=== PATIENT | female | born 1955 | race Hispanic/Latino ===

== ENCOUNTER 2019-07-25 11:08 | Emergency (ER) | payer OTHER ==
[2019-07-25] MEDS ORDERED: NA CHLORIDE 0.9% 2,000 ML ONE (11:49)
--- NOTE | 2019-07-25 12:15 | RAD REPORT ---
EXAM DESCRIPTION: RAD - Chest Single View - 07/25/2019 12:09 pm CLINICAL HISTORY: abdominal pain Chest pain. COMPARISON: Chest Pa And Lat (2 Views) dated 02/10/2017; CHEST PA AND LAT 2 VIEW dated 11/23/2011; SUNSHINE ST SINGLE VIEW dated 03/03/2011; CHEST SINGLE VIEW dated 02/10/2011 FINDINGS: Portable technique limits examination quality. The lungs are grossly clear. The heart is normal in size. No displaced fractures. IMPRESSION: No acute intrathoracic process suspected.
[2019-07-25] MEDS ORDERED: metroNIDAZOLE 500 MG TABLET ONE (12:39)
[2019-07-25] MEDS ORDERED: ACETAMINOPHEN 500 MG TAB ONE (12:40)
[2019-07-25] MEDS ORDERED: CIPROFLOXACIN 400mg IV 0 MG/0 ML BAG IV ONE (12:40)
[2019-07-25 12:41] LABS: Absolute Lymphocytes (CBC) 1.2 K/uL (0.7-4.9); Basophils % 0.5 % (0-1.3); Hematocrit 42.7 % (36.0-45.0); Lymphocytes % 7.4 % (15.3-44.8); MPV 9.1 fL (7.6-11.3); RBC Red Blood Cell Count 5.11 M/uL (3.86-4.86)
[2019-07-25] MEDS ORDERED: Levofloxacin500mg IV 500 MG/100 ML BAG IV ONE (12:42)
[2019-07-25 12:58] LABS: ALT/SGPT 24 U/L (12-78); AST/SGOT 17 U/L (15-37); Albumin 4.2 g/dL (3.4-5.0); Alkaline Phosphatase 87 U/L (45-117); Amylase Level 34 U/L (25-115); BUN Blood Urea Nitrogen 11 mg/dL (7-18); Bicarbonate 23 mmol/L (21-32); Bilirubin Direct 0.2 mg/dL (0-0.2); Bilirubin Total 1.1 mg/dL (0.2-1.0); CKMB Creatine Kinase MB < 1.0 ng/mL (0.3-3.6); Creatine Phosphokinase 45 U/L (26-192); Glucose Level 102 mg/dL (74-106); Lipase 79 U/L (73-393); Potassium 3.6 mmol/L (3.5-5.1); Protein, Total 8.5 g/dL (6.4-8.2); Sodium Level 139 mmol/L (136-145); Troponin (Emerg Dept Use Only) < 0.02 ng/mL (0.0-0.045)
[2019-07-25 13:00] LABS: Urine Blood 2+ (NEG); Urine Glucose NEGATIVE (NEG); Urine Protein NEGATIVE (NEG); Urine Specific Gravity 1.015 (1.005-1.030)
[2019-07-25 13:07] LABS: Urine Bacteria <20 /HPF (<20); Urine Culture Reflex Order NOT NEEDED; Urine RBC <5 /HPF (NONE SEEN)
[2019-07-25 13:13] LABS: Blood Morphology Comment NOT SEEN (NOT SEEN); Platelet Estimate ADEQ; Urine White Blood Cell Casts OK
--- NOTE | 2019-07-25 13:37 | RAD REPORT ---
EXAM DESCRIPTION: CT - Head Brain Wo Cont - 07/25/2019 1:27 pm CLINICAL HISTORY: HEADACHE Headache, drowsiness COMPARISON: SINUS W O CONTRAST dated 04/06/2009 TECHNIQUE: All CT scans are performed using dose optimization technique as appropriate and may inclu de automated exposure control or mA/KV adjustment according to patient size. FINDINGS: No intracranial hemorrhage, hydrocephalus or extra-axial fluid collection.No areas of brai n edema or evidence of midline shift. The paranasal sinuses and mastoids are clear. The calvarium is intact. IMPRESSION: No acute intracranial abnormality.
--- NOTE | 2019-07-25 13:43 | RAD REPORT ---
EXAM DESCRIPTION: CTAbdomen Pelvis W Contrast - 07/25/2019 1:27 pm CLINICAL HISTORY: Abdominal pain. ABD PAIN COMPARISON: Abdomen Pelvis W Contrast dated 02/10/2017; CT ABD PELVIS W CONTRAST dated 08/08/2013; CT ABD PELVIS W CONTRAST dated 12/17/2008 TECHNIQUE: Biphasic CT imaging of the abdomen and pelvis was performed with 100 ml non-ionic IV cont rast. All CT scans are performed using dose optimization technique as appropriate and may include automated exposure control or mA/KV adjustment according to patient size. FINDINGS: The lung bases are emphysematous but clear. Diffuse fatty liver is present. No focal liver lesion or biliary dilatation. The spleen, pancreas, ad renal glands and kidneys are within normal limits. No bowel obstruction, free air, free fluid or abscess. Small fat containing umbilical hernia. The tania endix is normal. Inflammatory changes are present surrounding a short segment of the sigmoid colon in the left lower quadrant measuring 5-6 cm. This likely represents moderate acute diverticulitis. No e vidence of significant lymphadenopathy. No suspicious bony findings. IMPRESSION: Moderate acute left lower quadrant sigmoid diverticulitis is seen.
[2019-07-25] MEDS ORDERED: ONDANSETRON 4 MG/2 ML VIAL ONE (14:15)
[2019-07-25] MEDS ORDERED: MORPHINE 4 MG/ML SYR ONE (14:15)
--- NOTE | 2019-07-25 14:34 | ER ---
Nurse's Notes [facility] Name: Awa Tracy Age: 63 yrs Sex: Female : 1955 Arrival Date: 07/25/2019 Time: 11:14 Bed 2 Private MD: Baljeet Luevano F Diagnosis: Sigmoid diverticulitis;Abdominal and pelvic pain;Headache Presentation: 07/25 11:33 Presenting complaint: Patient states: "Last night I started having pain all down here aj1 (pt points to lower abdomen) and I was just shaking and so cold and nauseated and I have a bad headache" Patient reports RLQ and LLQ abdominal pain. Reports N/V/D. Reports fever. Transition of care: patient was not received from another setting of care. Onset of symptoms was July 2019. Risk Assessment: Do you want to hurt yourself or someone else? Patient reports no desire to harm self or others. Initial Sepsis Screen: Does the patient meet any 2 criteria? HR > 90 bpm. No. Patient's initial sepsis screen is negative. Does the patient have a suspected source of infection? Yes: Acute abdominal pain. Care prior to arrival: None. 11:33 Method Of Arrival: Ambulatory aj1 11:33 Acuity: NICHOL 3 aj1 Triage Assessment: 11:36 General: Appears in no apparent distress. uncomfortable, Behavior is calm, cooperative, aj1 appropriate for age. Pain: Complains of pain in right lower quadrant and left lower quadrant. Neuro: Level of Consciousness is awake, alert, obeys commands. Cardiovascular: Patient's skin is warm and dry. Respiratory: Airway is patent Respiratory effort is even, unlabored, Respiratory pattern is regular, symmetrical. GI: Reports diarrhea, nausea, vomiting. Historical: - Allergies: 11:36 PENICILLINS; aj1 - Home Meds: 11:36 Coreg 6.25 mg Oral tab 1 tab 2 times per day [Active]; Livalo 2 mg Oral tab 1 tab once aj1 daily [Active]; amlodipine oral [Active]; - PMHx: 11:36 Hyperlipidemia; Hypertension; aj1 - Immunization history:: Flu vaccine is not up to date. - Coronavirus screen:: The patient has NOT traveled to [place], [place], or [place] in the past 14 days. - Social history:: Smoking status: Patient/guardian denies using tobacco. - Ebola Screening: : Patient denies travel to an Ebola-affected area in the 21 days before illness onset. Screenin:30 Abuse screen: Denies threats or abuse. Denies injuries from another. Nutritional jl7 screening: No deficits noted. Tuberculosis screening: No symptoms or risk factors identified. Fall Risk IV access (20 points). Total Baumann Fall Scale indicates No Risk (0-24 pts). Assessment: 12:00 General: Appears in no apparent distress. uncomfortable, ill, Behavior is cooperative. jl7 Pain: Complains of pain in left lower quadrant and right lower quadrant Pain currently is 9 out of 10 on a pain scale. Pain began 1 day ago. Is continuous. Pain: Complains of pain in GUTIERREZ Pain currently is 8 out of 10 on a pain scale. Neuro: Level of Consciousness is awake, alert, obeys commands, Oriented to person, place, time, situation. Cardiovascular: Patient's skin is warm and dry. Respiratory: Airway is patent Respiratory effort is even, unlabored, Respiratory pattern is regular, symmetrical. GI: Bowel sounds present X 4 quads. Abdomen is tender to palpation in right lower quadrant and left lower quadrant Reports diarrhea, nausea, vomiting. : No signs and/or symptoms were reported regarding the genitourinary system. Derm: Skin is pink, warm \\T\\ dry. 13:00 Reassessment: Patient appears in no apparent distress at this time. No changes from jl7 previously documented assessment. Patient and/or family updated on plan of care and expected duration. Pain level reassessed. Patient is alert, oriented x 3, equal unlabored respirations, skin warm/dry/pink. 14:04 Reassessment: Patient appears in no apparent distress at this time. Patient and/or jl7 family updated on plan of care and expected duration. Pain level reassessed. Patient is alert, oriented x 3, equal unlabored respirations, skin warm/dry/pink. GUTIERREZ rated 5/10, abdominal pain rated 9/10, ERD notified, see MAR for orders. Vital Signs: 11:36 BP 137 / 106; Pulse 110; Resp 18; Temp 100.1; Pulse Ox 95% ; Weight 71.21 kg (R); aj1 Height 5 ft. 4 in. (162.56 cm) (R); Pain 9/10; 12:30 BP 143 / 87; Pulse 98; Resp 17 S; Temp 98.8(O); Pulse Ox 96% on R/A; jl7 14:00 BP 122 / 79; Pulse 89; Resp 17 S; Pulse Ox 95% on R/A; Pain 9/10; jl7 14:23 BP 134 / 78; Pulse 87; Resp 19 S; Pulse Ox 96% on R/A; Pain 2/10; jl7 11:36 Body Mass Index 26.95 (71.21 kg, 162.56 cm) aj1 ED Course: 11:14 Patient arrived in ED. es 11:14 Baljeet Luevano MD is Private Physician. es 11:35 Triage completed. aj1 11:36 Arm band placed on Patient placed in an exam room. aj1 11:39 Pasquale Lopez, EJ is Primary Nurse. jl7 11:42 Hitehs Sagastume MD is Attending Physician. kdr 12:00 Patient has correct armband on for positive identification. Placed in gown. Bed in low jl7 position. Call light in reach. Side rails up X2. monitoring specialist on. Pulse ox on. NIBP on. Warm blanket given. 12:10 Chest Single View XRAY In Process Unspecified. EDMS 12:19 EKG done, by ED staff, reviewed by Hitesh Sagastume MD. jb1 12:20 Inserted saline lock: 22 gauge in right forearm, using aseptic technique. Blood jl7 collected. 12:20 Initial lab(s) drawn, by ne, sent to lab. First set of blood cultures drawn by me. jl7 12:40 Second set of blood cultures drawn by me. jl7 13:27 CT Head Brain wo Cont In Process Unspecified. EDMS 13:27 CT completed. Patient tolerated procedure well. Patient moved back from CT. bq 13:28 CT Abd/Pelvis - IV Contrast Only In Process Unspecified. EDMS 14:30 Hitesh Saagstume MD is Referral Physician. kdr 14:49 No provider procedures requiring assistance completed. IV discontinued, intact, ss bleeding controlled, No redness/swelling at site. Pressure dressing applied. Administered Medications: 12:25 Drug: NS 0.9% (30 ml/kg) 30 ml/kg Route: IV; Rate: bolus; Site: right forearm; jl7 14:50 Follow up: IV Status: Completed infusion ss 12:50 Drug: LevaQUIN 500 mg Volume: 100 ml; Route: IVPB; Infused Over: 60 mins; Site: right jl7 forearm; 13:20 Follow up: IV Pause: 07/25/2019 13:20; IV Pause Reason: Patient to CT jl7 13:50 Follow up: IV Resume: 07/25/2019 13:50; IV Resume Reason: Patient returned from CT jl7 14:18 Follow up: Response: No adverse reaction; IV Status: Completed infusion jl7 12:55 Drug: Flagyl 500 mg Route: PO; jl7 14:18 Follow up: Response: No adverse reaction jl7 13:00 Drug: Tylenol 1000 mg Route: PO; jl7 14:03 Follow up: Response: No adverse reaction; Pain is decreased jl7 14:12 Drug: Zofran 4 mg Route: IVP; Site: right forearm; jl7 14:22 Follow up: Response: No adverse reaction jl7 14:14 Drug: morphine 4 mg Route: IVP; Site: right forearm; jl7 14:22 Follow up: Response: No adverse reaction; Pain is decreased 7 Outcome: 14:33 [address] ordered [address] . [facility] 14:49 Discharged to home via wheelchair, with family. 14:49 Condition: good 14:49 Instructed on discharge instructions, follow up and referral plans. medication usage, Demonstrated understanding of instructions, follow-up care, medications, Prescriptions given X 4. 14:49 Patient left the ED. Signatures: Dispatcher [employer] Rolando Gallegos jb1 Sagrario Sanchez RN RN aj1 Hitesh Sagastume MD MD kdr Salyer, Edna es Quilty, Betty bq Smirch, Shelby, RN RN Pasquale Lopez RN RN jl7 Corrections: (The following items were deleted from the chart) 11:46 11:33 Initial Sepsis Screen: Does the patient meet any 2 criteria? HR > 90 bpm. No. aj1 Patient's initial sepsis screen is negative. Does the patient have a suspected source of infection? Yes: Acute abdominal pain aj1
--- NOTE | 2019-07-25 14:34 | EDPHYS ---
Physician Documentation [facility] Name: Awa Tracy Age: 63 yrs Sex: Female : 1955 Arrival Date: 07/25/2019 Time: 11:14 Bed 2 Private MD: Baljeet Luevano F ED Physician Hitesh Sagastume HPI: 07/25 12:09 This 63 yrs old Female presents to ER via Ambulatory with complaints of kdr Abdominal Pain, Fever, Headache, Nausea. 12:09 The patient reports fever, not measured (subjective). Onset: The symptoms/episode kdr began/occurred gradually, yesterday. Modifying factors: there are no obvious modifying factors. Associated signs and symptoms: Pertinent positives: abdominal pain, chills, decreased appetite, headache, myalgias, nausea. Severity of symptoms: At their worst the symptoms were moderate in the emergency department the symptoms are unchanged. The patient has not experienced similar symptoms in the past. The patient has not recently seen a physician. Historical: - Allergies: 11:36 PENICILLINS; aj1 - Home Meds: 11:36 Coreg 6.25 mg Oral tab 1 tab 2 times per day [Active]; Livalo 2 mg Oral tab 1 tab once aj1 daily [Active]; amlodipine oral [Active]; - PMHx: 11:36 Hyperlipidemia; Hypertension; aj1 - Immunization history:: Flu vaccine is not up to date. - Coronavirus screen:: The patient has NOT traveled to [place], [place], or [place] in the past 14 days. - Social history:: Smoking status: Patient/guardian denies using tobacco. - Ebola Screening: : Patient denies travel to an Ebola-affected area in the 21 days before illness onset. ROS: 12:09 Constitutional: Negative for weight loss - the patient hsa had subjective fever and kdr chills after the onset of her abdominal pain Eyes: Negative for injury, pain, redness, and discharge, ENT: Negative for injury, pain, and discharge, Neck: Negative for injury, pain, and swelling, Cardiovascular: Negative for chest pain, palpitations, and edema, Respiratory: Negative for shortness of breath, cough, wheezing, and pleuritic chest pain, Back: Negative for injury and pain, : Negative for injury, bleeding, discharge, and swelling, MS/Extremity: Negative for injury and deformity, Skin: Negative for injury, rash, and discoloration, Neuro: Negative for headache, weakness, numbness, tingling, and seizure activity. Psych: Negative for depression, anxiety, suicide ideation, homicidal ideation, and hallucinations, Allergy/Immunology: Negative for hives, rash, and allergies, Endocrine: Negative for neck swelling, polydipsia, polyuria, polyphagia, and marked weight changes, Hematologic/Lymphatic: Negative for swollen nodes, abnormal bleeding, and unusual bruising. 12:09 Abdomen/GI: Positive for abdominal pain, nausea, diarrhea, abdominal cramps, Negative for vomiting, constipation, abdominal distension, dysphagia, black/tarry stool, rectal pain, rectal bleeding, bowel incontinence. Exam: 12:09 Constitutional: This is a well developed, well nourished patient who is awake, alert, kdr and in no acute distress. Head/Face: Normocephalic, atraumatic. Eyes: Pupils equal round and reactive to light, extra-ocular motions intact. Lids and lashes normal. Conjunctiva and sclera are non-icteric and not injected. Cornea within normal limits. Periorbital areas with no swelling, redness, or edema. Neck: Trachea midline, no thyromegaly or masses palpated, and no cervical lymphadenopathy. Supple, full range of motion without nuchal rigidity, or vertebral point tenderness. No Meningismus. Chest/axilla: Normal chest wall appearance and motion. Nontender with no deformity. No lesions are appreciated. Cardiovascular: Regular rate and rhythm with a normal S1 and S2. No gallops, murmurs, or rubs. Normal PMI, no JVD. No pulse deficits. Respiratory: Lungs have equal breath sounds bilaterally, clear to auscultation and percussion. No rales, rhonchi or wheezes noted. No increased work of breathing, no retractions or nasal flaring. Abdomen/GI: Soft, non-tender, with normal bowel sounds. No distension or tympany. No guarding or rebound. No evidence of tenderness throughout. Back: No spinal tenderness. No costovertebral tenderness. Full range of motion. Skin: Warm, dry with normal turgor. Normal color with no rashes, no lesions, and no evidence of cellulitis. MS/ Extremity: Pulses equal, no cyanosis. Neurovascular intact. Full, normal range of motion. Neuro: Awake and alert, GCS 15, oriented to person, place, time, and situation. Cranial nerves II-XII grossly intact. Motor strength 5/5 in all extremities. Sensory grossly intact. Cerebellar exam normal. Normal gait. Psych: Awake, alert, with orientation to person, place and time. Behavior, mood, and affect are within normal limits. Vital Signs: 11:36 BP 137 / 106; Pulse 110; Resp 18; Temp 100.1; Pulse Ox 95% ; Weight 71.21 kg (R); aj1 Height 5 ft. 4 in. (162.56 cm) (R); Pain 9/10; 12:30 BP 143 / 87; Pulse 98; Resp 17 S; Temp 98.8(O); Pulse Ox 96% on R/A; jl7 14:00 BP 122 / 79; Pulse 89; Resp 17 S; Pulse Ox 95% on R/A; Pain 9/10; jl7 14:23 BP 134 / 78; Pulse 87; Resp 19 S; Pulse Ox 96% on R/A; Pain 2/10; jl7 11:36 Body Mass Index 26.95 (71.21 kg, 162.56 cm) aj1 MDM: 14:33 Patient medically screened. kdr 17:06 Data reviewed: vital signs, nurses notes, lab test result(s), radiologic studies. kdr Counseling: I had a detailed discussion with the patient and/or guardian regarding: the historical points, exam findings, and any diagnostic results supporting the discharge/admit diagnosis, lab results, radiology results, the need for outpatient follow up. 07/25 11:44 Order name: Amylase, Serum; Complete Time: 14:29 [facility] 07/25 11:44 Order name: Basic Metabolic Panel; Complete Time: 14:29 [facility] 07/25 11:44 Order name: Blood Culture Adult (2) [facility] 07/25 11:44 Order name: CBC with Diff; Complete Time: 14:29 [facility] 07/25 11:44 Order name: Ckmb; Complete Time: 14:29 [facility] 07/25 11:44 Order name: CPK; Complete Time: 14:29 [facility] 07/25 11:44 Order name: Lactate; Complete Time: 12:58 [facility] 07/25 11:44 Order name: LFT's; Complete Time: 14: [facility] 07/25 11:44 Order name: Lipase; Complete Time: 14:29 [facility] 07/25 11:44 Order name: Procalcitonin; Complete Time: 14:29 [facility] 07/25 11:44 Order name: Protime (+inr); Complete Time: 12:58 [facility] 07/25 11:44 Order name: Ptt, Activated; Complete Time: 12:58 [facility] 07/25 11:44 Order name: Troponin (emerg Dept Use Only); Complete Time: 14:29 [facility] 07/25 11:44 Order name: Urine Microscopic Only; Complete Time: 14:29 [facility] 07/25 11:44 Order name: Chest Single View XRAY; Complete Time: 12:58 [facility] 07/25 11:44 Order name: Accucheck; Complete Time: 12:51 [facility] 07/25 11:44 Order name: Cardiac monitoring; Complete Time: 12:51 [facility] 07/25 11:44 Order name: EKG - Nurse/Tech; Complete Time: 12:51 [facility] 07/25 12:08 Order name: CT Head Brain wo Cont; Complete Time: 14: [facility] 07/25 12:08 Order name: CT Abd/Pelvis - IV Contrast Only; Complete Time: 14: [facility] 07/25 12:33 Order name: Urine Dipstick--Ancillary (enter results); Complete Time: 14:29 07/25 12:33 Order name: Urine --Ancillary (enter results); Complete Time: 14:29 07/25 12:35 Order name: Glucose, Ancillary Testing; Complete Time: 12:58 [facility] 07/25 13:14 Order name: CBC Smear Scan; Complete Time: 14:29 [facility] 07/25 11:44 Order name: IV Saline Lock - Large Bore; Complete Time: 12:51 [facility] 07/25 11:44 Order name: Labs collected and sent; Complete Time: 12:52 [facility] 07/25 11:44 Order name: O2 Per Protocol; Complete Time: 12:52 [facility] 07/25 11:44 Order name: O2 Sat Monitoring; Complete Time: 12:52 [facility] 07/25 11:44 Order name: Urine Dipstick-Ancillary (obtain specimen); Complete Time: 12:51 [facility] EC:09 Rate is 104 beats/min. Rhythm is regular, Sinus tachycardia with No ectopy. QRS Drifting is kdr Normal. Left axis deviation noted. OR interval is normal. QRS interval is normal. Clinical impression: NSR w/ Non-specific ST/T Changes and Sinus tachycardia. Administered Medications: 12:25 Drug: NS 0.9% (30 ml/kg) 30 ml/kg Route: IV; Rate: bolus; Site: right forearm; jl7 14:50 Follow up: IV Status: Completed infusion ss 12:50 Drug: LevaQUIN 500 mg Volume: 100 ml; Route: IVPB; Infused Over: 60 mins; Site: right jl7 forearm; 13:20 Follow up: IV Pause: 07/25/2019 13:20; IV Pause Reason: Patient to CT jl7 13:50 Follow up: IV Resume: 07/25/2019 13:50; IV Resume Reason: Patient returned from CT jl7 14:18 Follow up: Response: No adverse reaction; IV Status: Completed infusion jl7 12:55 Drug: Flagyl 500 mg Route: PO; jl7 14:18 Follow up: Response: No adverse reaction jl7 13:00 Drug: Tylenol 1000 mg Route: PO; jl7 14:03 Follow up: Response: No adverse reaction; Pain is decreased jl7 14:12 Drug: Zofran 4 mg Route: IVP; Site: right forearm; jl7 14:22 Follow up: Response: No adverse reaction jl7 14:14 Drug: morphine 4 mg Route: IVP; Site: right forearm; jl7 14:22 Follow up: Response: No adverse reaction; Pain is decreased jl7 Disposition: 07/25/19 14:33 Discharged to Home. Impression: Sigmoid diverticulitis, Abdominal and pelvic pain, Headache. - Condition is Stable. - Discharge Instructions: Diverticulitis, Ddyp-do-Lyac, Abdominal Pain, Adult, Eprj-rx-Wall, General Headache Without Cause, [id number]-iz-Tdao. - Prescriptions for Flagyl 500 mg Oral Tablet - take 1 tablet by ORAL route every 6 hours for 10 days; 40 tablet. Zofran 4 mg Oral Tablet - take 1 tablet by ORAL route every 12 hours As needed; 6 tablet. Cipro 500 mg Oral Tablet - take 1 tablet by ORAL route every 12 hours for 7 days; 14 tablet. Tramadol 50 mg Oral Tablet - take 1 tablet by ORAL route every 8 hours as needed; 12 tablet. - Medication Reconciliation Form, Thank You Letter, Antibiotic Education, Prescription Opioid Use form. - Follow up: Hitesh Sagastume MD; When: 2 - 3 days; Reason: If symptoms return, Further diagnostic work-up, Recheck today's complaints, Continuance of care, Re-evaluation by your physician. - Problem is an acute exacerbation. - Symptoms have improved. Signatures: Dispatcher [employer] EDMS Sagrario Sanchez RN RN aj1 Hitesh Sagastume MD MD [facility] Shayy Sanches RN RN ss Pasquale Lopez RN RN jl7 Corrections: (The following items were deleted from the chart) 14:49 14:33 07/25/2019 14:33 Discharged to Home. Impression: Sigmoid diverticulitis; ss Abdominal and pelvic pain; Headache. Condition is Stable. Forms are Medication Reconciliation Form, Thank You Letter, Antibiotic Education, Prescription Opioid Use. Follow up: Dr. Hitesh Sagastume; When: 2 - 3 days; Reason: If symptoms return, Further diagnostic work-up, Recheck today's complaints, Continuance of care, Re-evaluation by your physician. Problem is an acute exacerbation. Symptoms have improved. kdr
[2019-07-25 14:58] VITALS: TEMP 98.8
[2019-07-25 15:01] VITALS: BP 134/78; O2SAT 96
--- NOTE | 2019-07-26 12:00 | EKG ---
Test Date: 2019-07-25 Test Time: 12:13:04 Acetylene Burner: SUZIE MEASUREMENT RESULTS: Intervals: Rate: 104 CO: 192 QRSD: 88 QT: 308 QTc: 405 [place]: P: 20 CO: 192 QRS: -21 T: -24 INTERPRETIVE STATEMENTS: Sinus tachycardia Minimal voltage criteria for LVH, may be normal variant ST & T wave abnormality, consider anterior ischemia Abnormal ECG Compared to ECG 02/10/2017 19:06:15 Left ventricular hypertrophy now present ST (T wave) deviation now present Possible ischemia now present Sinus rhythm no longer present Myocardial infarct finding no longer present Electronically Signed On 07-26-19 11:59:48 SPECIAL EVENTS COORDINATOR by Jose Luis Galvan
== END 2019-07-25 14:49 | disposition home or self-care (01) ==
LOC: ER 11:08
DX: K57.32 Diverticulitis of large intestine without perforation or abscess without bleeding (principal); R51 Headache; I10 Essential (primary) hypertension; E78.5 Hyperlipidemia, unspecified; Z88.0 Allergy status to penicillin
CPT/HCPCS: 96365; 93005; 87040 ×2; 85025; 80048; 36415; 82150; 82550; 81025; 85610; 82947; 80076; 83605; 85730; 84484; 82553; 83690; 84145; 70450; 74177; 71045; 96375; 99285; Q9967; J7030; J2405; 81003; 81015; J0744

== ENCOUNTER 2019-07-28 09:39 | Inpatient (IN) | payer OTHER ==
[2019-07-28 11:24] VITALS: BMI 26.6
[2019-07-28] MEDS: NA CHLORIDE 0.9% 1,000 ML IV SCH ×2 (12:05→23:11)
[2019-07-28] MEDS: METRONIDAZOLE 500mg IVPB 500 MG/100 ML BAG IV SCH ×3 (12:06→23:11)
[2019-07-28] MEDS: CIPROFLOXACIN 400mg IV 400 MG/200 ML BAG IV SCH ×2 (12:06→20:21)
[2019-07-28 12:14] LABS: Potassium 3.6 mmol/L (3.5-5.1)
[2019-07-28 12:17] LABS: Absolute Lymphocytes (CBC) 1.1 K/uL (0.7-4.9); Basophils % 0.4 % (0-1.3); Hematocrit 37.3 % (36.0-45.0); Lymphocytes % 13.5 % (15.3-44.8); MPV 8.9 fL (7.6-11.3); RBC Red Blood Cell Count 4.41 M/uL (3.86-4.86)
[2019-07-28] MEDS ORDERED: FENTANYL 25 MCG/PATCH TD SCH (12:41)
[2019-07-28] MEDS: ONDANSETRON 4 MG/2 ML VIAL IV PRN ×2 (13:07→20:23)
[2019-07-28] MEDS: DIPHENHYDRAMINE 50 MG/ML VIAL IV PRN ×2 (13:07→20:20)
[2019-07-28] MEDS: ATORVASTATIN 20 MG TAB PO SCH (20:21)
[2019-07-28] MEDS ORDERED: PITAVASTATIN CALCIUM PO SCH (21:00)
--- NOTE | 2019-07-28 22:39 | HP ---
Date of Admission: 07/28/2019 History Of Present Illness: A 63-year-old female who came to the emergency room 3 days ago complaini ng of left lower quadrant pain along with nausea and vomiting. She was found to have sigmoid diverti culitis, acute. She was sent home on oral Flagyl and Cipro. However, the patient was taking those m edicines over the past 3 days. Her pain has not improved. She still has nausea and vomiting, cannot keep her medicines. She started feeling febrile and having chills, came to my office. I thought th at with patient failing outpatient treatment for active diverticulitis and cannot keep her medication s, she needs to be put on IV antibiotics and we went ahead and admitted her for that. Review of Systems: Gastrointestinal: As above. Cardiovascular: No complaints. Respiratory: No complaints. Genitourinary: No complaints. Skeletomuscular: No complaints. Neurological: No complaints. Past Medical History: 1.Hypertension. 2.Hyperlipidemia. Social History: No smoking, alcohol, or IV drug abuse history. Family History: Noncontributing. Medications: Coreg 6.25 mg 1 p.o. b.i.d., amlodipine 5 mg p.o. daily, and Livalo 2 mg p.o. daily. Allergies: PENICILLIN. Physical Examination: Vital Signs: Blood pressure in my office was 135/75, pulse was 88, and temperature 99.2. Heart: Regular rate and rhythm. Chest: Clear to auscultation. Abdomen: Soft with significant left lower quadrant tenderness. No rigidity. Bowel sounds are activ e. Extremities: No edema. No cyanosis. Peripheral pulses are felt. Neurological: Alert, oriented, nonfocal. Grossly intact. Imaging: Abdominal CAT scan done on 07/25, showed left lower quadrant sigmoid diverticuli tis, moderate. The patient also was complaining of headache in the emergency room. She had a head C AT scan, no acute pathology. EKG; minimal voltage criteria for LVH, nonspecific ST-T wave abnormality. Her white cell count done back on 07/25/2019, her white cell count was 16.3 with a lef t shift. Hemoglobin 14.2, hematocrit 42.7, platelets 204. Chemistry; chloride 109, GFR of 74, rest as noted. Assessment And Plan: Acute sigmoid diverticulitis, but failed home outpatient treatment. The patien t is being admitted. We will put her on IV Flagyl and IV Cipro antibiotic. We will do blood culture s and we will follow up on her electrolytes, chemistry, and CBC. We will continue her home medicatio ns for chronic medical illnesses and depending on her response, we will consider repeat CAT scan ____ . MFS/MODL Voice ID: [id number]
[2019-07-29] MEDS ORDERED: HYDROCODONE/APAP 7.5/325 MG TAB PO PRN (00:48)
[2019-07-29] MEDS: NA CHLORIDE 0.9% 1,000 ML IV SCH (00:51)
[2019-07-29 04:18] LABS: Absolute Lymphocytes (CBC) 1.3 K/uL (0.7-4.9); Basophils % 0.8 % (0-1.3); Hematocrit 35.9 % (36.0-45.0); Lymphocytes % 18.7 % (15.3-44.8); MPV 8.9 fL (7.6-11.3); RBC Red Blood Cell Count 4.23 M/uL (3.86-4.86)
[2019-07-29 04:25] VITALS: O2SAT 95
[2019-07-29] MEDS: METRONIDAZOLE 500mg IVPB 500 MG/100 ML BAG IV SCH ×3 (05:17→18:20)
--- NOTE | 2019-07-29 08:24 | RAD REPORT ---
EXAM DESCRIPTION: CT - Abdomen Wo Contrast - 07/29/2019 7:31 am CLINICAL HISTORY: Abdominal pain COMPARISON: July 25, 2019 TECHNIQUE: Computed axial tomography from the diaphragm to the iliac crest was obtained. IV and oral contrast not requested All CT scans are performed using dose optimization technique as appropriate and may include automated exposure control or mA/KV adjustment according to patient size. FINDINGS: The evaluation of solid organs, bowel and vessels is limited secondary to the lack of IV c ontrast administration. Fatty liver The spleen, adrenals, pancreas and kidneys appear grossly normal. No ascites is seen. The visualized bowel caliber and wall thickness is normal. Tiny umbilical hernia The sigmoid colon is not evaluated on this exam it has a CT pelvis was not performed IMPRESSION: No acute abnormality is displayed. The sigmoid colon is not evaluated on this exam
[2019-07-29] MEDS: CIPROFLOXACIN 400mg IV 400 MG/200 ML BAG IV SCH ×2 (08:50→21:09)
[2019-07-29] MEDS: carvediloL 12.5 MG TAB PO SCH (08:54)
[2019-07-29] MEDS: AMLODIPINE 2.5 MG TAB PO SCH (08:55)
[2019-07-29] MEDS: ONDANSETRON 4 MG/2 ML VIAL IV PRN ×2 (11:53→21:09)
--- NOTE | 2019-07-29 15:56 | PN ---
Subjective: Patient reports this morning marked decrease in abdominal pain. Her appetite is opened and she is hungry. She is feeling much better. Objective: Vital Signs: Blood pressure 125/75, pulse 75, temperature 97.5. Heart: Regular rate and rhythm. Chest: Clear to auscultation. Abdomen: Soft. Very minimal tenderness and markedly less than on admission in the left lower quadra nt. Has no rigidity. No rebound. Bowel sounds are active. Extremities: No edema. Peripheral pulses are felt. Neurological: Alert, oriented, grossly intact. Diagnostic Studies: Patient's abdominal CAT scan although showed no other pathology acute. White ce ll count of 7.1. The rest of CBC noted. Assessment And Plan: Acute sigmoid diverticulitis, clinically markedly improved. We will start the patient on liquid diet and rest of this is tolerated. We will discharge the patient in the morning. Look orders for details. MFS/MODL Voice ID: [id number] Report ID: [id number]
[2019-07-29] MEDS: ATORVASTATIN 20 MG TAB PO SCH (21:08)
[2019-07-29] MEDS: DIPHENHYDRAMINE 50 MG/ML VIAL IV PRN (21:09)
[2019-07-30] MEDS: NA CHLORIDE 0.9% 1,000 ML IV SCH (01:08)
[2019-07-30] MEDS: METRONIDAZOLE 500mg IVPB 500 MG/100 ML BAG IV SCH ×2 (01:08→05:10)
[2019-07-30] MEDS: CIPROFLOXACIN 400mg IV 400 MG/200 ML BAG IV SCH (08:50)
[2019-07-30] MEDS: AMLODIPINE 2.5 MG TAB PO SCH (08:50)
[2019-07-30] MEDS: carvediloL 12.5 MG TAB PO SCH (08:51)
[2019-07-30] MEDS: DIPHENHYDRAMINE 50 MG/ML VIAL IV PRN (09:26)
[2019-07-30 12:20] VITALS: BP 114/62; TEMP 97.3
[2019-07-30] MEDS: ONDANSETRON 4 MG/2 ML VIAL IV PRN (13:10)
--- NOTE | 2019-08-09 02:23 | DS ---
Date of Discharge: 07/30/2019 History: A 64-year-old female who was admitted to the hospital because of acute sigmoid diverticulit is after failing outpatient and home treatment with Cipro and Flagyl antibiotics. The patient jose gaytan visited the emergency room about 3 days before her admission, she was discharged on those oral an tibiotics, however she came back to my office complaining of still significant pain in the left lower quadrant along, was feeling febrile and since she has failed that outpatient treatment, went ahead a nd admitted her for that. Past Medical History: As per admit note. Social History: As per admit note. Family History: As per admit note. Medications: As per admit note. Allergies: PER ADMIT NOTE. Physical Examination: As per admit note. Diagnostic Data: As per admit note. Hospital Course: The patient was admitted. She was put back on IV Flagyl and IV Cipro. We followed up on her electrolytes and chemistries and continue on her home medications for chronic medical illn esses. Blood cultures also were drawn as her temperature spikes. Abdominal CT scan was done and miguel angel wed no other abnormalities other than what was initially mentioned in her sigmoid in the previous CT scan. The patient's abdominal pain gradually resolved and her tenderness in the left lower quadrant resolved to where we thought now she can be discharged home on oral Flagyl and Cipro and to resume he r home medications and follow up with me. Look discharge orders for details. MFS/MODL Voice ID: [id number] Report ID: [id number]
== END 2019-07-30 13:33 | disposition home or self-care (01) | DRG 392 ==
LOC: 4TH 11:08
PROVIDERS: ADMIT Internal Medicine; ATTEND Internal Medicine
DX: K57.32 Diverticulitis of large intestine without perforation or abscess without bleeding (principal); I10 Essential (primary) hypertension; E78.5 Hyperlipidemia, unspecified
CPT/HCPCS: 36415; 70450; 71045; 74150; 74177; 80048; 80076; 81003; 81015; 81025; 82150; 82550; 82553; 82947; 83605; 83690; 84145; 84146; 84484; 85025; 85610; 85730; 87040; 93005; 96365; 96375; 99285; J0744; J1200; J2405; J7030; Q9967

== ENCOUNTER 2019-10-28 09:44 | Emergency (ER) | payer OTHER ==
[2019-10-28] MEDS ORDERED: NA CHLORIDE 0.9% 1,000 ML ONE (10:10)
[2019-10-28] MEDS ORDERED: MORPHINE 4 MG/ML SYR ONE (10:10)
[2019-10-28] MEDS ORDERED: ONDANSETRON 4 MG/2 ML VIAL ONE (10:10)
[2019-10-28 10:24] LABS: Absolute Lymphocytes (CBC) 1.1 K/uL (0.7-4.9); Basophils % 0.9 % (0-1.3); Hematocrit 44.8 % (36.0-45.0); Lymphocytes % 17.8 % (15.3-44.8); MPV 8.6 fL (7.6-11.3); RBC Red Blood Cell Count 5.33 M/uL (3.86-4.86)
[2019-10-28 10:28] LABS: Urine Blood TRACE (NEG); Urine Glucose NEGATIVE (NEG); Urine Protein NEGATIVE (NEG)
[2019-10-28 10:40] LABS: Albumin 4.2 g/dL (3.4-5.0); Bilirubin Direct 0.2 mg/dL (0-0.2); Bilirubin Total 0.9 mg/dL (0.2-1.0); Potassium 3.8 mmol/L (3.5-5.1); Protein, Total 8.8 g/dL (6.4-8.2)
--- NOTE | 2019-10-28 11:08 | RAD REPORT ---
EXAM DESCRIPTION: CTAbdomen Pelvis W Contrast - 10/28/2019 10:59 am CLINICAL HISTORY: Abdominal pain. ABD PAIN COMPARISON: Abdomen Pelvis W Contrast dated 07/25/2019; Abdomen Pelvis W Contrast dated 02/10/2017 ; CT ABD PELVIS W CONTRAST dated 08/08/2013; CT ABD PELVIS W CONTRAST dated 12/17/2008 TECHNIQUE: Biphasic CT imaging of the abdomen and pelvis was performed with 100 ml non-ionic IV cont rast. All CT scans are performed using dose optimization technique as appropriate and may include automated exposure control or mA/KV adjustment according to patient size. FINDINGS: The lung bases are clear. The liver, spleen, pancreas, adrenal glands and kidneys are within normal limits. No bowel obstruction, free air, free fluid or abscess. Prominent colonic diverticulosis is seen, grea test in the sigmoid colon region. Equivocal findings of subtle induration of the surrounding fat in t he sigmoid colon region seen. Appendectomy. No evidence of significant lymphadenopathy. No suspicious bony findings. IMPRESSION: Possible very early findings of acute left lower quadrant sigmoid diverticulitis. Otherw ise, no acute process identified.
--- NOTE | 2019-10-28 11:19 | ER ---
Nurse's Notes [facility] Name: Awa Tracy Age: 64 yrs Sex: Female : 1955 Arrival Date: 10/28/2019 Time: 09:47 Bed 7 Private MD: Baljeet Luevano F Diagnosis: Lower abdominal pain, unspecified Presentation: 10/27 09:56 Chief complaint: RLQ pain that radiates to right flank and right thigh x 5 days. On hb Cipro Day 4 and Flagyl Day 2. Coronavirus screen: Proceed with normal triage. Ebola Screen: No symptoms or risks identified at this time. Initial Sepsis Screen: Does the patient meet any 2 criteria? No. Patient's initial sepsis screen is negative. Does the patient have a suspected source of infection? No. Patient's initial sepsis screen is negative. Risk Assessment: Do you want to hurt yourself or someone else? Patient reports no desire to harm self or others. Onset of symptoms was October 23, 2019. 09:56 Method Of Arrival: Ambulatory hb 09:56 Acuity: NICHOL 3 hb Historical: - Allergies: 09:58 PENICILLINS; hb - Home Meds: 09:58 amlodipine oral [Active]; Coreg 6.25 mg Oral tab 1 tab 2 times per day [Active]; Livalo hb 2 mg Oral tab 1 tab once daily [Active]; - PMHx: 09:58 Hypertension; Hyperlipidemia; hb - PSHx: 09:58 Appendectomy; hb - Immunization history:: Adult Immunizations up to date. - Social history:: Smoking status: Patient denies any tobacco usage or history of. Screenin:10 Abuse screen: Denies threats or abuse. Denies injuries from another. Nutritional jl7 screening: No deficits noted. Tuberculosis screening: No symptoms or risk factors identified. Fall Risk IV access (20 points). Total Baumann Fall Scale indicates No Risk (0-24 pts). Assessment: 10:00 General: Appears in no apparent distress. uncomfortable, Behavior is calm, cooperative, jl7 appropriate for age. Pain: Complains of pain in right lower quadrant Pain radiates to right low back Pain currently is 8 out of 10 on a pain scale. at worst was 10 out of 10 on a pain scale. Quality of pain is described as sharp, Pain began x 4 days Is intermittent. Neuro: Level of Consciousness is awake, alert, obeys commands, Oriented to person, place, time, situation. Cardiovascular: Patient's skin is warm and dry. Respiratory: Airway is patent Respiratory effort is even, unlabored, Respiratory pattern is regular, symmetrical. GI: Abdomen is non-distended, Reports diarrhea, Patient currently denies nausea, vomiting. : Denies burning with urination. Derm: Skin is pink, warm \T\ dry. Musculoskeletal: ambulates with steady gate. 12:00 Reassessment: Discharge instructions given at this time. Pt voiced understanding of prescriptions. All questions answered at this time. Vital Signs: 09:56 BP 155 / 83; Pulse 77; Resp 16; Temp 97.9; Pulse Ox 98% ; Weight 70.31 kg; Height 5 ft. hb 4 in. (162.56 cm); Pain 10/10; 10:10 BP 131 / 73; Pulse 67; Resp 17; Pulse Ox 96% ; Pain 8/10; jl7 11:45 BP 141 / 78; Pulse 69; Resp 18; Temp 98.0(TE); Pulse Ox 96% on R/A; mh5 12:00 BP 144 / 78; Pulse 71; Resp 18; Pulse Ox 96% ; ah 09:56 Body Mass Index 26.61 (70.31 kg, 162.56 cm) hb ED Course: 09:47 Patient arrived in ED. mr 09:47 Baljeet Luevano MD is Private Physician. mr 09:52 Rebecca Singh, LAURA [facility]. kb 09:52 Hitesh Sagastume MD is Attending Physician. kb 09:58 Triage completed. hb 09:58 Arm band placed on. hb 10:01 Pasquale Lopez, EJ is Primary Nurse. jl7 10:10 Patient has correct armband on for positive identification. Placed in gown. Bed in low jl7 position. Call light in reach. Side rails up X2. Pulse ox on. NIBP on. Door closed. Noise minimized. Lights dimmed. Warm blanket given. Head of bed lowered. 10:15 Initial lab(s) drawn, by me, sent to lab. Urine collected: clean catch specimen, clear. jl7 Inserted saline lock: 20 gauge in right antecubital area, using aseptic technique. Blood collected. 10:59 CT Abd/Pelvis - IV Contrast Only In Process Unspecified. EDWV 11:18 Baljeet Luevano MD is Referral Physician. 12:00 No provider procedures requiring assistance completed. IV discontinued, intact, bleeding controlled, No redness/swelling at site. Pressure dressing applied. Administered Medications: 10:15 Drug: NS 0.9% 1000 ml Route: IV; Rate: 1000 ml; Site: right antecubital; jl7 10:16 Drug: Zofran (Ondansetron) 4 mg Route: IVP; Site: right antecubital; jl7 11:10 Follow up: Response: No adverse reaction 10:18 Drug: morphine 4 mg Route: IVP; Site: right antecubital; jl7 11:18 Follow up: Response: No adverse reaction Outcome: 11:18 Discharge ordered by MD. 11:55 Discharged to home ambulatory. 11:55 Condition: good 11:55 Discharge instructions given to patient, Instructed on discharge instructions, follow up and referral plans. medication usage, Demonstrated understanding of instructions, follow-up care, medications, Prescriptions given X 1. 12:10 Patient left the ED. Signatures: Dispatcher [employer] EDMS Rebecca Singh, MARINE OPERATIONS COORDINATOR-C MARINE OPERATIONS COORDINATOR-Ckb Valerio Toma gann Yue Johnson, RN EJ Francisca Haskins [facility] Pasquale Lopez RN RN jl7 Harris, Amy, EJ PAGAN
--- NOTE | 2019-10-28 11:19 | EDPHYS ---
Physician Documentation [facility] Name: Awa Tracy Age: 64 yrs Sex: Female : 1955 Arrival Date: 10/28/2019 Time: 09:47 Bed 7 Private MD: Baljeet Luevano F ED Physician Hitesh Sagastume HPI: 10/27 11:20 This 64 yrs old Female presents to ER via Ambulatory with complaints of Right kb Side pain. 11:20 The patient has not experienced similar symptoms in the past. The patient has not kb recently seen a physician. 11:21 The patient presents with abdominal pain right lower quadrant. Onset: The kb symptoms/episode began/occurred 5 day(s) ago. The symptoms radiate to right leg. Associated signs and symptoms: Pertinent positives: diarrhea, Pertinent negatives: nausea and vomiting, fever. The symptoms are described as constant. Modifying factors: The symptoms are alleviated by nothing, the symptoms are aggravated by movement. Severity of pain: At its worst the pain was moderate in the emergency department the pain is unchanged. Pt reports RLQ for 5 days with diarrhea. Denies fever. States she started Cipro that she had at home on Saturday and started Flagyl that Dr Luevano called in for her yesterday. Was told to come to the ER if pain didn't get better. Pt reports pain radiates to right low back and right thigh. Historical: - Allergies: 09:58 PENICILLINS; hb - Home Meds: 09:58 amlodipine oral [Active]; Coreg 6.25 mg Oral tab 1 tab 2 times per day [Active]; Livalo hb 2 mg Oral tab 1 tab once daily [Active]; - PMHx: 09:58 Hypertension; Hyperlipidemia; hb - PSHx: 09:58 Appendectomy; hb - Immunization history:: Adult Immunizations up to date. - Social history:: Smoking status: Patient denies any tobacco usage or history of. ROS: 11:19 Constitutional: Negative for fever, chills, and weight loss, Neck: Negative for injury, kb pain, and swelling, Cardiovascular: Negative for chest pain, palpitations, and edema, Respiratory: Negative for shortness of breath, cough, wheezing, and pleuritic chest pain, Back: Negative for injury and pain, : Negative for injury, bleeding, discharge, and swelling, MS/Extremity: Negative for injury and deformity, Skin: Negative for injury, rash, and discoloration, Neuro: Negative for headache, weakness, numbness, tingling, and seizure. 11:19 Abdomen/GI: Positive for abdominal pain, diarrhea, Negative for nausea, vomiting, constipation. Exam: 11:19 Constitutional: This is a well developed, well nourished patient who is awake, alert, kb and in no acute distress. Head/Face: Normocephalic, atraumatic. Chest/axilla: Normal chest wall appearance and motion. Nontender with no deformity. No lesions are appreciated. Cardiovascular: Regular rate and rhythm with a normal S1 and S2. No gallops, murmurs, or rubs. Normal PMI, no JVD. No pulse deficits. Respiratory: Lungs have equal breath sounds bilaterally, clear to auscultation and percussion. No rales, rhonchi or wheezes noted. No increased work of breathing, no retractions or nasal flaring. Back: No spinal tenderness. No costovertebral tenderness. Full range of motion. Skin: Warm, dry with normal turgor. Normal color with no rashes, no lesions, and no evidence of cellulitis. MS/ Extremity: Pulses equal, no cyanosis. Neurovascular intact. Full, normal range of motion. Neuro: Awake and alert, GCS 15, oriented to person, place, time, and situation. Cranial nerves II-XII grossly intact. Motor strength 5/5 in all extremities. Sensory grossly intact. Cerebellar exam normal. Normal gait. 11:19 Abdomen/GI: Inspection: abdomen appears normal, Bowel sounds: normal, in all quadrants, Palpation: soft, in all quadrants, moderate abdominal tenderness, in the right lower quadrant. Vital Signs: 09:56 BP 155 / 83; Pulse 77; Resp 16; Temp 97.9; Pulse Ox 98% ; Weight 70.31 kg; Height 5 ft. hb 4 in. (162.56 cm); Pain 10/10; 10:10 BP 131 / 73; Pulse 67; Resp 17; Pulse Ox 96% ; Pain 8/10; jl7 11:45 BP 141 / 78; Pulse 69; Resp 18; Temp 98.0(TE); Pulse Ox 96% on R/A; mh5 12:00 BP 144 / 78; Pulse 71; Resp 18; Pulse Ox 96% ; ah 09:56 Body Mass Index 26.61 (70.31 kg, 162.56 cm) hb MDM: 09:52 Patient medically screened. kb 11:17 Data reviewed: vital signs, nurses notes. Data interpreted: Pulse oximetry: on room air kb is 96 %. Interpretation: normal. Counseling: I had a detailed discussion with the patient and/or guardian regarding: the historical points, exam findings, and any diagnostic results supporting the discharge/admit diagnosis, lab results, radiology results, the need for outpatient follow up, a family practitioner, to return to the emergency department if symptoms worsen or persist or if there are any questions or concerns that arise at home. ED course: Pt educated to continue cipro and flagyl that was started yesterday for early diverticulitis on the left. . 10/27 09:57 Order name: Basic Metabolic Panel; Complete Time: 10:53 kb 10/27 09:57 Order name: CBC with Diff; Complete Time: 10:27 kb 10/27 09:57 Order name: Hepatic Function; Complete Time: 10:53 kb 10/27 09:57 Order name: Lipase; Complete Time: 10:53 kb 10/27 10:20 Order name: Urine Microscopic Only; Complete Time: 11:25 jl7 10/27 10:22 Order name: Urine Dipstick--Ancillary (enter results); Complete Time: 10:34 bd 10/27 09:57 Order name: IV Saline Lock; Complete Time: 10:21 kb 10/27 09:57 Order name: Labs collected and sent; Complete Time: 10:21 kb 10/27 09:57 Order name: CT Abd/Pelvis - IV Contrast Only; Complete Time: 11:10 kb 10/27 09:57 Order name: Urine Dipstick-Ancillary (obtain specimen); Complete Time: 10:20 kb Administered Medications: 10:15 Drug: NS 0.9% 1000 ml Route: IV; Rate: 1000 ml; Site: right antecubital; jl7 10:16 Drug: Zofran (Ondansetron) 4 mg Route: IVP; Site: right antecubital; jl7 11:10 Follow up: Response: No adverse reaction ah 10:18 Drug: morphine 4 mg Route: IVP; Site: right antecubital; jl7 11:18 Follow up: Response: No adverse reaction ah Disposition: 17:27 Co-signature as Attending Physician, Hitesh Sagastume MD I agree with the assessment and kdr plan of care. Disposition: 10/28/19 11:18 Discharged to Home. Impression: Lower abdominal pain, unspecified. - Condition is Stable. - Discharge Instructions: Abdominal Pain, Adult, [id number], Sciatica, [id number]. - Prescriptions for Cyclobenzaprine 10 mg Oral Tablet - take 1 tablet by ORAL route every 8 hours As needed; 21 tablet. - Medication Reconciliation Form, Thank You Letter, Antibiotic Education, Prescription Opioid Use form. - Follow up: Emergency Department; When: As needed; Reason: Worsening of condition. Follow up: Baljeet Luevano MD; When: 2 - 3 days; Reason: Recheck today's complaints, Continuance of care, Re-evaluation by your physician. Signatures: Dispatcher [employer] EDMS Rebecca Singh, DIE CUTTER APPRENTICE-C DIE CUTTER APPRENTICE-Ckb Hitesh Sagastume MD MD [facility] Yue Johnson RN RN Pasquale Lopez RN RN [facility] Ivana Galvan, RN RN Corrections: (The following items were deleted from the chart) 12:10 11:18 10/28/2019 11:18 Discharged to Home. Impression: Lower abdominal pain, ah unspecified. Condition is Stable. Forms are Medication Reconciliation Form, Thank You Letter, Antibiotic Education, Prescription Opioid Use. Follow up: Emergency Department; When: As needed; Reason: Worsening of condition. Follow up: Baljeet Luevano; When: 2 - 3 days; Reason: Recheck today's complaints, Continuance of care, Re-evaluation by your physician. kb
[2019-10-28 11:23] LABS: Urine Bacteria <20 /HPF (<20); Urine RBC <5 /HPF (NONE SEEN)
[2019-10-28 11:24] LABS: Urine Culture Reflex Order NOT NEEDED
[2019-10-28 12:18] VITALS: O2SAT 96
[2019-10-28 12:19] VITALS: TEMP 98
[2019-10-28 12:20] VITALS: BP 144/78
== END 2019-10-28 12:10 | disposition home or self-care (01) ==
LOC: ER 09:44
DX: R10.30 Lower abdominal pain, unspecified (principal); Z88.0 Allergy status to penicillin; I10 Essential (primary) hypertension; E78.5 Hyperlipidemia, unspecified
CPT/HCPCS: 85025; 80048; 36415; 80076; 83690; 74177; 96375; 96374; 99284; Q9967; J7030; J2405; 81003; 81015

== ENCOUNTER 2020-04-23 13:07 | Observation (INO) | payer OTHER ==
--- OUTSIDE RECORDS SUMMARY | 2020-04-23 13:09 | XMS REPORT | Clinical Summary ---
:1955 Author Organization [facility] Address [address] [place] [address] Care Team Providers Name Role Phone Briana Choe MD Primary Care Provider Allergies Active Allergy Reactions Severity Noted Date Comments Penicillins Rash Low 09/03/2012 Medications Medication Sig Dispensed Refills Start Date End Date Status melatonin-pyridoxine, Place under the 0 Active vit B6, (MELATONIN, tongue nightly. WITH B6,) 2.5-0.5 mg Subl co-enzyme Q-10 50 mg Take 100 mg by 0 Active capsule mouth daily. amLODIPine (NORVASC) 5 Take 1 tablet (5 90 tablet 1 11/08/2014 Active MG tabletIndications: mg total) by Hypertension mouth daily. calcium Take 1,000 mg by 0 Act dima carbonate-vitamin D2 mouth 2 (two) (CALCIUM-VITAMIN D) times daily. 500-125 mg-unit Tab RED YEAST RICE ORAL Take 600 mg by 0 Active mouth daily. pitavastatin (LIVALO) Take 2 mg by 90 tablet 1 11/03/2014 Active 2 mg Tab mouth daily. tabletIndications: Hyperlipidemia omega-3 acid ethyl Take 2 capsules 360 capsule 1 11/03/2014 Active esters (LOVAZA) 1 gram (2 g total) by capsule mouth 2 (two) times daily. carvedilol (COREG) Take 1 tablet 180 tablet 1 12/24/2014 Active 6.25 MG tablet (6.25 mg total) by mouth 2 (two) times daily with breakfast and dinner. traMADol (ULTRAM) 50 Take 50 mg by 0 Active mg tablet mouth every 6 (six) hours as needed for Pain. Active Problems Problem Noted Date Traumatic rotator cuff tear, right, initial encounter 02/20/2016 Impingement syndrome of right shoulder 02/20/2016 Biceps tendinitis of right shoulder 02/20/2016 SLAP lesion of right shoulder 02/20/2016 Arthritis of right acromioclavicular joint 02/20/2016 LLQ abdominal pain 02/03/2014 Neuropathy 02/03/2014 Diarrhea 02/03/2014 Fatigue 02/03/2014 Hair loss 02/03/2014 Multiple joint pain 02/03/2014 Family History Medical History Relation Name Comments Heart disease Brother Cirrhosis Brother Cancer Brother prostate Diabetes Brother Mental illness Father Alzheimer's Cancer Mother Pancreatic Diabetes Sister Lupus Sister Cancer Sister throat cancer Relation Name Status Comments Brother Brother Brother Alive Brother Daughter Alive Father Mother Sister 5 Alive Sister Sister Son 2 Alive Social History Tobacco Use Types Packs/Day Years Used Date Never Smoker Smokeless Tobacco: Never Used Alcohol Use Drinks/Week oz/Week Comments No Sex Assigned at Date Recorded Not on file Last Filed Vital Signs Not on file Plan of Treatment Not on file Implants Implanted Type Area Cosmetic Counselor Device Shelf Model / Identifier Expiration Serial / Date Lot Swvlok Peek Slf Pnch 4.75mm - Sn/A [place]/A Right: ARTHREX 10/28/2020 AR- [id number] / Implanted: Qty: 2 on 02/20/2016 by Chas Maravilla MD at [facility] rthrosco Shoulder N/A / py [id number] Fbrtape 2mm [id number] - Sn/A [place]/A Right: ARTHREX [id number] / Implanted: Qty: 1 on 02/20/2016 by Chas Maravilla MD at [facility] rthrosco Shoulder N/A / py [id number] Tigertape 2mm 7in Whi/Blk [id number] - Sn/A [place]/A Right: ARTHRE X 06/30/2017 [id number] / Implanted: Qty: 1 on 02/20/2016 by Chas Maravilla MD at [facility] rthrosco Shoulder N/A / py [id number] Results Not on fileafter 04/23/2019 Insurance Payer Benefit Plan / Subscriber ID Effective Dates Phone Addre ss Type Group AETNA - MGD AETNA HMO POS [id number] 2007-Present HMO/POS CARE QPOS
--- OUTSIDE RECORDS SUMMARY | 2020-04-23 13:09 | XMS REPORT | Clinical Summary ---
:1955 Author Organization [facility] Address [address] [place] [address] Care Team Providers Name Role Phone Asked, Pcp Primary Care Provider Unavailable Allergies Active Allergy Reactions Severity Noted Date Comments Grapefruit Extract 08/26/2012 Rash Penicillins Rash Low 09/03/2012 Medications Medication Sig Dispensed Refills Start Date End Date Status amLODIPine (NORVASC) 5 Take 5 mg by 0 11/08/2014 Active mg tablet mouth. pitavastatin calcium 0 02/03/2015 Active (LIVALO) 2 mg tablet carvedilol (COREG) 6.25 Take 6.25 mg by 0 12/24/2014 Active MG tablet mouth. calcium Take 1,000 mg by 0 Act dima carbonate-vitamin D3 mouth. 250-125 mg-unit tablet melatonin-pyridoxine, Place under the 0 Active vit B6, 2.5-0.5 mg tongue. tablet, sublingual omega-3 acid ethyl Take 2 g by 0 11/03/2014 Active esters (LOVAZA) 1 gram mouth. capsule co-enzyme Q-10 50 mg Take 100 mg by 0 Active capsule mouth. Active Problems Not on file Surgical History Surgery Date Site/Laterality Comments BACK SURGERY 07/01/2012 - 06/30/2013 SHOULDER ARTHROSCOPY 07/01/2015 - 06/30/2016 R sh oulder KNEE ARTHROSCOPY 07/01/2013 - 06/30/2014 R knee SPINE SURGERY Medical History Medical History Date Comments Arthritis Fibromyositis Hypertension Family History Medical History Relation Name Comments Osteoporosis Mother Francisca Osteoporosis Sister Nisha Osteoporosis Sister Rema Rheumatologic disease Sister Rema Rheumatologic disease Sister Mary Relation Name Status Comments Mother Francisca Sister Nisha Sister Rema Sister Mary Social History Tobacco Use Types Packs/Day Years Used Date Never Smoker Smokeless Tobacco: Never Used Alcohol Use Drinks/Week oz/Week Comments No Sex Assigned at Date Recorded Not on file Last Filed Vital Signs Not on file Plan of Treatment Health Maintenance Due Date Last Done Comments BREAST CANCER SCREENING 2003 COLONOSCOPY SCREENING 2003 SHINGLES VACCINES (#1) 2003 65+ PNEUMOCOCCAL VACCINE (1 of 1 - PPSV23) 2018 INFLUENZA VACCINE 01/30/2020 Results Not on fileafter 04/23/2019 Advance Directives For more information, please contact: [phone] Type Date Recorded 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
--- NOTE | 2020-04-23 13:53 | RAD REPORT ---
EXAM DESCRIPTION: RAD - Chest Single View - 04/23/2020 1:48 pm CLINICAL HISTORY: CHEST PAIN Chest pain. COMPARISON: Chest Single View dated 07/25/2019; Chest Pa And Lat (2 Views) dated 02/10/2017; CHEST PA AND LAT 2 VIEW dated 11/23/2011; CHEST SINGLE VIEW dated 03/03/2011 FINDINGS: Portable technique limits examination quality. The lungs are grossly clear. The heart is normal in size. No displaced fractures. IMPRESSION: No acute intrathoracic process suspected.
[2020-04-23] MEDS ORDERED: MAGNES/ALUMIN/SIMET 30ML UCUP ONE (14:15)
[2020-04-23] MEDS ORDERED: LIDOCAINE VISCOUS 2% SOLN 15 ML UDC ONE (14:15)
[2020-04-23 14:43] LABS: ALT/SGPT 21 U/L (12-78); AST/SGOT 17 U/L (15-37); Albumin 4.4 g/dL (3.4-5.0); Alkaline Phosphatase 107 U/L (45-117); BUN Blood Urea Nitrogen 14 mg/dL (7-18); Bicarbonate 25 mmol/L (21-32); Bilirubin Direct 0.1 mg/dL (0-0.2); Bilirubin Total 0.6 mg/dL (0.2-1.0); Glucose Level 84 mg/dL (74-106); Magnesium 2.5 mg/dL (1.8-2.4); NT PRO-BNP 31 pg/mL (<125); Potassium 3.7 mmol/L (3.5-5.1); Protein, Total 8.5 g/dL (6.4-8.2); Sodium Level 142 mmol/L (136-145); Troponin (Emerg Dept Use Only) < 0.02 ng/mL (0.0-0.045)
[2020-04-23 14:46] LABS: Absolute Lymphocytes (CBC) 1.7 K/uL (0.7-4.9); Basophils % 1.1 % (0-1.3); Hematocrit 41.1 % (36.0-45.0); Lymphocytes % 26.8 % (15.3-44.8); MPV 8.9 fL (7.6-11.3); Protime INR 0.93; RBC Red Blood Cell Count 4.88 M/uL (3.86-4.86)
--- NOTE | 2020-04-23 15:01 | EDPHYS ---
Physician Documentation [facility] Name: Awa Tracy Age: 64 yrs Sex: Female : 1955 Arrival Date: 04/23/2020 Time: 13:07 Bed 3 Private MD: ED Physician Donny Shin HPI: 04/23 14:00 This 64 yrs old Female presents to ER via Ambulatory with complaints of Chest rn Pain. 14:00 The patient or guardian reports chest pain that is located primarily in the anterior rn chest wall, left. 14:00 Onset: 5 day(s) ago. The pain radiates to Associated signs and symptoms: Pertinent rn positives: abdominal pain, Pertinent negatives: cough, diaphoresis, dizziness, lower extremity swelling, palpitations, syncope, vomiting. The chest pain is described as a pressure. Duration: The patient or guardian reports multiple episodes, that are intermittent. Modifying factors: The symptoms are alleviated by nothing. the symptoms are aggravated by nothing. Severity of pain: At its worst the pain was moderate in the emergency department the pain has improved. The patient has not experienced similar symptoms in the past. Reports left sided chest pain, radiates to left shoulder/neck/arm, assoc with mild sob, and epigastric abd pain. No fever. No diaphoresis. Reports neg stress test "a few years ago". . Historical: - Allergies: 13:15 PENICILLINS; ss - PMHx: 13:15 Hyperlipidemia; Hypertension; ss - PSHx: 13:15 Appendectomy; ss - Immunization history:: Adult Immunizations unknown. - Social history:: Smoking status: Patient denies any tobacco usage or history of. - Family history:: not pertinent. - Hospitalizations: : No recent hospitalization is reported. ROS: 14:00 Constitutional: Negative for fever, chills, and weight loss, Eyes: Negative for injury, rn pain, redness, and discharge, Neck: Negative for injury, pain, and swelling, Cardiovascular: Negative for palpitations, and edema, Respiratory: Negative for cough, wheezing, and pleuritic chest pain, Abdomen/GI: Negative for nausea, vomiting, diarrhea, and constipation, MS/Extremity: Negative for injury and deformity, Skin: Negative for injury, rash, and discoloration, Neuro: Negative for headache, weakness, numbness, tingling, and seizure. Exam: 14:00 Constitutional: This is a well developed, well nourished patient who is awake, alert, rn and in no acute distress. Head/Face: Normocephalic, atraumatic. Cardiovascular: Regular rate and rhythm. No pulse deficits. Respiratory: Speaking full sentences. No increased work of breathing, no retractions or nasal flaring. Abdomen/GI: soft, mild epigastric tenderness, no rebound Skin: Warm, dry with normal turgor. Normal color with no rashes, no lesions, and no evidence of cellulitis. MS/ Extremity: Pulses equal, no cyanosis. Neurovascular intact. Full, normal range of motion. Equal circumference. Neuro: Awake and alert, GCS 15, oriented to person, place, time, and situation. Cranial nerves II-XII grossly intact. Motor strength 5/5 in all extremities. Sensory grossly intact. 14:12 ECG was reviewed by the Attending Physician. rn Vital Signs: 13:17 BP 155 / 89; Pulse 71; Resp 18; Temp 97.5; Pulse Ox 99% on R/A; Weight 70.31 kg; Height ph 5 ft. 4 in. (162.56 cm); 14:00 BP 135 / 79; Pulse 69; Resp 16; Pulse Ox 98% on R/A; ph 15:00 BP 147 / 73; Pulse 76; Resp 16; Pulse Ox 99% on R/A; ph 16:07 BP 127 / 65; Pulse 66; Resp 18; Temp 97.4; Pulse Ox 99% on R/A; ph 13:17 Body Mass Index 26.61 (70.31 kg, 162.56 cm) ph MDM: 13:18 Patient medically screened. rn 14:57 Differential diagnosis: acute myocardial infarction, acute pericarditis, coronary rn artery disease chest wall pain, costochondritis, gastroesophageal reflux disease (GERD), pleurisy, pneumothorax. The patient was given aspirin in the Emergency Department. Data reviewed: vital signs, nurses notes, lab test result(s), EKG, radiologic studies, plain films, and as a result, I will admit patient. Counseling: I had a detailed discussion with the patient and/or guardian regarding: the historical points, exam findings, and any diagnostic results supporting the discharge/admit diagnosis, lab results, radiology results, the need for further work-up and treatment in the hospital. Response to treatment: the patient's symptoms have mildly improved after treatment, and as a result, I will admit patient. Admission orders: after a detailed discussion of the patient's condition and case, the admit orders are written by me. ED course: No acute findings on bloodwork or chest xray, not better with GI cocktail, will admit to Dr. Luevano for chest pain and cardiology eval. . 04/23 13:34 Order name: Basic Metabolic Panel; Complete Time: 14:48 rn 04/23 13:34 Order name: CBC with Diff; Complete Time: 14:48 rn 04/23 13:34 Order name: LFT's; Complete Time: 14:48 rn 04/23 13:34 Order name: Magnesium; Complete Time: 14:48 rn 04/23 13:34 Order name: NT PRO-BNP; Complete Time: 14:48 rn 04/23 13:34 Order name: PT-INR; Complete Time: 14:48 rn 04/23 13:34 Order name: Troponin (emerg Dept Use Only); Complete Time: 14:48 rn 04/23 13:34 Order name: XRAY Chest (1 view); Complete Time: 13:56 rn 04/23 13:34 Order name: EKG; Complete Time: 13:35 rn 04/23 13:34 Order name: Cardiac monitoring; Complete Time: 14:00 rn 04/23 13:34 Order name: EKG - Nurse/Tech; Complete Time: 14:00 rn 04/23 13:34 Order name: Labs collected and sent; Complete Time: 14:18 rn 04/23 13:34 Order name: O2 Per Protocol; Complete Time: 14:00 rn 04/23 13:34 Order name: O2 Sat Monitoring; Complete Time: 14:00 rn EC:12 Rate is 69 beats/min. Rhythm is regular. QRS [place] is Normal. PA interval is normal. QRS rn interval is normal. QT interval is normal. No Q waves. T waves are Normal. No ST changes noted. Clinical impression: NSR w/ Non-specific ST/T Changes. Interpreted by me. Reviewed by me. Administered Medications: 14:10 Drug: GI Cocktail without - (Maalox Suspension 30 ml, Lidocaine Liquid 2 % 15 ph ml) Route: PO; 14:22 Follow up: Response: No adverse reaction ph 15:00 Drug: [place] 10 mg-325 mg 1 tabs Route: PO; ph 16:12 Follow up: Response: No adverse reaction ph 15:15 Drug: Aspirin Chewable Tablet 324 mg Route: PO; ph 16:12 Follow up: Response: No adverse reaction ph Disposition: 04/23/20 15:00 Hospitalization ordered by Baljeet Luevano for Observation. Preliminary diagnosis is Chest pain, unspecified. - Bed requested for Telemetry/MedSurg (observation). - Status is Observation. sv - Condition is Stable. - Problem is new. - Symptoms have improved. Signatures: Dispatcher [employer] EDMS Rolanda Goodwin RN RN Donny Cabezas MD MD rn Smirch, Shelby, RN RN ss Hall, Patricia, RN RN ph Botello, Elizabeth eb Corrections: (The following items were deleted from the chart) 16:04 15:00 Hospitalization Ordered by Baljeet Luevano MD for Observation. Preliminary eb diagnosis is Chest pain, unspecified. Bed requested for Telemetry/MedSurg (observation). Status is Observation. Condition is Stable. Problem is new. Symptoms have improved. rn 16:58 16:04 04/23/2020 15:00 Hospitalization Ordered by Baljeet Luevano MD for Observation. sv Preliminary diagnosis is Chest pain, unspecified. Bed requested for Telemetry/MedSurg (observation). Status is Observation. Condition is Stable. Problem is new. Symptoms have improved. eb
--- NOTE | 2020-04-23 15:01 | ER ---
Nurse's Notes [facility] Name: Awa Tracy Age: 64 yrs Sex: Female : 1955 Arrival Date: 04/23/2020 Time: 13:07 Bed 3 Private MD: Diagnosis: Chest pain, unspecified Presentation: 04/23 13:14 Chief complaint: Patient states: Intermittent L sided CP that began 2 days ago. ss Coronavirus screen: Client denies travel out of the [place] in the last 14 days. Ebola Screen: Patient denies exposure to infectious person. Patient denies travel to an Ebola-affected area in the 21 days before illness onset. Initial Sepsis Screen: Does the patient have a suspected source of infection? No. Patient's initial sepsis screen is negative. Onset of symptoms was April 21, 2020. 13:14 Method Of Arrival: Ambulatory ss 13:14 Acuity: NICHOL 3 ss 13:20 Initial Sepsis Screen: Does the patient meet any 2 criteria? No. Patient's initial ph sepsis screen is negative. Risk Assessment: Do you want to hurt yourself or someone else? Patient reports no desire to harm self or others. Historical: - Allergies: 13:15 PENICILLINS; ss - PMHx: 13:15 Hyperlipidemia; Hypertension; ss - PSHx: 13:15 Appendectomy; ss - Immunization history:: Adult Immunizations unknown. - Social history:: Smoking status: Patient denies any tobacco usage or history of. - Family history:: not pertinent. - Hospitalizations: : No recent hospitalization is reported. Screenin:19 Abuse screen: Denies threats or abuse. Denies injuries from another. Nutritional ph screening: No deficits noted. Tuberculosis screening: No symptoms or risk factors identified. Fall Risk None identified. Assessment: 13:21 General: Appears in no apparent distress. comfortable, well groomed, Behavior is calm, ph cooperative, appropriate for age, Denies fever, feeling ill. Pain: Complains of pain in anterior aspect of left upper chest and mid-sternal area Pain radiates to L shoulder and back Pain began 2-3 days ago. Neuro: Level of Consciousness is awake, alert, obeys commands, Oriented to person, place, time, situation. Cardiovascular: Reports chest pain, Denies nausea, shortness of breath, vomiting, Capillary refill < 3 seconds in bilateral fingers Patient's skin is warm and dry. Chest pain quality is sharp, is located in left anterior epigastric area substernal area radiates to left back scapula. Respiratory: Airway is patent Respiratory effort is even, unlabored, Respiratory pattern is regular, symmetrical, Denies shortness of breath. GI: Reports indigestion, Patient currently denies abdominal pain, nausea, vomiting. Derm: Skin is intact, is healthy with good turgor, Skin is pink, warm \T\ dry. 14:30 Reassessment: Patient appears in no apparent distress at this time. Patient and/or ph family updated on plan of care and expected duration. Pain level reassessed. Patient is alert, oriented x 3, equal unlabored respirations, skin warm/dry/pink. 15:30 Reassessment: Patient appears in no apparent distress at this time. Patient and/or ph family updated on plan of care and expected duration. Pain level reassessed. Patient is alert, oriented x 3, equal unlabored respirations, skin warm/dry/pink. Vital Signs: 13:17 BP 155 / 89; Pulse 71; Resp 18; Temp 97.5; Pulse Ox 99% on R/A; Weight 70.31 kg; Height ph 5 ft. 4 in. (162.56 cm); 14:00 BP 135 / 79; Pulse 69; Resp 16; Pulse Ox 98% on R/A; ph 15:00 BP 147 / 73; Pulse 76; Resp 16; Pulse Ox 99% on R/A; ph 16:07 BP 127 / 65; Pulse 66; Resp 18; Temp 97.4; Pulse Ox 99% on R/A; ph 13:17 Body Mass Index 26.61 (70.31 kg, 162.56 cm) ph ED Course: 13:07 Patient arrived in ED. ds1 13:14 Triage completed. ss 13:15 EKG done, by ED staff, reviewed by Donny Shin MD. sv 13:16 Maura Llanes, EJ is Primary Nurse. ph 13:18 Donny Shin MD is Attending Physician. rn 13:19 Arm band placed on. ph 13:19 Patient has correct armband on for positive identification. Placed in gown. Bed in low ph position. Call light in reach. Side rails up X2. electronic device monitor on. Pulse ox on. NIBP on. Door closed. Noise minimized. Warm blanket given. 13:21 Patient maintains SpO2 saturation greater than 95% on room air. ph 13:48 XRAY Chest (1 view) In Process Unspecified. EDMS 13:59 Missed attempt(s): 22 gauge in right antecubital area. Bleeding controlled, band aid ph applied, catheter tip intact. Missed attempt(s): 22 gauge in left antecubital area. Bleeding controlled, band aid applied, catheter tip intact. Missed attempt(s): 22 gauge in left forearm. Bleeding controlled, band aid applied, catheter tip intact. 14:15 Initial lab(s) drawn, by me, sent to lab. Missed attempt(s): 22 gauge in left forearm. dh3 Bleeding controlled, band aid applied, catheter tip intact. 15:00 Baljeet Luevano MD is Hospitalizing Provider. rn 15:10 Missed attempt(s): 22 gauge in right forearm. Bleeding controlled, band aid applied, sv catheter tip intact. 15:15 Inserted saline lock: 24 gauge in right hand, using aseptic technique. Flushed right sv hand with 2 ml normal saline. 16:11 No provider procedures requiring assistance completed. Patient admitted, IV remains in ph place. Administered Medications: 14:10 Drug: GI Cocktail without - (Maalox Suspension 30 ml, Lidocaine Liquid 2 % 15 ph ml) Route: PO; 14:22 Follow up: Response: No adverse reaction ph 15:00 Drug: [place] 10 mg-325 mg 1 tabs Route: PO; ph 16:12 Follow up: Response: No adverse reaction ph 15:15 Drug: Aspirin Chewable Tablet 324 mg Route: PO; ph 16:12 Follow up: Response: No adverse reaction ph Outcome: 15:00 Decision to Hospitalize by Provider. rn 16:11 Admitted to Tele accompanied by tech, via wheelchair, room 215, with chart, Report ph called to Ivana PAGAN 16:11 Condition: stable 16:11 Instructed on the need for admit. 16:58 Patient left the ED. sv Signatures: Dispatcher [employer] EDRolanda Ravi, Sofia Holman RN ds1 Donny Shin MD MD rn Smirch, Shelby, RN RN ss Hall, Patricia, RN RN Monique Tejada 3
[2020-04-23] MEDS ORDERED: HYDROCODONE/APAP 10/325 TAB ONE (15:11)
[2020-04-23] MEDS ORDERED: ASPIRIN 81 MG CHEWABLE TABLET ONE (16:25)
[2020-04-23 16:55] VITALS: BMI 27.4
[2020-04-23] MEDS: MORPHINE 4 MG/ML SYR IV PRN (20:08)
[2020-04-23] MEDS: ENOXAPARIN 40 MG/0.4 ML SQ SCH (20:09)
[2020-04-23] MEDS: ONDANSETRON 4 MG/2 ML VIAL IV PRN (20:09)
[2020-04-23] MEDS ORDERED: PITAVASTATIN CALCIUM PO SCH (21:00)
[2020-04-23 21:58] VITALS: O2SAT 94
[2020-04-24] MEDS: MORPHINE 4 MG/ML SYR IV PRN (03:15)
[2020-04-24] MEDS: ONDANSETRON 4 MG/2 ML VIAL IV PRN ×2 (03:16→09:01)
[2020-04-24 05:50] LABS: Basophils % 0.8 % (0-1.3); Hematocrit 37.9 % (36.0-45.0); Lymphocytes % 26.9 % (15.3-44.8); MPV 8.9 fL (7.6-11.3); RBC Red Blood Cell Count 4.46 M/uL (3.86-4.86)
[2020-04-24 06:00] LABS: Potassium 3.7 mmol/L (3.5-5.1)
[2020-04-24] MEDS ORDERED: carvediloL 12.5 MG TAB PO SCH (09:00)
[2020-04-24] MEDS ORDERED: carvediloL 6.25 MG TAB PO SCH (09:00)
[2020-04-24] MEDS ORDERED: ASPIRIN EC 81 MG TAB PO SCH (09:00)
[2020-04-24] MEDS ORDERED: AMLODIPINE 2.5 MG TAB PO SCH (09:00)
[2020-04-24] MEDS: ENOXAPARIN 40 MG/0.4 ML SQ SCH (09:03)
[2020-04-24] MEDS ORDERED: PNEUMOCOCCAL VACCINE 0.5 ML IMVAC ONE (10:00)
[2020-04-24] MEDS ORDERED: INFLUENZA VACCINE (for 3y+) 0.5 ML DOSE IMVAC ONE (10:00)
--- NOTE | 2020-04-24 11:16 | CON ---
Date of Consultation: 04/24/2020 Reason For Consultation: Chest pain. History Of Present Illness: Ms. Tracy is a 64-year-old [place] woman, who came in with hyp ertension, history of dyslipidemia, and she has a positive family history of heart disease. Denies t obacco use or diabetes. She came in hypertensive, dizzy, nauseated, chest burning that has been cesario g on for about 4 days, but yet her EKG, troponin and CPK and MB as well as x-ray were negative. She denied PND, orthopnea, pedal edema, palpitations, or syncope. Denied any fever or chills. She denie d any worsening of her symptoms with exertion. Her symptoms are at rest. Allergies: SHE IS ALLERGIC TO PENICILLIN. Review of Systems: Negative. Social History: Negative. Family History: Positive for heart disease. Medications: At home include Livalo, Coreg, and Norvasc that has been recently increased by Dr. Hong mann. Physical Examination: Vital Signs: Stable. She was afebrile. HEENT: Negative. Neck: Supple with no bruit. Chest: Clear. Cardiac: Revealed a regular rhythm and rate. No murmurs, gallops, or rubs. Abdomen: Benign. Extremities: Revealed no clubbing, cyanosis, or edema. Diagnostic Data: All normal. Impression And Plan: Atypical chest pain. I think this most likely related to gastroesophageal refl ux disease and maybe hypertension. Her symptoms lasted for 3 to 4 days, but yet her EKG is normal, h er chest x-ray is normal, and her troponin is negative. I am comfortable with her going home on her home medications plus a proton pump inhibitor. I think we should make an arrangement for her to have an echocardiogram and a stress test as an outpatient if it is okay with Dr. Luevano. She does have multiple cardiac risk factors including hypertension and dyslipidemia, both of which are controlled. RADHA/CARLOZ Voice ID: [id number] Report ID: [id number]
--- NOTE | 2020-04-24 12:25 | SS ---
History Of Present Illness: A 64-year-old female presented to the emergency room with a complaint of chest pain in the form of discomfort and ache in the anterior chest area, more to the left and the u pper chest area. The patient had no palpitation or dizziness. No nausea, no vomiting, and voiced no other complaints. Review of Systems: Cardiovascular: No palpitation, no dizziness. Respiratory: No complaint. Gastrointestinal: No complaints. Genitourinary: No complaints. Neurological: No complaints Skeletomuscular: No complaints. Past Medical History: 1.Hypertension. 2.Hyperlipidemia. 3.Gastroesophageal reflux disease. 4.Restless legs syndrome. 5.Osteoarthritis, multiple joints. Social History: No smoking, alcohol, or drug abuse history. Family History: Noncontributing. Medications: Amlodipine 2.5 mg p.o. daily, carvedilol 6.25 mg p.o. daily, atorvastatin 4 mg p.o. rosana ly, and calcium and vitamin D supplement. Allergies: PENICILLIN. Physical Examination: Vital Signs: Blood pressure 138/67, pulse 60, temperature 96.9. Heart: Regular rate and rhythm. Chest: Clear to auscultation. No rub. Chest wall, no tenderness. Abdomen: Soft, nontender. No hepatosplenomegaly. Bowel sounds are normoactive. Extremities: No edema. No cyanosis. Peripheral pulses are felt. Neurological: Alert, oriented, nonfocal, grossly intact. Laboratory Data: Chest x-ray, no acute pathology. CBC, nonrevealing. Chemistry, troponin less than 0.02. The rest is nonrevealing. Assessment/plan: Atypical chest pain in the anterior upper chest area in a patient with increased ri sk for coronary syndrome because of her hypertension, hyperlipidemia, being admitted for serial cardi ac enzymes, put her on Lovenox and aspirin. We went ahead and ask Cardiology to see her. Dr. Willett i has seen the patient and he thought the patient has no acute coronary syndrome or other Diane's m anifestation or her gastroesophageal reflux disease. The patient to be discharged on H2 blockers and to follow up with Cardiology and follow up with me. Resume the rest of her home medications. Her l ab had been followed the next morning and basically was nonrevealing. Look orders for details. MFS/MODL Voice ID: [id number] Report ID: [id number]
[2020-04-24 13:20] VITALS: BP 118/61; TEMP 96.8
[2020-04-24] MEDS ORDERED: ATORVASTATIN 20 MG TAB PO SCH (21:00)
--- NOTE | 2020-04-26 10:11 | EKG ---
Test Date: 2020-04-23 Test Time: 13:15:31 Branch Maker: DOROTHY MEASUREMENT RESULTS: Intervals: Rate: 69 CA: 188 QRSD: 90 QT: 394 QTc: 422 [place]: P: -2 CA: 188 QRS: -12 T: -2 INTERPRETIVE STATEMENTS: Normal sinus rhythm Nonspecific T wave abnormality Abnormal ECG Compared to ECG 07/25/2019 12:13:04 T-wave abnormality now present Sinus tachycardia no longer present Left ventricular hypertrophy no longer present ST (T wave) deviation no longer present Possible ischemia no longer present Electronically Signed On 04-26-20 10:07:05 CDT by Jake Atkinson
== END 2020-04-24 13:20 | disposition home or self-care (01) ==
LOC: ER 13:07 → ERHOLD 15:03 → 2ND 16:15
PROVIDERS: ADMIT Internal Medicine; ATTEND Internal Medicine
DX: R07.89 Other chest pain (principal); I10 Essential (primary) hypertension; E78.5 Hyperlipidemia, unspecified; K21.9 Gastro-esophageal reflux disease without esophagitis; Z82.49 Family history of ischemic heart disease and other diseases of the circulatory system
CPT/HCPCS: 93005; 85025 ×2; 80048 ×2; 36415; 83735; 85610; 80076; 84484 ×3; 83880; 71045; 90471 ×2; 90732; 99285; U0002; Q2035; J1650 ×2; J2405 ×3; G0378 ×3

== ENCOUNTER 2021-06-20 09:53 | Emergency (ER) | payer OTHER ==
[2021-06-20 11:43] LABS: SARS-COV-2 RT PCR POSITIVE (NEGATIVE)
--- NOTE | 2021-06-20 11:57 | EDPHYS ---
Physician Documentation [facility] Name: Awa Tracy Age: 65 yrs Sex: Female : 1955 Arrival Date: 06/20/2021 Time: 09:56 Bed 11 Private MD: Baljeet Luevano F ED Physician Otoniel Martinez HPI: 06/20 10:41 This 65 yrs old Female presents to ER via Ambulatory with complaints of r/o rafy covid. 10:41 The patient or guardian reports airway noise, cough, described as mild. Onset: The rafy symptoms/episode began/occurred 3 day(s) ago. Modifying factors: The symptoms are alleviated by nothing. the symptoms are aggravated by nothing. uri, fever and chills, covid exposure. Associated signs and symptoms: The patient has no apparent associated signs or symptoms. The patient reports fever, that was measured at 101 degrees Fahrenheit. Modifying factors: The patient has had contact with sick friend. Severity of symptoms: At their worst the symptoms were mild in the emergency department the symptoms are unchanged. Associated signs and symptoms: Pertinent positives: arthralgias, chills, cough. Historical: - Allergies: 10:08 PENICILLINS; ap3 - Home Meds: 10:08 amlodipine oral [Active]; Coreg 6.25 mg Oral tab 1 tab 2 times per day [Active]; Livalo ap3 2 mg Oral tab 1 tab once daily [Active]; - PMHx: 10:08 Hyperlipidemia; Hypertension; ap3 - Immunization history:: Client reports receiving the 2nd dose of the Covid vaccine, and booster. - Social history:: Smoking status: Patient denies any tobacco usage or history of. - Family history:: not pertinent. ROS: 10:41 Constitutional: Negative for fever, chills, and weight loss, Eyes: Negative for injury, rafy pain, redness, and discharge, ENT: Negative for injury, pain, and discharge, Neck: Negative for injury, pain, and swelling, Cardiovascular: Negative for chest pain, palpitations, and edema, Abdomen/GI: Negative for abdominal pain, nausea, vomiting, diarrhea, and constipation, Back: Negative for injury and pain, : Negative for injury, bleeding, discharge, and swelling, MS/Extremity: Negative for injury and deformity, Skin: Negative for injury, rash, and discoloration, Neuro: Negative for headache, weakness, numbness, tingling, and seizure, Psych: Negative for depression, anxiety, suicide ideation, homicidal ideation, and hallucinations, Allergy/Immunology: Negative for hives, rash, and allergies, Endocrine: Negative for neck swelling, polydipsia, polyuria, polyphagia, and marked weight changes, Hematologic/Lymphatic: Negative for swollen nodes, abnormal bleeding, and unusual bruising. 10:41 Respiratory: Positive for cough, with no reported sputum. Exam: 10:41 Constitutional: This is a well developed, well nourished patient who is awake, alert, rafy and in no acute distress. Head/Face: Normocephalic, atraumatic. Eyes: Pupils equal round and reactive to light, extra-ocular motions intact. Lids and lashes normal. Conjunctiva and sclera are non-icteric and not injected. Cornea within normal limits. Periorbital areas with no swelling, redness, or edema. ENT: Nares patent. No nasal discharge, no septal abnormalities noted. Tympanic membranes are normal and external auditory canals are clear. Oropharynx with no redness, swelling, or masses, exudates, or evidence of obstruction, uvula midline. Mucous membranes moist. Neck: Trachea midline, no thyromegaly or masses palpated, and no cervical lymphadenopathy. Supple, full range of motion without nuchal rigidity, or vertebral point tenderness. No Meningismus. Chest/axilla: Normal chest wall appearance and motion. Nontender with no deformity. No lesions are appreciated. Cardiovascular: Regular rate and rhythm with a normal S1 and S2. No gallops, murmurs, or rubs. Normal PMI, no JVD. No pulse deficits. Respiratory: Lungs have equal breath sounds bilaterally, clear to auscultation and percussion. No rales, rhonchi or wheezes noted. No increased work of breathing, no retractions or nasal flaring. Abdomen/GI: Soft, non-tender, with normal bowel sounds. No distension or tympany. No guarding or rebound. No evidence of tenderness throughout. Back: No spinal tenderness. No costovertebral tenderness. Full range of motion. Female : Normal external genitalia. Skin: Warm, dry with normal turgor. Normal color with no rashes, no lesions, and no evidence of cellulitis. MS/ Extremity: Pulses equal, no cyanosis. Neurovascular intact. Full, normal range of motion. Neuro: Awake and alert, GCS 15, oriented to person, place, time, and situation. Cranial nerves II-XII grossly intact. Motor strength 5/5 in all extremities. Sensory grossly intact. Cerebellar exam normal. Normal gait. Psych: Awake, alert, with orientation to person, place and time. Behavior, mood, and affect are within normal limits. 10:41 Musculoskeletal/extremity: DVT Exam: No signs of deep vein thrombosis. no pain, no swelling, no tenderness, negative Homans' sign noted on exam, no appreciated bluish discoloration, no erythema, no increased warmth. Vital Signs: 10:06 BP 125 / 78; Pulse 64; Resp 18; Temp 98.6(TE); Pulse Ox 100% ; Weight 70.31 kg; Height ap3 5 ft. 4 in. (162.56 cm); 12:28 BP 129 / 80; Pulse 66; Resp 18; Pulse Ox 100% on R/A; ww 10:06 Body Mass Index 26.61 (70.31 kg, 162.56 cm) ap3 [place] Coma Score: 12:28 Eye Response: spontaneous(4). Verbal Response: oriented(5). Motor Response: obeys ww commands(6). Total: 15. MDM: 10:04 Patient medically screened. rafy 10:46 Differential diagnosis: bronchitis, flu, URI, uri, covid viral Infection, bacterial rafy infection, URI, bronchitis. Antibiotic administration: Not indicated. Differential Diagnosis flu. Data reviewed: vital signs, nurses notes, lab test result(s). Data interpreted: case monitor: rate is 64 beats/min, rhythm is regular, Pulse oximetry: on room air is 100 %. Counseling: I had a detailed discussion with the patient and/or guardian regarding: the historical points, exam findings, and any diagnostic results supporting the discharge/admit diagnosis, lab results. 06/20 10:11 Order name: COVID-19/FLU A+B (Document "Date of Onset" if Symptomatic) [email or web address] Administered Medications: 12:21 Not Given (Duplicate Order): Casirivimab-Imdevimab Dose Pack 120 mg/mL-120 mg/mL (EUA) rafy 1 vials IV at per protocol once; infuse 1,200 mg CASIRIVIMAB and 1,200 mg IMDEVIMAB (2,400 mg total dose) together as a SINGLE infusion per protocol 12:27 Drug: Zithromax (azithromycin) 500 mg Route: PO; ww 12:28 Drug: Pepcid (famotidine) 40 mg Route: PO; ww 12:28 Drug: Aspirin Chewable Tablet 324 mg Route: PO; ww Disposition Summary: 06/20/21 11:56 Discharge Ordered Location: Home [facility] Problem: new [facility] Symptoms: have improved [facility] Condition: Stable [facility] Diagnosis - Acute upper respiratory infection, unspecified rafy - Coronavirus infection, unspecified rafy Followup: [facility] - With: - When: 2 - 3 days - Reason: Recheck today's complaints, Continuance of care, Re-evaluation by your physician Discharge Instructions: - Discharge Summary Sheet [facility] - Upper Respiratory Infection, Adult [facility] - Cool Mist Vaporizer rafy - Upper Respiratory Infection, Adult, Riub-ag-Yffo [facility] - Cough, Adult [facility] - Aspirin and Your Heart [facility] - COVID-19 [facility] - COVID-19 Frequently Asked Questions [place] [id number] Things You Can Do to Manage Your COVID-19 Symptoms at Home - [facility] - COVID-19: Quarantine vs. Isolation - [facility] Forms: - Medication Reconciliation Form [facility] - Thank You Letter [facility] - Antibiotic Education [facility] - Prescription Opioid Use [facility] Prescriptions: - albuterol sulfate 90 mcg/actuation Inhalation HFA aerosol inhaler - inhale 2 puff by INHALATION route every 6 hours; 1 Pump; Refills: 0, Product [facility] Selection Permitted - ivermectin 3 mg Oral tablet - take 4 tablet by ORAL route once daily take 12 mg daily on days 1, 3 and 5; 12 rafy tablet; Refills: 0, Product Selection Permitted - Pepcid 20 mg Oral Tablet - take 1 tablet by ORAL route every 12 hours for 30 days; 60 tablet; Refills: 0, [facility] Product Selection Permitted - Singulair 10 mg Oral Tablet - take 1 tablet by ORAL route At bedtime; 30 tablet; Refills: 0, Product [facility] Selection Permitted - Zithromax 500 mg Oral Tablet - take 1 tablet by ORAL route once daily for 4 days; 4 tablet; Refills: 0, [facility] Product Selection Permitted Signatures: Dispatcher [employer] Otoniel Peralta MD MD cha Prokisch, Amanda, RN RN ap3 Bernice Allen RN RN ww Corrections: (The following items were deleted from the chart) 12:27 11:56 IV Saline Lock - Large Bore ordered. [facility]
--- NOTE | 2021-06-20 11:57 | ER ---
Nurse's Notes [facility] Name: Awa Tracy Age: 65 yrs Sex: Female : 1955 Arrival Date: 06/20/2021 Time: 09:56 Bed 11 Private MD: Baljeet Luevano F Diagnosis: Acute upper respiratory infection, unspecified;Coronavirus infection, unspecified Presentation: 06/20 10:06 Chief complaint: Patient states: she hasn't been feeling well for 2-3 days. Patient ap3 reports nausea, fatigue and congestion. Coronavirus screen: chills, cough unrelated to allergies, fatigue, fever, Client presents with at least one sign or symptom that may indicate coronavirus-19. Standard/surgical mask placed on the client. Provider contacted for isolation considerations. Ebola Screen: No symptoms or risks identified at this time. Initial Sepsis Screen: Does the patient meet any 2 criteria? No. Patient's initial sepsis screen is negative. Does the patient have a suspected source of infection? No. Patient's initial sepsis screen is negative. Risk Assessment: Do you want to hurt yourself or someone else? Patient reports no desire to harm self or others. Onset of symptoms was June 16, 2021. 10:06 Method Of Arrival: Ambulatory ap3 10:06 Acuity: NICHOL 4 ap3 Triage Assessment: 10:09 General: Appears in no apparent distress. Behavior is calm, cooperative. General: ap3 Reports chills for fever for fatigue for. Pain: Complains of pain in generalized body aches. Neuro: Level of Consciousness is awake, alert, obeys commands, Oriented to person, place, time, situation, Appropriate for age. Respiratory: Airway is patent Respiratory effort is even, unlabored, Respiratory pattern is regular, symmetrical. Historical: - Allergies: 10:08 PENICILLINS; ap3 - Home Meds: 10:08 amlodipine oral [Active]; Coreg 6.25 mg Oral tab 1 tab 2 times per day [Active]; Livalo ap3 2 mg Oral tab 1 tab once daily [Active]; - PMHx: 10:08 Hyperlipidemia; Hypertension; ap3 - Immunization history:: Client reports receiving the 2nd dose of the Covid vaccine, and booster. - Social history:: Smoking status: Patient denies any tobacco usage or history of. - Family history:: not pertinent. Screenin:09 Abuse screen: Denies threats or abuse. Nutritional screening: No deficits noted. ap3 Tuberculosis screening: No symptoms or risk factors identified. Fall Risk None identified. Assessment: 10:27 General: Appears comfortable, well groomed, well developed, well nourished, Behavior is ww calm, cooperative, appropriate for age. Neuro: Level of Consciousness is awake, alert, obeys commands, Oriented to person, place, time, situation, Appropriate for age Speech is normal. Cardiovascular: Capillary refill < 3 seconds. Respiratory: Airway is patent Respiratory effort is even, unlabored, Respiratory pattern is regular, symmetrical. GI: No deficits noted. Reports nausea. : No deficits noted. No signs and/or symptoms were reported regarding the genitourinary system. EENT: Reports nasal congestion. Derm: No deficits noted. No signs and/or symptoms reported regarding the dermatologic system. Skin is healthy with good turgor, Skin is pink, warm \T\ dry. Musculoskeletal: No deficits noted. No signs and/or symptoms reported regarding the musculoskeletal system. 11:30 Reassessment: Patient appears in no apparent distress at this time. No changes from ww previously documented assessment. Patient and/or family updated on plan of care and expected duration. Pain level reassessed. 12:28 Reassessment: Patient appears in no apparent distress at this time. No changes from ww previously documented assessment. Patient and/or family updated on plan of care and expected duration. Pain level reassessed. patient refused Regeron. MD notified. . Vital Signs: 10:06 BP 125 / 78; Pulse 64; Resp 18; Temp 98.6(TE); Pulse Ox 100% ; Weight 70.31 kg; Height ap3 5 ft. 4 in. (162.56 cm); 12:28 BP 129 / 80; Pulse 66; Resp 18; Pulse Ox 100% on R/A; ww 10:06 Body Mass Index 26.61 (70.31 kg, 162.56 cm) ap3 [place] Coma Score: 12:28 Eye Response: spontaneous(4). Verbal Response: oriented(5). Motor Response: obeys ww commands(6). Total: 15. ED Course: 09:56 Patient arrived in ED. am2 09:56 Baljeet Luevano MD is Private Physician. am2 10:04 Otoniel Martinez MD is Attending Physician. rafy 10:08 Triage completed. ap3 10:09 Arm band placed on left wrist. ap3 10:15 Bernice Allen, RN is Primary Nurse. ww 10:27 Patient has correct armband on for positive identification. Bed in low position. Call ww light in reach. 11:56 Baljeet Luevano MD is Referral Physician. rafy 12:32 No provider procedures requiring assistance completed. Patient did not have IV access ww during this emergency room visit. Administered Medications: 12:21 Not Given (Duplicate Order): Casirivimab-Imdevimab Dose Pack 120 mg/mL-120 mg/mL (EUA) rfay 1 vials IV at per protocol once; infuse 1,200 mg CASIRIVIMAB and 1,200 mg IMDEVIMAB (2,400 mg total dose) together as a SINGLE infusion per protocol 12:27 Drug: Zithromax (azithromycin) 500 mg Route: PO; ww 12:28 Drug: Pepcid (famotidine) 40 mg Route: PO; ww 12:28 Drug: Aspirin Chewable Tablet 324 mg Route: PO; ww Outcome: 11:56 Discharge ordered by . rafy 12:32 Discharged to home ambulatory. ww 12:32 Condition: stable 12:32 Discharge instructions given to patient, Instructed on discharge instructions, follow up and referral plans. medication usage, safety practices, Demonstrated understanding of instructions, follow-up care, medications, Prescriptions given X 5 12:33 Patient left the ED. ww Signatures: Otoniel Martinez MD MD cha Moreno, Amanda am2 Mesha Negron RN RN ap3 Bernice Allen RN RN ww
[2021-06-20] MEDS ORDERED: ASPIRIN 81 MG CHEWABLE TABLET ONE (12:07)
[2021-06-20] MEDS ORDERED: AZITHROMYCIN 250 MG TAB ONE (12:07)
[2021-06-20] MEDS ORDERED: FAMOTIDINE 20 MG TAB ONE (12:08)
[2021-06-20] MEDS ORDERED: CASIRIVIMAB/IMDEVIMAB 10 ML VIAL ONE (12:09)
[2021-06-20] MEDS ORDERED: NA CHLORIDE 0.9% 0 ML ONE (12:10)
[2021-06-20 12:37] VITALS: TEMP 98.6; O2SAT 100
[2021-06-20 12:39] VITALS: BP 129/80
== END 2021-06-20 12:33 | disposition home or self-care (01) ==
LOC: ER 09:53
DX: U07.1 COVID-19 (principal); J06.9 Acute upper respiratory infection, unspecified; I10 Essential (primary) hypertension; E78.5 Hyperlipidemia, unspecified; Z88.0 Allergy status to penicillin
CPT/HCPCS: 0240U; 99283; J7050

== ENCOUNTER 2021-12-28 09:31 | Emergency (ER) | payer OTHER ==
--- NOTE | 2021-12-28 11:41 | EDPHYS ---
Physician Documentation [facility] Name: Awa Tracy Age: 66 yrs Sex: Female : 1955 Arrival Date: 12/28/2021 Time: 09:34 Bed 10 Private MD: Baljeet Luevano F ED Physician Otoniel Martinez HPI: 12/28 11:37 This 66 yrs old Female presents to ER via Ambulatory with complaints of Sore cp Throat, Fever, body aches. 11:37 The patient presents with sore throat. The patient describes throat pain as constant. cp Onset: The symptoms/episode began/occurred yesterday. Associated signs and symptoms: Pertinent positives: body aches, Pertinent negatives cough, dysphagia, earache, fever, headache, vomiting. Historical: - Allergies: 09:40 PENICILLINS; ap3 - Home Meds: 09:40 alendronate 70 mg oral tab 1 tab once wkly [Active]; carvedilol 6.25 mg oral tab ap3 [Active]; amlodipine 5 mg tab [Active]; Livalo 2 mg Oral tab 1 tab once daily [Active]; oxybutynin chloride 10 mg Oral tr24 [Active]; - PMHx: 09:40 Hyperlipidemia; Hypertension; ap3 - Immunization history:: Client reports receiving the 2nd dose of the Covid vaccine. - Social history:: Smoking status: Patient denies any tobacco usage or history of. ROS: 11:38 Eyes: Negative for injury, pain, redness, and discharge. cp 11:38 Constitutional: Positive for body aches, Negative for fever, poor PO intake. 11:38 ENT: Positive for sore throat, Negative for drainage from ear(s), ear pain, difficulty swallowing, difficulty handling secretions. 11:38 Respiratory: Negative for cough, shortness of breath, wheezing. 11:38 Cardiovascular: Negative for chest pain, edema, palpitations. cp 11:38 Abdomen/GI: Negative for abdominal pain, nausea, vomiting, and diarrhea. 11:38 Neuro: Negative for altered mental status, dizziness, headache, weakness. 11:38 All other systems are negative. cp Exam: 11:38 Head/Face: Normocephalic, atraumatic. cp 11:38 Constitutional: The patient appears in no acute distress, alert, awake, non-toxic, well developed, well nourished. 11:38 Eyes: Periorbital structures: appear normal, Conjunctiva: normal, no exudate, no injection, Lids and lashes: appear normal, bilaterally. 11:38 ENT: External ear(s): are unremarkable, Ear canal(s): are normal, clear, TM's: dullness, bilaterally, Nose: is normal, Mouth: Lips: moist, Oral mucosa: pink and intact, moist, Posterior pharynx: Airway: no evidence of obstruction, patent, Uvula: midline, swelling, is not appreciated, erythema, that is mild, exudate, is not appreciated. 11:38 Neck: ROM/movement: is normal, is supple, without pain, no range of motions limitations, no meningismus, Lymph nodes: no appreciated lymphadenopathy. 11:38 Chest/axilla: Inspection: normal. 11:38 Cardiovascular: Rate: normal. 11:38 Respiratory: the patient does not display signs of respiratory distress, Respirations: normal, no use of accessory muscles, no retractions, labored breathing, is not present, Breath sounds: are clear throughout, no decreased breath sounds, no stridor, no wheezing. 11:38 Abdomen/GI: Exam negative for discomfort, distension, guarding, Inspection: abdomen appears normal. Vital Signs: 09:39 BP 127 / 82; Pulse 79; Resp 17; Temp 98.8; Pulse Ox 100% ; Weight 68.04 kg; Height 5 ap3 ft. 4 in. (162.56 cm); 09:39 Body Mass Index 25.75 (68.04 kg, 162.56 cm) ap3 MDM: 11:41 Patient medically screened. cp 11:41 Differential diagnosis: bronchitis, group A strep tonsillitis, laryngitis, isidoro's cp angina, peritonsillar abscess pharyngitis, retropharyngeal abcess tonsillitis, upper respiratory infection, uvulitis. 11:41 Data reviewed: vital signs, nurses notes, lab test result(s). cp 11:41 Counseling: I had a detailed discussion with the patient and/or guardian regarding: the cp historical points, exam findings, and any diagnostic results supporting the discharge/admit diagnosis, lab results, to return to the emergency department if symptoms worsen or persist or if there are any questions or concerns that arise at home. Special discussion: I discussed with the patient/guardian that the patient's current presentation does not indicate dosing of antibiotics. They should follow-up with their primary care provider and return if the symptoms persist or progress. 12/28 09:43 Order name: Flu; Complete Time: 11:43 ap3 12/28 09:43 Order name: Strep; Complete Time: 11:43 ap3 12/28 10:20 Order name: SARS-COV-2 RT PCR; Complete Time: 11:43 EDMS 12/28 10:59 Order name: Throat Culture EDMS Administered Medications: No medications were administered Disposition Summary: 12/28/21 11:41 Discharge Ordered Location: Home cp Problem: new cp Symptoms: are unchanged cp Condition: Stable cp Diagnosis - Acute nasopharyngitis [common cold] cp Followup: cp - With: Private Physician - When: 2 - 3 days - Reason: Worsening of condition Discharge Instructions: - Discharge Summary Sheet cp - Pharyngitis cp - Sore Throat cp Forms: - Medication Reconciliation Form cp - Thank You Letter cp - Antibiotic Education cp - Prescription Opioid Use cp Prescriptions: - Lidocaine Viscous - take 5 milliliter by ORAL route every 4-6 hours; 1 bottle; Refills: 0, Product cp Selection Permitted Signatures: Dispatcher [employer] EDMS Otoniel Chiu PA PA cp Prokisch, Amanda RN RN ap3 Corrections: (The following items were deleted from the chart) 10:20 09:44 COVID 19 CPL+ ordered. EDMS EDMS
--- NOTE | 2021-12-28 11:41 | ER ---
Nurse's Notes [facility] Name: Awa Tracy Age: 66 yrs Sex: Female : 1955 Arrival Date: 12/28/2021 Time: 09:34 Bed 10 Private MD: Baljeet Luevano F Diagnosis: Acute nasopharyngitis [common cold] Presentation: 12/28 09:39 Chief complaint: Patient states: she started having a sore throat, fever, body aches ap3 and chills last night. patient states it hasn't gotten any better so she came to the ED to be evaluated. Coronavirus screen: Client presents with at least one sign or symptom that may indicate coronavirus-19. Ebola Screen: No symptoms or risks identified at this time. Initial Sepsis Screen: Does the patient meet any 2 criteria? No. Patient's initial sepsis screen is negative. Does the patient have a suspected source of infection? No. Patient's initial sepsis screen is negative. Risk Assessment: Do you want to hurt yourself or someone else? Patient reports no desire to harm self or others. Onset of symptoms was December 27, 2021. 09:39 Method Of Arrival: Ambulatory ap3 09:39 Acuity: NICHOL 4 ap3 Triage Assessment: 09:42 General: Appears uncomfortable, Behavior is calm, cooperative. Pain: Complains of pain ap3 in generalized body aches. EENT: Oral mucosa is moist. Throat is reddened Reports nasal congestion nasal discharge pain when swallowing. Neuro: Level of Consciousness is awake, alert, obeys commands, Speech is normal. Cardiovascular: Patient's skin is warm and dry. Respiratory: Reports cough that is Airway is patent Respiratory effort is even, unlabored. Historical: - Allergies: 09:40 PENICILLINS; ap3 - Home Meds: 09:40 alendronate 70 mg oral tab 1 tab once wkly [Active]; carvedilol 6.25 mg oral tab ap3 [Active]; amlodipine 5 mg tab [Active]; Livalo 2 mg Oral tab 1 tab once daily [Active]; oxybutynin chloride 10 mg Oral tr24 [Active]; - PMHx: 09:40 Hyperlipidemia; Hypertension; ap3 - Immunization history:: Client reports receiving the 2nd dose of the Covid vaccine. - Social history:: Smoking status: Patient denies any tobacco usage or history of. Screenin:42 Abuse screen: Denies threats or abuse. Nutritional screening: No deficits noted. ap3 Tuberculosis screening: No symptoms or risk factors identified. Fall Risk None identified. Vital Signs: 09:39 BP 127 / 82; Pulse 79; Resp 17; Temp 98.8; Pulse Ox 100% ; Weight 68.04 kg; Height 5 ap3 ft. 4 in. (162.56 cm); 09:39 Body Mass Index 25.75 (68.04 kg, 162.56 cm) ap3 ED Course: 09:34 Patient arrived in ED. as 09:34 Baljeet Luevano MD is Private Physician. as 09:40 Triage completed. ap3 09:43 Arm band placed on left wrist. ap3 09:47 Otoniel Chiu PA is PHCP. cp 09:47 Otoniel Martinez MD is Attending Physician. cp 11:57 Aparna Jenkins, RN is Primary Nurse. iw Administered Medications: No medications were administered Outcome: 11:41 Discharge ordered by MD. cp 11:57 Patient left the ED. iw Signatures: Padmini Haskins as Aparna Jenkins, RN RN iw Otoniel Chiu PA PA cp Mesha Negron RN RN ap3
[2021-12-28 12:05] VITALS: BP 127/82; TEMP 98.8; O2SAT 100
== END 2021-12-28 11:57 | disposition home or self-care (01) ==
LOC: ER 09:31
DX: J00 Acute nasopharyngitis [common cold] (principal); I10 Essential (primary) hypertension; E78.5 Hyperlipidemia, unspecified; Z20.822 Contact with and (suspected) exposure to COVID-19; Z88.0 Allergy status to penicillin
CPT/HCPCS: 87070; 87081; 87804 ×2; 99281; U0003

== ENCOUNTER 2022-04-27 15:22 | Emergency (ER) | payer OTHER ==
--- OUTSIDE RECORDS SUMMARY | 2022-04-27 15:27 | XMS REPORT | Continuity of Care Document ---
:1955 Author Organization [facility] t Address [address] [place] [address] Care Team Providers Name Role Phone JOAQUIMSMILEY GREGG KATERINE Primary Care Physician Unavailable ANALI VIVEROS Attending Clinician Unavailable Annabelle Burns PT Attending Clinician Unavailable Nikko Herrera MD Attending Clinician NIKKO HERRERA Attending Clinician Unavailable Anali Viveros MD Attending Clinician Doctor Unassigned, [place] Attending Clinician Unavailable Payers Payer Name Policy Type Policy Number Effective Date Expiration Date Jn VEGA TRUE CHOICE [id number] 2021 MEDICARE 00:00:00 Problems Condition Condition Condition Status Onset Resolution Last Treating Co mments Source Name Details Category Date Date Treatment Clinician Date Postmenopa Postmenopa Disease Active U nivers usal usal 6-10 [place]y [place] OAB OAB Disease Active Univers (overactiv (overactiv 6-10 it y of e bladder[place] e bladder[place] Traumatic Traumatic Disease Active [facility] rotator rotator 8-22 [facility] cuff tear, cuff tear, 00:00: Me dical right, right, 00 Center initial initial encounter encounter Impingemen Impingemen Disease Active [facility] t syndrome t syndrome 8-22 Rupali kes of right of right 00:00: Medica l shoulder shoulder 00 Center Biceps Biceps Disease Active [facility] tendinitis tendinitis 8-22 Rupali kes of right of right 00:00: Medica l shoulder shoulder 00 Center SLAP SLAP Disease Active [facility] lesion of lesion of 8-22 Luke s right right 00:00: Medical shoulder shoulder 00 Center Arthritis Arthritis Disease Active [facility] of right of right 8 [facility] acromiocla acromiocla 00:00: Me dical vicular vicular 00 Center joint joint LLQ LLQ Disease Active [facility] abdominal abdominal 8-06 Luke s pain pain 00:00: Medical 00 Center Neuropathy Neuropathy Disease Active [facility] 00:00: Medical 00 Center Diarrhea Diarrhea Disease Active [facility] 806 [facility] 00:00: Medical 00 Center Fatigue Fatigue Disease Active [facility] 8[facility]06 [facility] 00:[facility]: Medical 00 Center Hair loss Hair loss Disease Active [facility] 8-06 [facility] 00:00: Medical 00 Center Multiple Multiple Disease Active [facility] t joint pain joint pain 8-06 Rupali kes 00:00: Medical 00 Center Allergies, Adverse Reactions, Alerts Allergy Allergy Status Severity Reaction(s) Onset Inactive Treating Comm ents Source Name Type Date Date Clinician Penicill Propensi Active Rash [facility] ins ty to 3-06 [facility] adverse 00:00: Medical reaction 00 Center s Penicill Propensi Active Rash Method i ins ty to 3 st adverse 00:00: Hospita reaction 00 l s to drug PENICILL Drug Active Low Rash Univers INS Class 3-06 ity of 00:00: [place] 00 Medical Branch Penicill Propensi Active Rash Rash and Univ ers ins ty to 3-06 weakness. ity of adverse 00:00: [place] reaction 00 Medical s Branch Penicill Propensi Active Rash Rash and Univ ers ins ty to 3-06 weakness. ity of adverse 00:00: [place] reaction 00 Medical s Branch Grapefru Propensi Active Rash Method i it ty to 08-26 st Extract adverse 00:00: Hospita reaction 00 l s to drug Family History Family Member Diagnosis Comments Start Date Stop Date Source Natural brother Diabetes [facility] Natural brother Heart disease [facility] Natural brother Cirrhosis [facility] Natural brother Cancer [facility] Natural father Mental illness [facility] Natural mother [facility] Natural mother [facility] Natural sister Diabetes [facility] Natural sister Lupus [facility] Natural sister Cancer [facility] Natural sister Osteoporosis [facility] Natural sister Rheumatologic disease [facility] Social History Social Habit Start Date Stop Date Quantity Comments Source Exposure to 2022-01-23 2022-02-02 Not sure [facility]-CoV-2 00:00:00 14:47:00 [facility] (event) Branch Alcohol intake 2017-11-05 2017-11-05 Current [facility] 00:00:00 00:00:00 non-drinker of alcohol (finding) Tobacco use and 2012-09-03 2012-09-03 Never used [facility] exposure 00:00:00 00:00:00 [facility] Sex Ass[birth year] [facility] 00:00:00 00:00:00 Smoking Status Start Date Stop Date Source Never smoked tobacco [facility] Medications Ordered Filled Start Stop Current Ordering Indication Dosage Frequency Signature Comments Components Source Medication Medication Date Date Medication? Clinician (SIG) Name Name oxybutynin Yes [id number] 15mg Take 1 Univers 15 mg 24 hr 8-05 tablet by ity of tablet 00:00: mouth in [place] 00 the Medical morning. Branch oxybutynin Yes [id number] 15mg Take 1 Univers 15 mg 24 hr 8-05 tablet by ity of tablet 00:00: mouth in [place] 00 the Medical morning. Branch oxybutynin Yes [id number] 15mg Take 1 Univers 15 mg 24 hr 8-05 tablet by ity of tablet 00:00: mouth in [place] 00 the Medical morning. Branch oxybutynin Yes [id number] 15mg Take 1 Univers 15 mg 24 hr 8-05 tablet by ity of tablet 00:00: mouth in [place] 00 the Medical morning. Branch alendronate Yes [id number] 70mg Take 1 Univers 70 mg 6-14 tablet by ity of tablet 00:00: mouth [place] weekly. Medical Branch alendronate 0 Yes [id number] 70mg Take 1 Univers 70 mg 6-14 tablet by ity of tablet 00:00: mouth [place] weekly. Medical Branch alendronate 2021-0 Yes [id number] 70mg Take 1 Univers 70 mg 6-14 tablet by ity of tablet 00:00: mouth [place] weekly. Medical Branch alendronate 0 Yes [id number] 70mg Take 1 Univers 70 mg 6-14 tablet by ity of tablet 00:00: mouth [place] weekly. Medical Branch MELATONIN Yes Take by Unive rs ORAL 6-10 mouth. ity of 08:39: [place] [address] Medical Branch calcium Yes 1000mg Take 1,000 Un lore carbonate-v 6-10 mg by ity of itamin D3 08:39: mouth. [place] 250 22 Medical mg-3.125 Branch mcg (125 unit) per tablet MELATONIN Yes Take by Unive rs ORAL 6-10 mouth. ity of 08:39: [place] [address] Medical Branch calcium Yes 1000mg Take 1,000 Un lore carbonate-v 6-10 mg by ity of itamin D3 08:39: mouth. [place] 250 22 Medical mg-3.125 Branch mcg (125 unit) per tablet MELATONIN Yes Take by Unive rs ORAL 6-10 mouth. ity of 08:39: [address] calcium Yes 1000mg Take 1,000 Un lore carbonate-v 6-10 mg by ity of itamin D3 08:39: mouth. [place] 250 22 Medical mg-3.125 Branch mcg (125 unit) per tablet MELATONIN Yes Take by Unive rs ORAL 6-10 mouth. ity of 08:39: [address] calcium Yes 1000mg Take 1,000 Un lore carbonate-v 6-10 mg by ity of itamin D3 08:39: mouth. [place] 250 22 Medical mg-3.125 Branch mcg (125 unit) per tablet oxybutynin 2021- No [id number] 10mg Take 1 Univers 10 mg 24 hr 6-10 02-02 tablet by it y of tablet 00:00: 00:00 mouth [place] 00 :00 daily. Medical Branch oxybutynin 2021-0 2021- No [id number] 10mg Take 1 Univers 10 mg 24 hr 6-10 08-05 tablet by it y of tablet 00:00: 00:00 mouth [place] 00 :00 daily. Medical Branch carvediloL 2021-0 Yes 6.25mg Take 6.25 Univers 6.25 mg 4-08 mg by ity of tablet 09:26: mouth. [place] [address] Medical Branch amLODIPine 2021-0 Yes 5mg Take 5 mg Un lore 5 mg tablet 4-08 by mouth. ity of 09:26: [place] [address] Medical Branch Pitavastati 2021-0 Yes Take by Uni vers n 2 mg Tab 4-08 mouth. ity of 09:26: [place] [address] Medical Branch carvediloL 2021-0 Yes 6.25mg Take 6.25 Univers 6.25 mg 4-08 mg by ity of tablet 09:26: mouth. [place] [address] Medical Branch amLODIPine 2021-0 Yes 5mg Take 5 mg Un lore 5 mg tablet 4-08 by mouth. ity of 09:26: [place] [address] Medical Branch Pitavastati 2021-0 Yes Take by Uni vers n 2 mg Tab 4-08 mouth. ity of 09:26: [place] [address] Medical Branch carvediloL 2021-0 Yes 6.25mg Take 6.25 Univers 6.25 mg 4-08 mg by ity of tablet 09:26: mouth. [place] [address] Medical Branch amLODIPine 2021-0 Yes 5mg Take 5 mg Un lore 5 mg tablet 4-08 by mouth. ity of 09:26: [place] [address] Medical Branch Pitavastati 2021-0 Yes Take by Uni vers n 2 mg Tab 4-08 mouth. ity of 09:26: [place] [address] Medical Branch carvediloL 2021-0 Yes 6.25mg Take 6.25 Univers 6.25 mg 4-08 mg by ity of tablet 09:26: mouth. [place] [address] Medical Branch amLODIPine 2021-0 Yes 5mg Take 5 mg Un lore 5 mg tablet 4-08 by mouth. ity of 09:26: [place] [address] Medical Branch Pitavastati 2021-0 Yes Take by Uni vers n 2 mg Tab 4-08 mouth. ity of 09:26: [address] calcium 2018-0 Yes 1000mg Take 1,000 Me thodi carbonate-v 5-[address] itamin D3 09:42: mouth. Hospit a 250-125 05 l mg-unit tablet melatonin-p Yes Place Metho di yridoxine, 5-[address] vit B6, 09:42: tongue. Hospita 2.5-0.5 mg 05 l tablet, sublingual co-enzyme Yes 100mg Take 100 Met hodi Q-10 50 mg 5-[address] capsule 09:42: mouth. Hospita 05 l melatonin-p Yes QD Place [facility] t yridoxine, 8-22 under the Luke s vit B6, 12:16: tongue Medical (MELATONIN, 57 nightly. Cent er WITH B6,) 2.5-0.5 mg Subl co-enzyme Yes 100mg QD Take [address] Q-10 50 mg 8-22 mg by [facility]ukes capsule 12:16: mouth Medical 57 daily. Center calcium Yes 1000mg Q.5D Take 1,[address] carbonate-v 8-22 mg by [facility]ukes itamin D2 12:16: mouth 2 Medic al (CALCIUM- 57 (two) Center TAMIN D) times 500-125 daily. mg-unit Tab RED YEAST Yes 600mg QD Take [address] RICE ORAL 8-22 mg by [facility]ukes 12:16: mouth Medical 57 daily. Center traMADol Yes 50mg Take [address] (ULTRAM) 50 8-22 by mouth Luke s mg tablet 12:16: every 6 Medic al 57 (six) Center hours as needed for Pain. pitavastati Yes Method i n calcium 8-06 st (LIVALO) 2 00:00: Hospita mg tablet 00 l carvedilol Yes 6.25mg Take [address] (COREG) 6-26 tablet Lukes 6.25 MG 00:00: (6.25 mg Medica l tablet 00 total) by Center mouth 2 (two) times daily with breakfast and dinner. carvedilol Yes 6.25mg Take 6.25 Methodi (COREG) 6-[address] 6.25 MG 00:00: mouth. Hospita tablet 00 l amLODIPine 2015-0 Yes Hypertensio 5mg QD Take [address] (NORVASC) 5 5-11 n tablet (5 Debra es MG tablet 00:00: mg total) Med ical 00 by mouth Center daily. amLODIPine Yes 5mg Take 5 mg Me thodi (NORVASC) 5 5-[address] mg tablet 00:00: Hospita 00 l pitavastati Yes Hyperlipide 2mg QD Take [address] n (LIVALO) 5-06 mary by mouth Lukes 2 mg Tab 00:00: daily. Medical tablet 00 Center omega-3 Yes 2g Q.5D Take [address] acid ethyl 5-06 capsules [facility]ukes esters 00:00: (2 g Medical (LOVAZA) 1 00 total) by Cent er gram mouth 2 capsule (two) times daily. omega-3 Yes 2g Take 2 g Method i acid ethyl 5-[address] esters 00:00: Hospita (LOVAZA) 1 00 l gram capsule Immunizations Ordered Filled Immunization Date Status Comments [facility] Immunization Name Name Influenza High Dose 2021-07-03 Completed Unive rsity of [place] 00:00:00 [facility] Influenza High Dose 2021-07-03 Completed Unive rsity of Quad 00:00:00 [facility] Influenza High Dose 2021-07-03 Completed Unive rsity of Quad 00:00:00 [facility] Influenza High Dose 2021-07-03 Completed Unive rsity of Quad 00:00:00 [facility] SARS-COV-2 COVID-19 2021-05-09 Completed Unive rsity of MODERNA VACCINE 00:00:00 [facility] ical Branch SARS-COV-2 COVID-19 2021-05-09 Completed Unive rsity of MODERNA VACCINE 00:00:00 [facility] Branch SARS-COV-2 COVID-19 2021-05-09 Completed Unive rsity of MODERNA VACCINE 00:00:00 [facility] ical Branch SARS-COV-2 COVID-19 2021-05-09 Completed Unive rsity of MODERNA 12+ YRS 00:00:00 [facility] Branch SARS-COV-2 COVID-19 2020-10-06 Completed Unive rsity of MODERNA VACCINE 00:00:00 [place] Med ical Branch SARS-COV-2 COVID-19 2020-10-06 Completed Unive rsity of MODERNA VACCINE 00:00:00 [facility] ica Branch SARS-COV-2 COVID-19 2020-10-06 Completed Unive rsity of MODERNA VACCINE 00:00:00 [facility] SARS-COV-2 COVID-19 2020-10-06 Completed Unive rsity of MODERNA 12+ YRS 00:00:00 [facility] ical VACCINE Branch SARS-COV-2 COVID-19 2020-09-08 Completed Unive rsity of MODERNA VACCINE 00:00:00 [facility] Branch SARS-COV-2 COVID-19 2020-09-08 Completed Unive rsity of MODERNA VACCINE 00:00:00 [facility] Branch SARS-COV-2 COVID-19 2020-09-08 Completed Unive rsity of MODERNA VACCINE 00:00:00 [facility] [place] SARS-COV-2 COVID-19 2020-09-08 Completed Unive rsity of MODERNA 12+ YRS 00:00:00 [facility] VACCINE [place] Vital Signs Vital Name Observation Time Observation Value Comments Source Systolic blood 2022-02-02 20:11:00 139 mm[Hg] Univer sity of pressure [facility] Diastolic blood 2022-02-02 20:11:00 82 mm[Hg] Unive rsity of pressure [facility] Heart rate 2022-02-02 20:11:00 70 /min [facility] Respiratory rate 2022-02-02 20:11:00 18 /min [facility] Body height 2022-02-02 20:11:[address] [facility] Body weight 2022-02-02 20:11:[address] [facility] BMI 2022-02-02 20:11:00 26.95 kg/m2 [facility] Oxygen saturation in 2022-02-02 20:11:00 96 /min [facility] Arterial blood by [facility] Pulse oximetry Branch Procedures This patient has no known procedures. Plan of Care Planned Activity Planned Date Details Comments Source Future Scheduled 2022-03-12 HEPATITIS B VACCINES Met [facility] [place] Test 13:59:25 (1 of 3 - 3-dose series) [code = HEPATITIS B VACCINES (1 of 3 - 3-dose series)] Future Scheduled 2022-03-12 COVID-19 VACCINE (#1) [facility] Test 13:59:25 [code = COVID-19 VACCINE (#1)] Future Scheduled 2022-03-12 BREAST CANCER [facility] Test 13:59:25 SCREENING [code = BREAST CANCER SCREENING] Future Scheduled 2022-03-12 COLONOSCOPY SCREENING [facility] Test 13:59:25 [code = COLONOSCOPY SCREENING] Future Scheduled 2022-03-12 SHINGLES VACCINES (1 Met [facility] [place] Test 13:59:25 of 2) [code = SHINGLES VACCINES (1 of 2)] Future Scheduled 2022-03-12 65+ [facility] 13:59:25 VACCINE (1 - PCV) [code = 65+ PNEUMOCOCCAL VACCINE (1 - PCV)] Future Scheduled 2022-03-12 INFLUENZA VACCINE Method [facility] Test 13:59:25 [code = INFLUENZA VACCINE] Encounters Start End Encounter Admission Attending Care Care Encounter Source Date/Time Date/Time Type Type Clinicians Facility Department ID 2022-10-09 2022-10-09 Outpatient R KADY [facility] [id number] Univers 15:00:00 15:00:00 ANALI pinzon [facility] 2022-03-12 2022-03-12 Ancillary Annabelle Burns [facility] 1.2.840. [id number] Univers 14:00:00 15:00:00 [id number] [id number] Luis Daniel JULIO [phone] [address] 2022-03-12 2022-03-12 Outpatient R ROSEANNA [facility] [id number] Univers 14:00:00 14:00:00 NIKKO pinzon [facility] 2022-02-12 2022-02-12 Outpatient R ROSEANNA [facility] [id number] Univers 15:00:00 15:59:43 NIKKO pinzon [facility] 2022-02-12 2022-02-12 Ancillary Annabelle Burns [facility] 1.2.840. 114 [id number] Univers 15:00:00 15:59:43 Visit Nikko Herrera [id number] [facility]y [facility] [id number] [phone] Vt dical NAL [address] [facility] 2022-02-12 2022-02-12 Outpatient R ROSEANNA [facility] [id number] Univers 15:00:00 15:00:00 NIKKO pinzon [facility] 2022-02-02 2022-02-02 Outpatient R MICHAELSCOTT, [facility] [id number] Univers 15:00:00 15:38:42 ANALI pinzon [facility] 2022-02-02 2022-02-02 [facility] [id number] Univers 15:00:00 15:38:42 Visit Anali Zacarias [place] [id number] it[id number] [id number] Vt dical NAL [address] [facility] 2022-01-29 2022-01-29 Ancillary [place] Annabelle Stanley [facility] 1.2.840. 114 [id number] Univers 15:00:00 16:02:07 Visit Nikko Herrera [id number] ity of [facility] [id number] [phone] Vt dical NAL [address] [facility] 2022-01-15 2022-01-15 [facility] [id number] Univers 16:00:00 16:51:02 NIKKO pinzon [facility] 2022-01-15 2022-01-15 Ancillary BurnsIvory villarufus Stanley [facility] 1.2.840. 114 [id number] Univers 16:00:00 16:51:02 Visit Nikko HerreraCHAZ [id number] ity of [facility] [id number] [id number] Vt dical NAL [address] [facility] 2021-12-12 2021-12-12 [facility] [id number] Univers 00:00:00 00:00:00 Anali L [place] [id number] ity [id number] [phone] Vt dical NAL [address] [place] [address] 2021-12-11 2021-12-11 [facility] [id number] Univers 00:00:00 00:00:00 Anali L [place] [id number] [place]y [id number] [id number] Vt dical NAL [address] [place] [address] 2021-12-08 2021-12-08 Outpatient R AD, [facility] [id number] Univers 08:15:00 09:13:00 ANALI ity [facility] 2021-12-08 2021-12-08 Office [facility] [id number] Univers 08:15:00 09:13:00 Visit Anali L [place] [id number] ity of [facility] [id number] [id number] Vt dical NAL [address] [place] [address] 2021-12-08 2021-12-08 Refill Critical [facility] hospital 1.2.840.114 [id number] Univers 00:00:00 00:00:00 Anali L [place] [id number] ity of [facility] [id number] [phone] Vt dical NAL [address] [place] [address] 2021-11-17 2021-11-17 Outpatient R ADUM, [facility] [id number] Univers 10:30:00 10:30:00 ANALI ity [facility] 2021-11-17 2021-11-17 Outpatient R ADUM, [facility] [id number] Univers 10:30:00 10:30:00 ANALI ity [facility] 2021-11-03 2021-11-03 [facility] 1.2.840.114 [id number] Univers 09:40:15 23:59:00 Encounter Anali L [place] [id number] ity of [facility] [id number] [id number] [facility] [address] [place] 2021-11-03 2021-11-03 [facility] 1.2.840.114 [id number] Univers 09:39:13 09:39:13 Encounter Anali BURNS [id number] ity of [facility] [id number] [id number] [facility] [address] [place] 2021-11-03 2021-11-03 [facility] [id number] Univers 09:39:13 09:39:[address] [facility] 2021-11-03 2021-11-03 Orders Doctor ALEXA [id number] [id number] Univers 00:00:00 00:00:00 Only Unassigned, JONATHAN [id number] ity of [place] [facility] [id number] Roberto as [id number] [address] 2021-10-19 2021-10-19 [facility] [id number] Univers 00:00:00 00:00:00 Anali BURNS [id number] ity of [facility] [id number] [id number] Vt dical NAL [address] [place] [address] 2021-10-06 2021-10-06 [facility] [id number] Univers 09:00:00 10:30:[address] [facility] 2021-10-06 2021-10-06 Office [facility] 1.2.840.114 [id number] Univers 09:00:00 10:30:20 Visit Anali Zacarias [place] [id number] ity of [facility] [id number] [id number] Vt dical NAL [address] [place] [address] 2021-10-06 2021-10-06 Letter Doctor ALEXA [id number] [id number] Univers 00:00:00 00:00:00 (Out) Unassigned, JONATHAN [id number] ity of [place] [facility] [id number] Roberto as [phone] [facility] 044 Branch Results This patient has no known results.
[2022-04-27 16:25] LABS: Urine Blood 1+ (Negative); Urine Glucose Negative (Negative); Urine Protein Negative (Negative); Urine Specific Gravity 1.025 (1.005-1.030)
[2022-04-27 16:29] LABS: Absolute Lymphocytes (CBC) 1.7 K/uL (0.7-4.9); Hematocrit 40.6 % (36.0-45.0); Lymphocytes % 20.2 % (15.3-44.8); MPV 7.7 fL (7.6-11.3); RBC Red Blood Cell Count 4.78 M/uL (3.86-4.86)
[2022-04-27 16:45] LABS: Albumin 3.8 g/dL (3.4-5.0); Bilirubin Total 0.6 mg/dL (0.2-1.0); Potassium 3.7 mmol/L (3.5-5.1); Protein, Total 8.4 g/dL (6.4-8.2)
--- NOTE | 2022-04-27 18:11 | RAD REPORT ---
EXAM DESCRIPTION: CTAbdomen Pelvis W Contrast - 04/27/2022 5:59 pm CLINICAL HISTORY: left flank pain COMPARISON: Abdomen Pelvis W Contrast dated 10/28/2019; Abdomen Pelvis W Contrast dated 07/25/2019 ; Abdomen Pelvis W Contrast dated 02/10/2017; CT ABD PELVIS W CONTRAST dated 08/08/2013 TECHNIQUE: CT of the abdomen and pelvis was performed. All CT scans are performed using dose optimization technique as appropriate and may include automated exposure control or mA/KV adjustment according to patient size. FINDINGS: Lower chest: Mild circumferential thickened distal esophagus. Liver: No acute abnormality or suspicious lesions. Biliary: No biliary ductal dilatation. Stomach: No significant focal abnormality. Duodenum: No significant focal abnormality. Pancreas: No significant abnormality. Spleen: No significant abnormality. Adrenal: No suspicious lesions. Kidney/ureter: No hydronephrosis. No renal calculi. Too small to characterize and/or benign appearing renal lesions are noted. Retroperitoneum: No retroperitoneal adenopathy. Vascular: No aneurysm. Atherosclerosis Bowel: Non perforated diverticulitis of the descending colon. No free air or abscess.. Peritoneum: No ascites or free air. Bladder: Grossly unremarkable. Reproductive: No adnexal masses. Hysterectomy Bones: No acute fracture. Other: n/a IMPRESSION: Acute diverticulitis of the descending colon. No perforation or abscess.
[2022-04-27] MEDS ORDERED: MORPHINE 4 MG/ML SYR ONE (19:54)
[2022-04-27] MEDS ORDERED: levoFLOXacin 750 MG TAB ONE (19:54)
[2022-04-27] MEDS ORDERED: ONDANSETRON 4 MG/2 ML VIAL ONE (19:54)
[2022-04-27] MEDS ORDERED: metroNIDAZOLE 500 MG TABLET ONE (19:55)
--- NOTE | 2022-04-27 20:28 | EDPHYS ---
Physician Documentation [facility] Name: Awa Tracy Age: 66 yrs Sex: Female : 1955 Arrival Date: 04/27/2022 Time: 15:30 Bed 10 Private MD: ED Physician Gary Irizarry HPI: 04/27 16:02 This 66 yrs old Female presents to ER via Ambulatory with complaints of Left jmm side pain. 16:02 The patient presents with abdominal pain in the left lower quadrant. Onset: The jmm symptoms/episode began/occurred gradually. The symptoms do not radiate. Associated signs and symptoms: Pertinent negatives: fever, vomiting. The symptoms are described as achy. Modifying factors: The symptoms are alleviated by nothing, the symptoms are aggravated by nothing. The patient has experienced similar episodes in the past. Historical: - Allergies: 15:54 PENICILLINS; kb3 - Home Meds: 15:54 alendronate 70 mg Oral tab 1 tab once wkly [Active]; amlodipine 5 mg tab [Active]; kb3 carvedilol 6.25 mg Oral tab [Active]; Livalo 2 mg Oral tab 1 tab once daily [Active]; oxybutynin chloride 10 mg Oral tab [Active]; - PMHx: 15:54 Hyperlipidemia; Hypertension; Overactive bladder; kb3 - PSHx: 15:54 None; kb3 - Immunization history:: Adult Immunizations up to date, Client reports receiving the 2nd dose of the Covid vaccine, Last tetanus immunization: up to date. - Social history:: Smoking status: Patient denies any tobacco usage or history of. ROS: 16:02 Constitutional: Negative for fever, chills, and weight loss, Cardiovascular: Negative jmm for chest pain, palpitations, and edema, Respiratory: Negative for shortness of breath, cough, wheezing, and pleuritic chest pain. 16:02 Abdomen/GI: Positive for abdominal pain. 16:02 All other systems are negative. Exam: 16:02 Constitutional: This is a well developed, well nourished patient who is awake, alert, jmm and in no acute distress. Head/Face: atraumatic. Eyes: EOMI, no conjunctival erythema appreciated ENT: Moist Mucus Membranes Neck: Trachea midline, Supple Chest/axilla: Normal chest wall appearance and motion. Cardiovascular: Regular rate and rhythm. No edema appreciated Respiratory: Normal respirations, no respiratory distress appreciated 16:02 Back: Normal ROM Skin: General appearance color normal MS/ Extremity: Moves all extremities, no obvious deformities appreciated, no edema noted to the lower extremities Neuro: Awake and alert Psych: Behavior is normal, Mood is normal, Patient is cooperative and pleasant 16:02 Abdomen/GI: Inspection: abdomen appears normal, Bowel sounds: normal, Palpation: soft, mild abdominal tenderness, in the left upper quadrant and left lower quadrant. Vital Signs: 15:53 BP 149 / 83; Pulse 83; Resp 16; Temp 99.4; Pulse Ox 97% ; Weight 69.85 kg; Height 5 ft. kb3 4 in. (162.56 cm); Pain 8/10; 19:55 BP 136 / 82; Pulse 80; Resp 16; Pulse Ox 99% on R/A; hb 15:53 Body Mass Index 26.43 (69.85 kg, 162.56 cm) kb3 MDM: 16:27 Patient medically screened. katya 20:26 Data reviewed: vital signs, nurses notes. Counseling: I had a detailed discussion with vianney the patient and/or guardian regarding: the historical points, exam findings, and any diagnostic results supporting the discharge/admit diagnosis, the need for outpatient follow up, to return to the emergency department if symptoms worsen or persist or if there are any questions or concerns that arise at home. 23:51 ED course: Patient is alert and nontoxic in appearance in the ED. Able tolerate p.o. vianney Patient has been hospitalized in the past with diverticulitis. Patient has a preference for home therapy and otherwise given strict return precautions. Patient discharged to supportive care peer. 04/27 16:02 Order name: CBC with Diff; Complete Time: 16:33 [facility] 04/27 16:02 Order name: CMP; Complete Time: 17:08 [facility] 04/27 16:02 Order name: Lipase; Complete Time: 17:08 [facility] 04/27 16:26 Order name: Urine Dipstick-Ancillary; Complete Time: 16:27 [facility] 04/27 17:09 Order name: CT Abd/Pelvis - IV Contrast Only; Complete Time: 18:12 [facility] 04/27 16:02 Order name: IV Saline Lock; Complete Time: 16:19 [facility] 04/27 16:02 Order name: Labs collected and sent; Complete Time: 16:19 [facility] 04/27 16:02 Order name: Urine Dipstick-Ancillary (obtain specimen); Complete Time: 16:25 [facility] Administered Medications: 20:05 Drug: LevaQUIN (levofloxacin) 750 mg Route: PO; hb 20:37 Follow up: Response: No adverse reaction hb 20:05 Drug: Flagyl (metroNIDAZOLE) 500 mg Route: PO; hb 20:37 Follow up: Response: No adverse reaction hb 20:05 Drug: morphine 4 mg Route: IVP; Infused Over: 4 mins; Site: right antecubital; hb 20:37 Follow up: Response: No adverse reaction hb 20:05 Drug: Zofran (Ondansetron) 4 mg Route: IVP; Site: right antecubital; hb 20:37 Follow up: Response: No adverse reaction hb Disposition Summary: 04/27/22 20:27 Discharge Ordered Location: Home [facility] Condition: Stable [facility] Diagnosis - Acute diverticulitis [facility] Followup: [facility] - With: Private Physician - When: 2 - 3 days - Reason: Recheck today's complaints, Continuance of care, Re-evaluation by your physician Discharge Instructions: - Discharge Summary Sheet [facility] - Diverticulitis [facility] Forms: - Medication Reconciliation Form [facility] - Thank You Letter [facility] - Antibiotic Education [facility] - Prescription Opioid Use [facility] - Work release form Prescriptions: - levofloxacin 750 mg Oral Tablet - take 1 tablet by ORAL route once daily for 9 days; 9 tablet; Refills: 0, [facility] Product Selection Permitted - Flagyl 500 mg Oral Tablet - take 1 tablet by ORAL route every 6 hours for 10 days; 40 tablet; Refills: 0, [facility] Product Selection Permitted - Ultracet 37.5-325 mg Oral Tablet - take 1 tablet by ORAL route every 6 hours - for up to 5 days; do not exceed 8 jmm tablets per day.; 12 tablet; Refills: 0, Product Selection Permitted Addendum: 05/01/2022 09:30 Co-signature as Attending Physician, Gary Irizarry DO I was immediately available on-site m s3 in the Emergency Department for consultation in the care of the patient. Signatures: Dispatcher [employer] EDGregory Lerma PA PA Yue Smiley RN RN Gary Mendoza DO DO ms3 Tito, Kathie, RN RN kb3
--- NOTE | 2022-04-27 20:28 | ER ---
Nurse's Notes [facility] Name: Awa Tracy Age: 66 yrs Sex: Female : 1955 Arrival Date: 04/27/2022 Time: 15:30 Bed 10 Private MD: Diagnosis: Acute diverticulitis Presentation: 04/27 15:53 Chief complaint: Patient states: PT reports left flank pain x2 years, worse since kb3 yesterday. Denies injury, denies urinary symptoms. Coronavirus screen: Vaccine status: Patient reports receiving the 2nd dose of the covid vaccine. Client denies travel out of the [place] in the last 14 days. Ebola Screen: Patient negative for fever greater than or equal to 101.5 degrees Fahrenheit, and additional compatible Ebola Virus Disease symptoms Patient denies exposure to infectious person. Patient denies travel to an Ebola-affected area in the 21 days before illness onset. Initial Sepsis Screen: Does the patient meet any 2 criteria? No. Patient's initial sepsis screen is negative. Does the patient have a suspected source of infection? No. Patient's initial sepsis screen is negative. Risk Assessment: Do you want to hurt yourself or someone else? Patient reports no desire to harm self or others. Onset of symptoms was April 26, 2022. 15:53 Method Of Arrival: Ambulatory 3 15:53 Acuity: NICHOL 4 kb3 Triage Assessment: 15:54 General: Appears in no apparent distress. uncomfortable, Behavior is calm, cooperative. kb3 Pain: Complains of pain in left low back and left mid back Pain does not radiate. Pain currently is 8 out of 10 on a pain scale. Quality of pain is described as sharp. Historical: - Allergies: 15:54 PENICILLINS; kb3 - Home Meds: 15:54 alendronate 70 mg Oral tab 1 tab once wkly [Active]; amlodipine 5 mg tab [Active]; kb3 carvedilol 6.25 mg Oral tab [Active]; Livalo 2 mg Oral tab 1 tab once daily [Active]; oxybutynin chloride 10 mg Oral tab [Active]; - PMHx: 15:54 Hyperlipidemia; Hypertension; Overactive bladder; kb3 - PSHx: 15:54 None; kb3 - Immunization history:: Adult Immunizations up to date, Client reports receiving the 2nd dose of the Covid vaccine, Last tetanus immunization: up to date. - Social history:: Smoking status: Patient denies any tobacco usage or history of. Screenin:37 Abuse screen: Denies threats or abuse. Denies injuries from another. Nutritional hb screening: No deficits noted. Tuberculosis screening: No symptoms or risk factors identified. Fall Risk None identified. Assessment: 19:55 General: SEE TRIAGE ASSESSMENT. hb 20:15 Reassessment: Patient appears in no apparent distress at this time. Reassessment: hb Patient appears in no apparent distress at this time. Patient and/or family updated on plan of care and expected duration. Pain level reassessed. Patient is alert, oriented x 3, equal unlabored respirations, skin warm/dry/pink. Vital Signs: 15:53 BP 149 / 83; Pulse 83; Resp 16; Temp 99.4; Pulse Ox 97% ; Weight 69.85 kg; Height 5 ft. kb3 4 in. (162.56 cm); Pain 8/10; 19:55 BP 136 / 82; Pulse 80; Resp 16; Pulse Ox 99% on R/A; hb 15:53 Body Mass Index 26.43 (69.85 kg, 162.56 cm) kb3 ED Course: 15:30 Patient arrived in ED. am2 15:35 Gregory Willis PA is PHCP. [facility] 15:35 Gary Irizarry DO is Attending Physician. m 15:54 Triage completed. kb3 15:54 Arm band placed on right wrist. kb3 16:19 Inserted saline lock: 20 gauge in right antecubital area, using aseptic technique. zm Blood collected. 16:19 CBC with Diff Sent. zm 16:19 CMP Sent. zm 16:19 Lipase Sent. zm 16:25 CBC with Diff Sent. zm 16:25 CMP Sent. zm 16:25 Lipase Sent. zm 18:01 CT Abd/Pelvis - IV Contrast Only In Process Unspecified. EDMS 20:05 Yue Johnson, RN is Primary Nurse. hb 20:37 Patient has correct armband on for positive identification. hb 20:39 No provider procedures requiring assistance completed. IV discontinued, intact, hb bleeding controlled, No redness/swelling at site. Administered Medications: 20:05 Drug: LevaQUIN (levofloxacin) 750 mg Route: PO; hb 20:37 Follow up: Response: No adverse reaction hb 20:05 Drug: Flagyl (metroNIDAZOLE) 500 mg Route: PO; hb 20:37 Follow up: Response: No adverse reaction hb 20:05 Drug: morphine 4 mg Route: IVP; Infused Over: 4 mins; Site: right antecubital; hb 20:37 Follow up: Response: No adverse reaction hb 20:05 Drug: Zofran (Ondansetron) 4 mg Route: IVP; Site: right antecubital; hb 20:37 Follow up: Response: No adverse reaction hb Medication: 20:15 VIS not applicable for this client. hb Outcome: 20:27 Discharge ordered by . vianney 20:39 Discharged to home ambulatory. hb 20:39 Condition: stable 20:39 Discharge instructions given to patient, Instructed on discharge instructions, follow up and referral plans. medication usage, Demonstrated understanding of instructions, follow-up care, medications, Prescriptions given X 3. 20:39 Patient left the ED. hb Signatures: Dispatcher [employer] EDMS Gregory Willis PA PA jmm Baxter, Heather, RN RN Mesha Iraheta amMadison Galo Kelly, RN RN kb3
[2022-04-27 21:09] VITALS: TEMP 99.4
[2022-04-27 21:10] VITALS: BP 136/82; O2SAT 99
== END 2022-04-27 20:39 | disposition home or self-care (01) ==
LOC: ER 15:22
DX: K57.92 Diverticulitis of intestine, part unspecified, without perforation or abscess without bleeding (principal); I10 Essential (primary) hypertension; Z88.0 Allergy status to penicillin
CPT/HCPCS: 85025; 36415; 81003; 83690; 80053; 74177; 96375; 96374; 99284; Q9967; J2405

== ENCOUNTER 2022-09-14 07:14 | Emergency (ER) | payer OTHER ==
--- OUTSIDE RECORDS SUMMARY | 2022-09-14 07:18 | XMS REPORT | Continuity of Care Document ---
:1955 Author Organization Formerly [facility] t Address [address] [facility] [address] [place] [address] Care Team Providers Name Role Phone Daija KENDALL, Catrachita Warren Primary Care Physician Siddhartha Luz Attending Clinician Unavailable ANALI HILLMAN Attending Clinician Unavailable Annabelle Burns PT Attending Clinician Unavailable Nikko Condon MD Attending Clinician NIKKO CONDON Attending Clinician Unavailable Anali Hillman MD Attending Clinician Doctor Unassigned, [place] Attending Clinician Unavailable Payers Payer Name Policy Type Policy Number Effective Date Expiration Date Jn VEGA TRUE CHOICE [id number] 2021 MEDICARE 00:00:00 Problems Condition Condition Condition Status Onset Resolution Last Treating Co mments Source Name Details Category Date Date Treatment Clinician Date Postmenopa Postmenopa Disease Active U nivers usal usal 6-10 ity of osteopor[place] [facility] Branch Traumatic Traumatic Disease Active [facility] rot[facility] rotator 8-22 [facility] cuff tear, cuff tear, 00:00: Me dical right, right, 00 Center initial initial encounter encounter Impingemen Impingemen Disease Active C [facility] t syndrome t syndrome 02-19 Rupali kes of right of right 00:00: Medica l shoulder shoulder 00 Center Biceps Biceps Disease Active [facility] tendinitis tendinitis 02-19 Rupali kes of right of right 00:00: Medica l shoulder shoulder 00 Center SLAP SLAP Disease Active [facility] lesion of lesion of 02-19 [facility] right right 00:00: Medical shoulder shoulder 00 Center Arthritis Arthritis Disease Active [facility] of right of right 02-19 [facility] acromiocla acromiocla 00:00: Me dical vicular vicular 00 Center joint joint LLQ LLQ Disease Active [facility] abdominal abdominal 02-03 [facility] s pain pain 00:00: Medical 00 [place] Neuropathy Neuropathy Disease Active [facility] 02[facility]03 [facility] 00:00: Medical 00 Center Diarrhea Diarrhea Disease Active [facility] 00:00: Medical 00 Center Fatigue Fatigue Disease Active [facility] 8 [facility] 00[facility] Medical 00 Center Hair loss Hair loss Disease Active [facility]06 [facility] 00:[facility]: Medical 00 Center Multiple Multiple Disease Active [facility] t joint pain joint pain 02-03 Rupali kes 00:00: Medical 00 [place] [id number] Diverticul Problem Co mmon osis large Spirit intestine - CHI w/o St perforatio [facility] n or Medical abscess Center w/o bleeding [id number] Age-relate Problem Com mon d Spirit osteoporos - CHI is without [facility] pathologic Medica l al Center fracture [id number] Mixed Problem Common hyperlipid Spirit emia - [facility] [id number] Overactive Problem Co mmon bladder Spirit - [facility] [id number] Benign Problem Common essential Spirit HTN - [facility] [id number] Nonalcohol Problem C ommon ic fatty Spirit liver - CHI disease [facility] Allergies, Adverse Reactions, Alerts Allergy Allergy Status Severity Reaction(s) Onset Inactive Treating Comm ents Source Name Type Date Date Clinician PENICILL Drug Active Low Rash Univers INS Class 3-06 ity of 00:00: [place] 00 Medical Branch Penicill Propensi Active Rash Rash and Univ ers ins ty to 09-03 weakness. ity of adverse 00:00: [place] reaction 00 Medical s Branch Penicill Propensi Active Rash [facility] ins [facility] to 09-03 [facility] adverse 00:00: Medical reaction 00 Center s Penicill Propensi Active Rash [facility] ins ty to 09-03 [facility] adverse 00:00: Medical reaction 00 Center s Penicill Propensi Active Rash Method i ins ty to 09-03 st adverse 00:00: Hospita reaction 00 l s to drug Grapefru Propensi Active Rash Method i it ty to 08-26 st Extract adverse 00:00: Hospita reaction 00 l s to drug penicill penicill Active Unknown Commo n in V in V [facility] Family History Family Member Diagnosis Comments Start Date Stop Date Source Natural brother Diabetes [facility] Natural brother Heart disease [facility] Natural brother Cirrhosis [facility] Natural brother Cancer [facility] Natural father Mental illness [facility] Natural mother Cancer [facility] Natural mother Osteoporosis [facility] Natural sister Diabetes [facility] Natural sister Lupus [facility] Natural sister Cancer [facility] Natural sister Osteoporosis [facility] Natural sister Rheumatologic disease [facility] Social History Social Habit Start Date Stop Date Quantity Comments Source Exposure to 2022-01-23 2022-02-02 Not sure [facility] SARS-CoV-2 00:00:00 14:47:00 [place] Medical (event) Branch Alcohol intake 2016-02-22 2016-02-22 [facility]00 non-drinker of Medical Ce nter alcohol (finding) Tobacco use and 2012-09-03 2012-09-03 Never used [facility] exposure 00:00:00 00:00:00 [facility] Sex Assigned At [birth year] [facility] 00:00:00 00:00:00 Medical Center Smoking Status Start Date Stop Date Source Unknown if ever smoked Common Sp pa[facility]ina - [facility] Never smoked tobacco [facility] Medications Ordered Filled Start Stop Current Ordering Indication Dosage Frequency Signature Comments Components Source Medication Medication Date Date Medication? Clinician (SIG) Name Name oxybutynin 2022-0 Yes [id number] 15mg Take 1 Univers 15 mg 24 hr 8-05 tablet by ity of tablet 00:00: mouth in [place] 00 the Medical morning. Branch oxybutynin 2-0 Yes [id number] 15mg Take 1 Univers 15 mg 24 hr 8-05 tablet by ity of tablet 00:00: mouth in [place] 00 the Medical morning. Branch oxybutynin 2-0 Yes [id number] 15mg Take 1 Univers 15 mg 24 hr 8-05 tablet by ity of tablet 00:00: mouth in [place] 00 the Medical morning. Branch oxybutynin 2-0 Yes [id number] 15mg Take 1 Univers 15 mg 24 hr 8-05 tablet by ity of tablet 00:00: mouth in [place] 00 the Medical morning. Branch alendronate 2021-0 Yes [id number] 70mg Take 1 Univers 70 mg 6-14 tablet by ity of tablet 00:00: mouth [place] 00 weekly. Medical Branch alendronate 2021-0 Yes [id number] 70mg Take 1 Univers 70 mg 6-14 tablet by ity of tablet 00:00: mouth [place] 00 weekly. Medical Branch alendronate 2021-0 Yes [id number] 70mg Take 1 Univers 70 mg 6-14 tablet by ity of tablet 00:00: mouth [place] 00 weekly. Medical Branch alendronate 2021-0 Yes [id number] 70mg Take 1 Univers 70 mg 6-14 tablet by ity of tablet 00:00: mouth [place] 00 weekly. Medical Branch MELATONIN 2021-0 Yes Take by Unive rs ORAL 6-10 mouth. ity of 08:39: [place] 22 Medical Branch calcium 2021-0 Yes 1000mg Take 1,000 Un lore carbonate-v 6-10 mg by ity of itamin D3 08:39: mouth. [place] 250 22 Medical mg-3.125 Branch mcg (125 unit) per tablet MELATONIN Yes Take by Unive rs ORAL 6-10 mouth. ity of 08:39: [place] 22 Medical Branch calcium 2021-0 Yes 1000mg Take 1,000 Un lore carbonate-v 6-10 mg by ity of itamin D3 08:39: mouth. [place] 250 22 Medical mg-3.125 Branch mcg (125 unit) per tablet MELATONIN Yes Take by Unive rs ORAL 6-10 mouth. ity of 08:39: [place] [address] Medical Branch calcium Yes 1000mg Take 1,000 Un lore carbonate-v 6-10 mg by ity of itamin D3 08:39: mouth. [place] 250 22 Medical mg-3.125 Branch mcg (125 unit) per tablet MELATONIN Yes Take by Unive rs ORAL 6-10 mouth. ity of 08:39: [place] [address] Medical Branch calcium Yes 1000mg Take 1,000 Un lore carbonate-v 6-10 mg by ity of itamin D3 08:39: mouth. [place] 250 22 Medical mg-3.125 Branch mcg (125 unit) per tablet oxybutynin 2- No [id number] 10mg Take 1 Univers 10 mg 24 hr 6-10 08-05 tablet by it y of tablet 00:00: 00:00 mouth [place] 00 :00 daily. Medical Branch oxybutynin 2021- No [id number] 10mg Take 1 Univers 10 mg 24 hr 6-10 08-05 tablet by it y of tablet 00:00: 00:00 mouth [place] 00 :00 daily. Medical Branch carvediloL Yes 6.25mg Take 6.25 Univers 6.25 mg 4-08 mg by ity of tablet 09:26: mouth. [address] amLODIPine Yes 5mg Take 5 mg Un lore 5 mg tablet 4-08 by mouth. ity of 09:26: [place] [address] Medical Branch Pitavastati Yes Take by Uni vers n 2 mg Tab 4-08 mouth. ity of 09:26: [place] [address] Medical Branch carvediloL Yes 6.25mg Take 6.25 Univers 6.25 mg 4-08 mg by ity of tablet 09:26: mouth. [address] amLODIPine Yes 5mg Take 5 mg Un lore 5 mg tablet 4-08 by mouth. ity of 09:26: [address] Branch Pitavastati Yes Take by Uni vers n 2 mg Tab 4-08 mouth. ity of 09:26: [address] carvediloL 2021-0 Yes 6.25mg Take 6.25 Univers 6.25 mg 4-08 mg by ity of tablet 09:26: mouth. [address] amLODIPine 2021-0 Yes 5mg Take 5 mg Un lore 5 mg tablet 4-08 by mouth. ity of :: [address] Pitavastati 0 Yes Take by Uni vers n 2 mg Tab 4-08 mouth. ity of :: [address] carvediloL 2021-0 Yes 6.25mg Take 6.25 Univers 6.25 mg 4-08 mg by ity of tablet 09:26: mouth. [address] amLODIPine 2021-0 Yes 5mg Take 5 mg Un lore 5 mg tablet 4-08 by mouth. ity of :: [address] Pitavastati 2021-0 Yes Take by Uni vers n 2 mg Tab 4-08 mouth. ity of :: [address] calcium 2017-0 Yes 1000mg Take 1,000 Me thodi carbonate-v 5-[address] itamin D3 09:42: mouth. Hospit a 250-125 05 l mg-unit tablet melatonin-p 2017-[address] Metho di yridoxine, -[address] vit B6, 09:42: tongue. Hospita 2.5-0.5 mg 05 l tablet, sublingual co-enzyme 2017-0 Yes 100mg Take 100 Met hodi Q-10 50 mg 5-[address] capsule 09:42: mouth. Hospita 05 l calcium 2018-0 Yes 1000mg Take 1,000 Me thodi carbonate-v 5-[address] itamin D3 09:42: mouth. Hospit a 250-125 05 l mg-unit tablet melatonin-p 2017-[address] Metho di yridoxine, - under the st vit B6, 09:42: tongue. Hospita 2.5-0.5 mg 05 l tablet, sublingual co-enzyme 2017-0 Yes 100mg Take 100 Met hodi Q-10 50 mg 5-[address] capsule 09:42: mouth. Hospita 05 l melatonin-p 2016-[address] [facility] yridoxine, 02-19 under the Luke s vit B6, 12:16: tongue Medical (MELATONIN, 57 nightly. Cent er WITH B6,) 2.5-0.5 mg Subl co-enzyme 2016-0 Yes 100mg QD Take [address] Q-10 50 mg 8-22 mg by [facility]ukes capsule 12:16: mouth Medical 57 daily. Center melatonin-p 2016-[address] [facility] t yridoxine, 8- under the Luke s vit B6, 12:16: tongue Medical (MELATONIN, 57 nightly. Cent er WITH B6,) 2.5-0.5 mg Subl co-enzyme 2015-0 Yes 100mg QD Take [address] Q-10 50 mg 8-22 mg by [facility]ukes capsule 12:16: mouth Medical 57 daily. Center calcium 2015-0 Yes 1000mg Q.5D Take 1,[address] carbonate-v 8-22 mg by Lukes itamin D2 12:16: mouth 2 Medic al (CALCIUM- 57 (two) Center TAMIN D) times 500-125 daily. mg-unit Tab RED YEAST 0 Yes 600mg QD Take [address] RICE ORAL 8-22 mg by Lukes 12:16: mouth Medical 57 daily. Center traMADol 0 Yes 50mg Take [address] (ULTRAM) 50 8-22 by mouth Luke s mg tablet 12:16: every 6 Medic al 57 (six) Center hours as needed for Pain. calcium 0 Yes 1000mg Q.5D Take 1,[address] carbonate-v 8-22 mg by Lukes itamin D2 12:16: mouth 2 Medic al (CALCIUM- 57 (two) Center TAMIN D) times 500-125 daily. mg-unit Tab RED YEAST 0 Yes 600mg QD Take [address] RICE ORAL 8-22 mg by Lukes 12:16: mouth Medical 57 daily. Center traMADol 0 Yes 50mg Take [address] (ULTRAM) 50 8-22 by mouth Luke s mg tablet 12:16: every 6 Medic al 57 (six) Center hours as needed for Pain. pitavastati Yes Method i n calcium 8-06 st (LIVALO) 2 00:00: Hospita mg tablet 00 l pitavastati Yes Method i n calcium 8-06 [...] MG 00:00: mouth. Hospita tablet 00 l carvedilol Yes 6.25mg Take [address] (COREG) 6-26 tablet Lukes 6.25 MG 00:00: (6.25 mg Medica l tablet 00 total) by Center mouth 2 (two) times daily with breakfast and dinner. carvedilol Yes 6.25mg Take 6.25 Methodi (COREG) 6-[address] 6.25 MG 00:00: mouth. Hospita tablet 00 l amLODIPine Yes Hypertensio 5mg QD Take [address] (NORVASC) 5 5-11 n tablet (5 Debra es MG tablet 00:00: mg total) Med ical 00 by mouth Center daily. amLODIPine Yes 5mg Take 5 mg Me thodi (NORVASC) 5 5-[address] mg tablet 00:00: Hospita 00 l amLODIPine Yes Hypertensio 5mg QD Take 1 CHI [...] 00:00: daily. Medical tablet 00 Center omega-3 0 Yes 2g Q.5D Take [address] acid ethyl 5-06 capsules [facility]ukes esters 00:00: (2 g Medical (LOVAZA) 1 00 total) by Cent er gram mouth 2 capsule (two) times daily. omega-3 2014-0 Yes 2g Take 2 g Method i acid ethyl 5-[address] esters 00:00: Hospita (LOVAZA) 1 00 l gram capsule pitavastati Yes Hyperlipide 2mg QD Take 2 [...] Hospita (LOVAZA) 1 00 l gram capsule amLODIPine amLODIPine No 1{table QD amLODIPine Besylate 5 Besylate 5 t} Besylate 5 MG MG MG Carvedilol Carvedilol No 1{table BID Carvedilol 6.25 MG 6.25 MG t_with_ 6.25 MG food} Livalo 4 MG Livalo 4 MG No 1{table QD Livalo 4 t} MG Oxybutynin Oxybutynin 2022- No 1{table QD Oxybutynin Chloride ER Chloride ER 03-20 t} Chloride 10 MG 10 MG 00:00 ER 10 MG :00 Alendronate Alendronate 2022- No Alendronat Sodium 70 Sodium 70 03-20 e Sodium MG MG 00:00 70 MG :00 Immunizations Ordered Filled Immunization Date Status Comments Sour e Immunization Name Name Influenza High Dose 2021-07-03 Completed Unive rsity of [place] 00:00:00 [facility] Influenza High Dose 2021-07-03 Completed Unive rsity of [place] 00:00:00 [facility] Influenza High Dose 2021-07-03 Completed Unive rsity of Quad 00:00:00 [facility] Influenza High Dose 2021-07-03 Completed Unive rsity of Quad 00:00:00 [facility] SARS-COV-2 COVID-19 2021-05-09 Completed Unive rsity of MODERNA VACCINE 00:00:00 [facility] SARS-COV-2 COVID-19 2021-05-09 Completed Unive rsity of MODERNA VACCINE 00:00:00 [facility] SARS-COV-2 COVID-19 2021-05-09 Completed Unive rsity of MODERNA VACCINE 00:00:00 [place] Med ical Branch SARS-COV-2 COVID-19 2021-05-09 Completed Unive rsity of MODERNA 12+ YRS 00:00:00 [place] Med ical VACCINE Branch SARS-COV-2 COVID-19 2020-10-06 Completed Unive rsity of MODERNA VACCINE 00:00:00 [place] Med ical Branch SARS-COV-2 COVID-19 2020-10-06 Completed Unive rsity of MODERNA VACCINE 00:00:00 [place] Med ical Branch SARS-COV-2 COVID-19 2020-10-06 Completed Unive rsity of MODERNA VACCINE 00:00:00 [place] Med ical Branch SARS-COV-2 COVID-19 2020-10-06 Completed Unive rsity of MODERNA 12+ YRS 00:00:00 [place] Med ical VACCINE Branch SARS-COV-2 COVID-19 2020-09-08 Completed Unive rsity of MODERNA VACCINE 00:00:00 [place] Med ical Branch SARS-COV-2 COVID-19 2020-09-08 Completed Unive rsity of MODERNA VACCINE 00:00:00 [place] Med ical Branch SARS-COV-2 COVID-19 2020-09-08 Completed Unive rsity of MODERNA VACCINE 00:00:00 [place] Med ical Branch SARS-COV-2 COVID-19 2020-09-08 Completed Unive rsity of MODERNA 12+ YRS 00:00:00 [place] [facility] ical VACCINE Branch Vital Signs Vital Name Observation Time Observation Value Comments Source height 2022-06-19 10:00:00 63 [in_i] [facility] weight 2022-06-19 10:00:00 151.5 [lb_av] [facility] temperature 2022-06-19 10:00:00 96.8 [degF] [facility] bmi 2022-06-19 10:00:00 26.83 kg/m2 [facility] oximetry 2022-06-19 10:00:00 98 % [facility] respiratory rate 2022-06-19 10:00:00 18 /min Comm on [facility] blood pressure 2022-06-19 10:00:00 121 mm[Hg] [facility] - systolic [facility] blood pressure 2022-06-19 10:00:00 77 mm[Hg] [facility] - diastolic [facility] Systolic blood 2022-02-02 20:11:00 139 mm[Hg] Univer sity of pressure [facility] Diastolic blood 2022-02-02 20:11:00 82 mm[Hg] Unive rsity of pressure [facility] Heart rate 2022-02-02 20:11:00 70 /min [facility] Respiratory rate 2022-02-02 20:11:00 18 /min [facility] [place] [facility] Body height 2022-02-02 20:11:00 162.6 cm [facility] Body weight 2022-02-02 20:11:00 71.215 kg [facility] BMI 2022-02-02 20:11:00 26.95 kg/m2 [facility] Oxygen saturation in 2022-02-02 20:11:00 96 /min [facility] Arterial blood by [facility] Pulse oximetry Branch Procedures This patient has no known procedures. Plan of Care Planned Activity Planned Date Details Comments Source Future Scheduled 2022-06-19 COVID-19 VACCINE (#1) [facility] Test 09:37:00 [code = COVID-19 VACCINE (#1)] Future Scheduled 2022-06-19 BREAST CANCER [facility] Test 09:37:00 SCREENING [code = BREAST CANCER SCREENING] Future Scheduled 2022-06-19 COLONOSCOPY SCREENING [facility] Test 09:37:00 [code = COLONOSCOPY SCREENING] Future Scheduled 2022-06-19 SHINGLES VACCINES (1 Met [facility] Test 09:37:00 of 2) [code = SHINGLES VACCINES (1 of 2)] Future Scheduled 2022-06-19 65+ [facility]AL [facility] 09:37:00 VACCINE (1 - PCV) [code = 65+ PNEUMOCOCCAL VACCINE (1 - PCV)] Future Scheduled 2022-06-19 INFLUENZA VACCINE [facility] Test 09:37:00 [code = INFLUENZA VACCINE] Future Scheduled 2022-03-12 HEPATITIS B VACCINES Met [facility] Test 13:59:25 (1 of 3 - 3-dose series) [code = HEPATITIS B VACCINES (1 of 3 - 3-dose series)] Future Scheduled 2022-03-12 COVID-19 VACCINE (#1) [facility] Test 13:59:25 [code = COVID-19 VACCINE (#1)] Future Scheduled 2022-03-12 BREAST CANCER [facility] Hospital Test 13:59:25 SCREENING [code = BREAST CANCER SCREENING] Future Scheduled 2022-03-12 COLONOSCOPY SCREENING [facility] Test 13:59:25 [code = COLONOSCOPY SCREENING] Future Scheduled 2022-03-12 SHINGLES VACCINES (1 Met [facility] Test 13:59:25 of 2) [code = SHINGLES VACCINES (1 of 2)] Future Scheduled 2022-03-12 65+ PNEUMOCOCCAL [facility] Test 13:59:25 VACCINE (1 - PCV) [code = 65+ PNEUMOCOCCAL VACCINE (1 - PCV)] Future Scheduled 2022-03-12 INFLUENZA VACCINE Method ist Hospital Test 13:59:25 [code = INFLUENZA VACCINE] Encounters Start End Encounter Admission Attending Care Care Encounter Source Date/Time Date/Time Type Type Clinicians Facility Department ID 2022-06-19 Outpatient Luz, [facility] [id number] Common 09:37:04 [facility] [id number] [facility] 2022-10-09 2022-10-09 Outpatient R ADUM, [facility] [id number] Univers 15:00:00 15:00:00 [facility] 2022-10-09 2022-10-09 Outpatient R ADUM, [facility] [id number] Univers 13:30:00 13:30:00 ANALI pinzon [facility] 2022-06-19 2022-06-19 [facility] [id number] Co mmon 00:00:00 00:00:00 VISIT KEITH Yan PT LEVEL 3 [facility] 2022-03-12 2022-03-12 [address] Burns [facility] 1.2.840. [id number] Univers 14:00:00 15:00:00 Visit Nikko Condon [id number] [facility] [id number] [id number] Sc dical NAL [address] [facility] 2022-03-12 2022-03-12 [facility] [id number] Univers 14:00:00 14:00:00 NIKKO pinzon [facility] 2022-02-12 2022-02-12 [facility] [id number] Univers 15:00:00 15:59:43 NIKKO pinzon [facility] 2022-02-12 2022-02-12 Ancillary BurnsIvory villarufus Stanley [facility] 1.2.840. 114 [id number] Univers 15:00:00 15:59:43 Visit Nikko Condon [id number] ity [place] [id number] [id number] Sc dical NAL [address] [place] [address] 2022-02-12 2022-02-12 [facility] [id number] Univers 15:00:00 15:00:00 [facility] 2022-02-02 2022-02-02 Office [facility] [id number] Univers 15:00:00 15:38:42 Visit Anali Zacarias GRANT [id number] [place] [id number] [id number] Sc dical NAL [address] [facility] 2022-02-02 2022-02-02 Outpatient R FELICE [facility] [id number] Univers 15:00:00 15:38:42 ANALI pinzon [facility] 2022-01-29 2022-01-29 Ancillary GrantIvoryrufus Stanley [facility] 1.2.840. 114 [id number] Univers 15:00:00 16:02:07 Visit Marquita Condonchris BURNS [id number] [place] [id number] [id number] Sc dical NAL [address] [facility] 2022-01-15 2022-01-15 Outpatient [facility] [id number] Univers 16:00:00 16:51:02 NIKKO ity of [facility] 2022-01-15 2022-01-15 Ancillary Annabelle Burns [facility] 1.2.840. 114 [id number] Univers 16:00:00 16:51:02 Visit Nikko Condon [place] [id number] ity of [place] [id number] [phone] Sc dical NAL [address] [facility] 2021-12-12 2021-12-12 [facility] [id number] Univers 00:00:00 00:00:00 Anali Rell [place] [id number] [place] [id number] [id number] Sc dical NAL [address] [facility] 2021-12-11 2021-12-11 Telephone [facility] [id number] Univers 00:00:00 00:00:00 Anali Zacarias [place] [id number] [place] [id number] [id number] Sc dical NAL [address] [facility] 2021-12-08 2021-12-08 Outpatient R MATT, [facility] [id number] Univers 08:15:00 09:13:00 ANALI itrufus of [facility] 2021-12-08 2021-12-08 Office [facility] [id number] Univers 08:15:00 09:13:00 Visit Anali Zacarias [place] [id number] [place] [id number] [phone] Sc dical NAL [address] [facility] 2021-12-08 2021-12-08 [facility] [id number] Univers 00:00:00 00:00:00 Anali L [place] [id number] [place] [id number] [id number] Sc dical NAL [address] [facility] 2021-11-17 2021-11-17 Outpatient R [facility] [id number] Univers 10:30:00 10:30:00 ANALI ity of [facility] 2021-11-17 2021-11-17 Outpatient R [facility] [id number] Univers 10:30:00 10:30:00 ANALI ity [facility] 2021-11-03 2021-11-03 [facility] 1.2.840.114 [id number] Univers 09:40:15 23:59:00 Encounter Anali L [place] [id number] [place]y [place] [id number] [facility] [id number] [facility] [address] [place] 2021-11-03 2021-11-03 [facility] 1.2.840.114 [id number] Univers 09:39:13 09:39:13 Encounter Anali L [place] [id number] [place] [id number] [place] [facility] [id number] [facility] [address] 2021-11-03 2021-11-03 Outpatient R [facility] [id number] Univers 09:39:13 09:39:13 ANALI ity [facility] 2021-11-03 2021-11-03 Orders Doctor ALEXA 1.2.840.114 [id number] Univers 00:00:00 00:00:00 Only Unassigned, JONATHAN [id number] ity of [place] [facility] [id number] Roberto as [id number] [facility] 009 Branch 2021-10-19 2021-10-19 Telephone [facility] [id number] Univers 00:00:00 00:00:00 Anali L [place] [id number] [place]y [id number] [phone] Sc dical NAL [address] [facility] 2021-10-06 2021-10-06 Outpatient R [facility] [id number] [employer] 09:00:00 10:30:20 ANALI ity of [facility] 2021-10-06 2021-10-06 Office Adum, [facility] [id number] [employer] 09:00:00 10:30:20 Visit Anali BURNS [id number] ity of [place] [id number] Luis Daniel s PROFESSIO [phone] Sc dical [facility] [address] [facility] 2021-10-06 2021-10-06 Letter Doctor ALEXA [id number] [employer] 00:00:00 00:00:00 (Out) Unassigned, JONATHAN [id number] ity of [place] [facility] [id number] Roberto as [phone] [address] Results This patient has no known results.
--- NOTE | 2022-09-14 07:38 | EDPHYS ---
Physician Documentation [facility] Name: wAa Tracy Age: 67 yrs Sex: Female : 1955 Arrival Date: 09/14/2022 Time: 07:19 Bed DX3 Private MD: Siddhartha Luz ED Physician Jacob Greer Historical: - Allergies: 09/14 07:27 PENICILLINS; hb - PMHx: 07:27 Hyperlipidemia; Hypertension; overactive bladder; hb - Immunization history:: Adult Immunizations up to date. - Social history:: Smoking status: Patient denies any tobacco usage or history of. Vital Signs: 07:25 BP 161 / 87; Pulse 75; Resp 16; Temp 98.1(TE); Pulse Ox 96% on R/A; Weight 68.04 kg; hb Height 5 ft. 4 in. ; Pain 10/10; 07:25 Body Mass Index 25.75 (68.04 kg, 162.56 cm) hb 07:25 Pain Scale: Adult hb MDM: 07:29 Patient medically screened. rt Administered Medications: No medications were administered Disposition Summary: 09/14/22 07:38 Discharge Ordered Location: Home rt Condition: Stable rt Diagnosis - Acute pharyngitis, unspecified rt Followup: rt - With: Siddhartha Luz DO - When: 2 - 3 days - Reason: Forms: - Medication Reconciliation Form rt - Thank You Letter rt - Antibiotic Education rt - Prescription Opioid Use rt Signatures: Yue Johnson RN RN Jacob Greer MD MD rt
--- NOTE | 2022-09-14 07:38 | ER ---
Nurse's Notes [facility] Name: Awa Tracy Age: 67 yrs Sex: Female : 1955 Arrival Date: 09/14/2022 Time: 07:19 Bed DX3 Private MD: Siddhartha Luz Diagnosis: Acute pharyngitis, unspecified Presentation: 09/14 07:25 Chief complaint: Sore throat x 10 days, blisters on side of tongue x 3 days. On Bactrim hb day 4. Coronavirus screen: At this time, the client does not indicate any symptoms associated with coronavirus-19. Ebola Screen: No symptoms or risks identified at this time. Initial Sepsis Screen: Does the patient meet any 2 criteria? No. Patient's initial sepsis screen is negative. Does the patient have a suspected source of infection? No. Patient's initial sepsis screen is negative. Risk Assessment: Do you want to hurt yourself or someone else? Patient reports no desire to harm self or others. Onset of symptoms was September 04, 2022. 07:25 Method Of Arrival: Ambulatory hb 07:25 Acuity: NICHOL 4 hb Historical: - Allergies: 07:27 PENICILLINS; hb - PMHx: 07:27 Hyperlipidemia; Hypertension; overactive bladder; hb - Immunization history:: Adult Immunizations up to date. - Social history:: Smoking status: Patient denies any tobacco usage or history of. Vital Signs: 07:25 BP 161 / 87; Pulse 75; Resp 16; Temp 98.1(TE); Pulse Ox 96% on R/A; Weight 68.04 kg; hb Height 5 ft. 4 in. ; Pain 10/10; 07:25 Body Mass Index 25.75 (68.04 kg, 162.56 cm) hb 07:25 Pain Scale: Adult hb ED Course: 07:19 Patient arrived in ED. mr 07:19 Siddhartha Luz DO is Private Physician. mr 07:27 Triage completed. hb 07:27 Arm band placed on. hb 07:28 Jacob Greer MD is Attending Physician. rt 07:37 Siddhartha Luz DO is Referral Physician. rt Administered Medications: No medications were administered Outcome: 07:38 Discharge ordered by . rt Signatures: Toma Luo Heather, RN RN Jacob Greer, MD KENDALL rt
[2022-09-14] MEDS ORDERED: dexAMETHasone 10 MG/ML VIAL ONE (07:46)
[2022-09-14] MEDS ORDERED: LIDOCAINE HCL JELLY 2% 6 ML SYRINGE TOP ONE (07:46)
[2022-09-14 08:37] VITALS: BP 161/87; TEMP 98.1; O2SAT 96
== END 2022-09-14 07:53 | disposition home or self-care (01) ==
LOC: ER 07:14
DX: J02.9 Acute pharyngitis, unspecified (principal); Z88.0 Allergy status to penicillin
CPT/HCPCS: 96372; 99283; J1100

== ENCOUNTER 2022-09-16 05:28 | Emergency (ER) | payer OTHER ==
--- OUTSIDE RECORDS SUMMARY | 2022-09-16 05:31 | XMS REPORT | Continuity of Care Document ---
:1955 Author Organization [facility] t Address [address] [place] [address] Care Team Providers Name Role Phone Asked, No Pcp Primary Care Physician Unavailable Siddhartha Luz Attending Clinician Unavailable ANALI VIVEROS Attending Clinician Unavailable Annabelle Burns PT Attending Clinician Unavailable Nikko Herrera MD Attending Clinician NIKKO HERRERA Attending Clinician Unavailable Anali Viveros MD Attending Clinician Doctor Unassigned, [place] Attending Clinician Unavailable Payers Payer Name Policy Type Policy Number Effective Date Expiration Date Jn VEGA TRUE CHOICE [id number] 2021 MEDICARE 00:00:00 Problems Condition Condition Condition [...] Luke s pain pain 00:00: Medical 00 [place] Neuropathy Neuropathy Disease [facility] [place] Diarrhea [facility] [place] Fatigue Fatigue Disease [facility] [place] Hair loss Hair loss Disease [facility] Medical 00 [place] Multiple Multiple Disease Active [facility] joint pain joint pain 02-03 Rupali kes 00:00: Medical 00 [place] [id number] Diverticul Problem Co mmon osis large Spirit intestine - CHI w/o perforatio [facility] n or Medical abscess Center w/o bleeding [id number] Age-relate Problem Com mon d Spirit osteoporos - [facility] is without [facility] pathologic Medica l al Center fracture [id number] Mixed Problem Common hyperlipid Spirit emia - [facility] [id number] Overactive Problem Co mmon bladder Spirit - [facility] [id number] Benign Problem Common essential Spirit HTN - [facility] [id number] Nonalcohol Problem C ommon ic fatty Spirit liver - CH[facility] disease [facility] Allergies, Adverse Reactions, Alerts Allergy Allergy Status [...] Hospita reaction 00 l s to drug Penicill Propensi Active Rash [facility] adverse 00:00: Medical reaction 00 Center s Grapefru Propensi Active Rash Method i it ty to 08-26 [facility] Extract adverse 00:00: Hospita reaction 00 l s to drug penicill penicill Active Unknown Commo n in V in V Spirit [facility] Family History Family Member Diagnosis Comments Start Date Stop Date Source Natural brother Diabetes [facility] Natural brother Heart disease [facility] Natural brother Cirrhosis [facility] Natural brother Cancer [facility] Natural father Mental illness [facility] Natural mother Cancer [facility] Natural mother Osteoporosis [facility] Natural sister Diabetes [facility] Natural sister Lupus [facility] Natural sister Cancer [facility] Natural sister Osteoporosis [facility] Natural sister Rheumatologic disease [facility] Social History Social Habit Start Date Stop Date Quantity Comments Source Exposure to 2022-01-23 2022-02-02 Not sure [facility]-CoV-2 00:00:00 14:47:00 [facility] (event) Branch Alcohol intake 2016-02-22 2016-02-22 [facility] non-drinker of Medical Ce nter alcohol (finding) Tobacco use and 2012-09-03 2012-09-[address] [facility] exposure 00:00:00 00:00:00 [facility] Sex Assigned At [address] 1955 [facility] 00:00:00 00:00:00 Medical Center Smoking Status Start Date Stop Date Source Unknown if ever smoked Common Sp paulina - [facility] Never smoked tobacco [facility] Medications Ordered Filled Start Stop Current Ordering Indication Dosage Frequency Signature Comments Components Source Medication Medication Date Date Medication? Clinician (SIG) Name Name oxybutynin 2-0 Yes [id number] 15mg Take 1 Univers 15 mg 24 hr 8-05 tablet by ity of tablet 00:00: mouth in [place] 00 the Medical morning. Branch oxybutynin 2-0 Yes [id number] 15mg Take 1 Univers 15 mg 24 hr 8-05 tablet by ity of tablet 00:00: mouth in [place] the Medical morning. Branch oxybutynin 2-0 Yes [id number] 15mg Take 1 Univers 15 mg 24 hr 8-05 tablet by ity of tablet 00:00: mouth in [place] the Medical morning. Branch oxybutynin 2-0 Yes [id number] 15mg Take 1 Univers 15 mg 24 hr 8-05 tablet by ity of tablet 00:00: mouth in [place] the morning. Branch alendronate 2021-0 Yes [id number] 70mg Take 1 Univers 70 mg 6-14 tablet by ity of tablet 00:00: mouth [place] 00 weekly. Medical Branch alendronate 2021-0 Yes [id number] 70mg Take 1 Univers 70 mg 6-14 tablet by ity of tablet 00:00: mouth [place] 00 weekly. Medical Branch alendronate 2021-0 Yes [id number] 70mg Take 1 Univers 70 mg 6-14 tablet by ity of tablet 00:00: mouth [place] 00 weekly. Medical Branch alendronate 2021-0 Yes [id number] 70mg Take 1 Univers 70 mg 6-14 tablet by ity of tablet 00:00: mouth [place] 00 weekly. Medical Branch MELATONIN 2021-0 Yes Take by Unive rs ORAL 6-10 mouth. ity of 08:39: [place] [address] Medical Branch calcium 2021-0 Yes 1000mg Take 1,000 Un lore carbonate-v 6-10 mg by ity of itamin D3 08:39: mouth. [place] 250 22 Medical mg-3.125 Branch mcg (125 unit) per tablet MELATONIN 2021-0 Yes Take by Unive rs ORAL 6-10 mouth. ity of 08:39: [address] Branch calcium 2021-0 Yes 1000mg Take 1,000 Un lore carbonate-v 6-10 mg by ity of itamin D3 08:39: mouth. [place] 250 22 Medical mg-3.125 Branch mcg (125 unit) per tablet MELATONIN Yes Take by Unive rs ORAL 6-10 mouth. ity of 08:39: [place] [address] Medical Branch calcium 0 Yes 1000mg Take 1,000 Un lore carbonate-v 6-10 mg by ity of itamin D3 08:39: mouth. [place] 250 22 Medical mg-3.125 Branch mcg (125 unit) per tablet MELATONIN Yes Take by Unive rs ORAL 6-10 mouth. ity of 08:39: [place] [address] Medical Branch calcium Yes 1000mg Take 1,000 Un lore carbonate-v 6-10 mg by ity of itamin D3 08:39: mouth. [place] 250 22 Medical mg-3.125 Branch mcg (125 unit) per tablet oxybutynin 2021- No [id number] 10mg Take 1 Univers 10 mg 24 hr 6-10 08-05 tablet by it y of tablet 00:00: 00:00 mouth [place] 00 :00 daily. Medical Branch oxybutynin 2021- No [id number] 10mg Take 1 Univers 10 mg 24 hr 6-10 08-05 tablet by it y of tablet 00:00: 00:00 mouth [place] 00 :00 daily. Medical Branch carvediloL Yes 6.25mg Take 6.25 Univers 6.25 mg 4-08 mg by ity of tablet 09:26: mouth. [place] [address] Medical Branch amLODIPine Yes 5mg Take 5 mg Un lore 5 mg tablet 4-08 by mouth. ity of 09:26: [place] [address] Medical Branch Pitavastati Yes Take by Uni vers n 2 mg Tab 4-08 mouth. ity of 09:26: [place] [address] Medical Branch carvediloL Yes 6.25mg Take 6.25 Univers 6.25 mg 4-08 mg by ity of tablet 09:26: mouth. [place] [address] Medical Branch amLODIPine 0 Yes 5mg Take 5 mg Un lore 5 mg tablet 4-08 by mouth. ity of 09:26: [place] [address] Medical Branch Pitavastati Yes Take by Uni vers n 2 mg Tab 4-08 mouth. ity of 09:26: [place] [address] Medical Branch carvediloL 2022-0 Yes 6.25mg Take 6.25 Univers 6.25 mg 4-08 mg by ity of tablet 09:26: mouth. [address] amLODIPine 2021-0 Yes 5mg Take 5 mg Un lore 5 mg tablet 4-08 by mouth. ity of 09:26: [address] Pitavastati 0 Yes Take by Uni vers n 2 mg Tab 4-08 mouth. ity of 09:26: [address] carvediloL 2021-0 Yes 6.25mg Take 6.25 Univers 6.25 mg 4-08 mg by ity of tablet 09:26: mouth. [address] amLODIPine 2021-0 Yes 5mg Take 5 mg Un lore 5 mg tablet 4-08 by mouth. ity of 09:: [address] Pitavastati 0 Yes Take by Un lore n 2 mg Tab 4-08 mouth. ity of :26: [address] calcium 2018-0 Yes 1000mg Take 1,000 Me thodi carbonate-v 5-[address] itamin D3 09:42: mouth. Hospit a 250-125 05 l mg-unit tablet calcium 2018-0 Yes 1000mg Take 1,000 Me thodi carbonate-v 5-[address] itamin D3 09:42: mouth. Hospit a 250-125 05 l mg-unit tablet melatonin-p 2018-[address] Metho di yridoxine, 5-[address] vit B6, 09:42: tongue. Hospita 2.5-0.5 mg 05 l tablet, sublingual co-enzyme 2018-0 Yes 100mg Take 100 Met hodi Q-10 50 mg 5-[address] capsule 09:42: mouth. Hospita 05 l melatonin-p 2018-[address] Metho di yridoxine, 5-[address] vit B6, 09:42: tongue. Hospita 2.5-0.5 mg 05 l tablet, sublingual co-enzyme 2018-0 Yes 100mg Take 100 Met hodi Q-10 50 mg 5-[address] capsule 09:42: mouth. Hospita 05 l calcium 2018-0 Yes 1000mg Take 1,000 Me thodi carbonate-v 5-[address] itamin D3 09:42: mouth. Hospit a 250-125 05 l mg-unit tablet melatonin-p 2017-[address] Metho di yridoxine, 5-[address] vit B6, 09:42: tongue. Hospita 2.5-0.5 mg 05 l tablet, sublingual co-enzyme 2017-0 Yes 100mg Take 100 Met hodi Q-10 50 mg 5-[address] capsule 09:42: mouth. Hospita 05 l melatonin-p 2015-[address] [facility] yridoxine, 8-22 under the Luke s vit B6, 12:16: tongue Medical (MELATONIN, 57 nightly. Cent er WITH B6,) 2.5-0.5 mg Subl co-enzyme 2015-0 Yes 100mg QD Take [address] Q-10 50 mg 8-22 mg by [facility] capsule 12:16: mouth Medical 57 daily. Center calcium 2016-0 Yes 1000mg Q.5D Take 1,[address] carbonate-v 8-22 mg by [facility]ukes itamin D2 12:16: mouth 2 Medic al (CALCIUM- 57 (two) Center TAMIN D) times 500-125 daily. mg-unit Tab RED YEAST 2016-0 Yes 600mg QD Take [address] RICE ORAL 8-22 mg by [facility] 12:16: mouth Medical 57 daily. Center traMADol 2015-0 Yes 50mg Take [address] (ULTRAM) 50 8-22 by mouth Luke s mg tablet 12:16: every 6 Medic al 57 (six) Center hours as needed for Pain. melatonin-p 2015-[address] [facility] t yridoxine, 8-22 under the Luke s vit B6, 12:16: tongue Medical (MELATONIN, 57 nightly. Cent er WITH B6,) 2.5-0.5 mg Subl co-enzyme 2015-0 Yes 100mg QD Take [address] Q-10 50 mg 8-22 mg by [facility]ukes capsule 12:16: mouth Medical 57 daily. Center calcium 2016-0 Yes 1000mg Q.5D Take 1,[address] carbonate-v 8-22 mg by [facility]ukes itamin D2 12:16: mouth 2 Medic al (CALCIUM- 57 (two) Center TAMIN D) times 500-125 daily. mg-unit Tab RED YEAST 2016-0 Yes 600mg QD Take [address] RICE ORAL 8-22 mg by [facility]ukes 12:16: mouth Medical 57 daily. Center traMADol 2016-0 Yes 50mg Take [address] (ULTRAM) 50 8-22 by mouth Luke s mg tablet 12:16: every 6 Medic al 57 (six) Center hours as needed for Pain. melatonin-p Yes QD Place [facility] t [...] by [facility]ukes 12:16: mouth Medical 57 daily. Strang traMADol Yes 50mg Take 50 mg CHI [...] tablet 00 l carvedilol Yes 6.25mg Take 6.25 Methodi (COREG) 6-[address] 6.25 MG 00:00: mouth. Hospita tablet 00 l carvedilol Yes 6.25mg Take 6.25 Methodi (COREG) 6-[address] 6.25 MG 00:00: mouth. Hospita tablet 00 l carvedilol Yes 6.25mg Take [address] (COREG) 6-26 tablet [facility]ukes 6.25 MG 00:00: (6.25 mg Medica l tablet 00 total) by Center mouth 2 (two) times daily with breakfast and dinner. carvedilol Yes 6.25mg Take [address] (COREG) 6-26 tablet [facility]ukes 6.25 MG 00:00: (6.25 mg Medica l tablet 00 total) by Center mouth 2 (two) times daily with breakfast and dinner. amLODIPine Yes Hypertensio 5mg QD Take [address] (NORVASC) 5 5-11 n tablet (5 Debra es MG tablet 00:00: mg total) Med ical 00 by mouth Center daily. amLODIPine Yes 5mg Take 5 mg Me thodi (NORVASC) 5 5-[address] mg tablet 00:00: Hospita 00 l amLODIPine Yes 5mg Take 5 mg Me thodi (NORVASC) 5 5-[address] mg tablet 00:00: Hospita 00 l amLODIPine Yes 5mg Take 5 mg Me thodi (NORVASC) 5 5-[address] mg tablet 00:00: Hospita 00 l amLODIPine Yes Hypertensio 5mg QD Take [address] (NORVASC) 5 5-11 n tablet (5 Debra es MG tablet 00:00: mg total) Med ical 00 by mouth Center daily. amLODIPine Yes Hypertensio 5mg QD Take [address] (NORVASC) 5 5-11 n tablet (5 Debra es MG tablet 00:00: mg total) Med ical 00 by mouth Center daily. pitavastati Yes Hyperlipide 2mg QD Take [address] n (LIVALO) 5-06 mary by mouth [facility]ukes 2 mg Tab 00:00: daily. Medical tablet 00 Center omega-3 2014- Yes 2g Q.5D Take [address] acid ethyl 5-06 capsules [facility]ukes esters 00:00: (2 g Medical (LOVAZA) 1 00 total) by Cent er gram mouth 2 capsule (two) times daily. omega-3 2015-0 Yes 2g Take 2 g Method i acid ethyl 5-[address] esters 00:00: Hospita (LOVAZA) 1 00 l gram capsule omega-3 2015-0 Yes 2g Take 2 g Method i acid ethyl 5-[address] esters 00:00: Hospita (LOVAZA) 1 00 l gram capsule omega-3 2015-0 Yes 2g Take 2 g Method i acid ethyl 5-[address] esters 00:00: Hospita (LOVAZA) 1 00 l gram capsule pitavastati 2014-0 Yes Hyperlipide 2mg QD Take [address] n (LIVALO) 5-06 mary by mouth [facility]ukes 2 mg Tab 00:00: daily. Medical tablet 00 Strang omega-3 2014-0 Yes 2g Q.5D Take [address] acid ethyl 5-06 capsules [facility]ukes esters 00:00: (2 g Medical (LOVAZA) 1 00 total) by Cent er gram mouth 2 capsule (two) times daily. pitavastati 2014-0 Yes Hyperlipide 2mg QD Take [address] n (LIVALO) 5-06 mary by mouth [facility]ukes 2 mg Tab 00:00: daily. Medical tablet 00 [place]ang omega-3 2015-0 Yes 2g Q.5D Take [address] acid ethyl 5-06 capsules [facility]ukes esters 00:00: (2 g Medical (LOVAZA) 1 00 total) by Cent er gram mouth 2 capsule (two) times daily. amLODIPine amLODIPine No 1{table QD amLODIPine Besylate [...] Immunizations Ordered Filled Immunization Date Status Comments [facility] e Immunization Name Name Influenza High Dose 2021-07-03 Completed Unive rsity of [place] 00:00:00 [facility] Influenza High Dose 2021-07-03 Completed Unive rsity of [place] 00:00:00 [facility] Influenza High Dose 2021-07-03 Completed Unive rsity of Quad 00:00:00 [facility] Influenza High Dose 2021-07-03 Completed Unive rsity of Quad 00:00:00 [facility] SARS-COV-2 COVID-19 2021-05-09 Completed Unive rsity of MODERNA VACCINE 00:00:00 [facility] ical Branch SARS-COV-2 COVID-19 2021-05-09 Completed Unive rsity of MODERNA VACCINE 00:00:00 [facility] ical Branch SARS-COV-2 COVID-19 2021-05-09 Completed Unive rsity of MODERNA VACCINE 00:00:00 [facility] ical Branch SARS-COV-2 COVID-19 2021-05-09 Completed Unive rsity of MODERNA 12+ YRS 00:00:00 [place] [facility] ical VACCINE Branch SARS-COV-2 COVID-19 2020-10-06 Completed Unive rsity of MODERNA VACCINE 00:00:00 [place] Med ical Branch SARS-COV-2 COVID-19 2020-10-06 Completed Unive rsity of MODERNA VACCINE 00:00:00 [place] [facility] ical Branch SARS-COV-2 COVID-19 2020-10-06 Completed Unive rsity of MODERNA VACCINE 00:00:00 [place] Med ical Branch SARS-COV-2 COVID-19 2020-10-06 Completed Unive rsity of MODERNA 12+ YRS 00:00:00 [place] [facility] ical VACCINE Branch SARS-COV-2 COVID-19 2020-09-08 Completed Unive rsity of MODERNA VACCINE 00:00:00 [place] [facility] ical Branch SARS-COV-2 COVID-19 2020-09-08 Completed Unive rsity of MODERNA VACCINE 00:00:00 [place] [facility] ical Branch SARS-COV-2 COVID-19 2020-09-08 Completed Unive rsity of MODERNA VACCINE 00:00:00 [facility] ical Branch SARS-COV-2 COVID-19 2020-09-08 Completed Unive rsity of MODERNA 12+ YRS 00:00:00 [facility] ical VACCINE Branch Vital Signs Vital Name Observation Time Observation Value Comments Source height 2022-06-19 10:00:00 63 [in_i] [facility] weight 2022-06-19 10:00:00 151.5 [lb_av] [facility] temperature 2022-06-19 10:00:00 96.8 [degF] [facility] bmi 2022-06-19 10:00:00 26.83 kg/m2 [facility] oximetry 2022-06-19 10:00:00 98 % [facility] respiratory rate 2022-06-19 10:00:00 18 /min Comm on [facility] blood pressure 2022-06-19 10:00:00 121 mm[Hg] [facility] systolic [facility] blood pressure 2022-06-19 10:00:00 77 mm[Hg] [facility] diastolic [facility] Systolic blood 2022-02-02 20:11:00 139 mm[Hg] Univer sity of [facility] Diastolic blood 2022-02-02 20:11:00 82 mm[Hg] Unive rsity of pressure [facility] Heart rate 2022-02-02 20:11:00 70 /min [facility] Respiratory rate 2022-02-02 20:11:00 18 /min [facility] Body height 2022-02-02 20:11:[address] [facility] Body weight 2022-02-02 20:11:[address] [facility] BMI 2022-02-02 20:11:00 26.95 kg/m2 [facility] Oxygen saturation in 2022-02-02 20:11:00 96 /min [facility] Arterial blood by [facility] Pulse oximetry Branch Procedures This patient has no known procedures. Plan of Care Planned Activity Planned Date Details Comments Source Future Scheduled 2022-06-19 COVID-19 VACCINE (#1) [facility] Test 09:37:00 [code = COVID-19 VACCINE (#1)] Future Scheduled 2022-06-19 BREAST CANCER [facility] Test 09:37:00 SCREENING [code = BREAST CANCER SCREENING] Future Scheduled 2022-06-19 COLONOSCOPY SCREENING [facility] Test 09:37:00 [code = COLONOSCOPY SCREENING] Future Scheduled 2022-06-19 SHINGLES VACCINES (1 Met [facility] Test 09:37:00 of 2) [code = SHINGLES VACCINES (1 of 2)] Future Scheduled 2022-06-19 65+ [facility]OCOCCAL [facility] Test 09:37:00 VACCINE (1 - PCV) [code = 65+ PNEUMOCOCCAL VACCINE (1 - PCV)] Future Scheduled 2022-06-19 INFLUENZA VACCINE [facility] Test 09:37:00 [code = INFLUENZA VACCINE] Future Scheduled 2022-06-19 COVID-19 VACCINE (#1) [facility] Test 09:37:00 [code = COVID-19 VACCINE (#1)] Future Scheduled 2022-06-19 BREAST CANCER [facility] Test 09:37:00 SCREENING [code = BREAST CANCER SCREENING] Future Scheduled 2022-06-19 COLONOSCOPY SCREENING [facility] Test 09:37:00 [code = COLONOSCOPY SCREENING] Future Scheduled 2022-06-19 SHINGLES VACCINES (1 Met [facility] [place] [facility] Test 09:37:00 of 2) [code = SHINGLES VACCINES (1 of 2)] Future Scheduled 2022-06-19 65+ [facility]OCOCCAL [facility] Test 09:37:00 VACCINE (1 - PCV) [code = 65+ PNEUMOCOCCAL VACCINE (1 - PCV)] Future Scheduled 2022-06-19 INFLUENZA VACCINE [facility] Test 09:37:00 [code = INFLUENZA VACCINE] Future Scheduled 2022-03-12 HEPATITIS B VACCINES Met [facility] [place] [facility] Test 13:59:25 (1 of 3 - 3-dose series) [code = HEPATITIS B VACCINES (1 of 3 - 3-dose series)] Future Scheduled 2022-03-12 COVID-19 VACCINE (#1) [facility] [place] [facility] Test 13:59:25 [code = COVID-19 VACCINE (#1)] Future Scheduled 2022-03-12 BREAST CANCER [facility] Test 13:59:25 SCREENING [code = BREAST CANCER SCREENING] Future Scheduled 2022-03-12 COLONOSCOPY SCREENING [facility] [place] [facility] Test 13:59:25 [code = COLONOSCOPY SCREENING] Future Scheduled 2022-03-12 SHINGLES VACCINES (1 Met [facility] Test 13:59:25 of 2) [code = SHINGLES [...] Type Clinicians Facility Department ID 2022-06-19 Outpatient PRINCESS Luz [facility] [id number] Common 09:37:04 [facility] [id number] [facility] 2022-10-09 2022-10-09 Outpatient Telly VIVEROS [facility] [id number] Univers 15:00:00 15:00:00 ANALI pinzon [facility] 2022-10-09 2022-10-09 Outpatient Telly VIVEROS [facility] [id number] Univers 13:30:00 13:30:00 ANALI [facility] 2022-06-19 2022-06-19 OFFICE [facility] [id number] Co mmon 00:00:00 00:00:00 VISIT NEW Spir it PT LEVEL 3 [facility] 2022-03-12 2022-03-12 Ancillary Annabelle Burns [facility] 1.2.840. [id number] Univers 14:00:00 15:00:00 [id number] [id number] Luis Daniel [id number] [facility] [address] 2022-03-12 2022-03-12 Outpatient Telly HERRERA [facility] [id number] Univers 14:00:00 14:00:00 NIKKO pinzon [facility] [place] [facility] 2022-02-12 2022-02-12 [facility] [id number] Univers 15:00:00 15:59:43 NIKKO pinzon [facility] 2022-02-12 2022-02-12 Ancillary GrantIvoryrufus Stanley [facility] 1.2.840. 114 [id number] Univers 15:00:00 15:59:43 Visit Nikko Herrera [id number] [place]y [id number] [id number] Wy dical NAL [address] [facility] 2022-02-12 2022-02-12 [facility] [id number] Univers 15:00:00 15:00:00 NIKKO pinzon [facility] 2022-02-02 2022-02-02 Outpatient R KADY [facility] [id number] Univers 15:00:00 15:38:42 ANALI pinzon [facility] 2022-02-02 2022-02-02 [facility] [id number] Univers 15:00:00 15:38:42 Visit Anali BURNS [id number] [facility] [id number] [phone] Wy dical NAL [address] [facility] 2022-01-29 2022-01-29 Ancillary Annabelle Burns [facility] 1.2.840. 114 [id number] Univers 15:00:00 16:02:07 Visit Nikko Herrera [id number] [id number] [id number] Wy dical NAL [address] [facility] 2022-01-15 2022-01-15 Outpatient R ROSEANNA [facility] [id number] Univers 16:00:00 16:51:02 NIKKO itrufus [facility] [place] [facility] 2022-01-15 2022-01-15 Ancillary Annabelle Burns [facility] 1.2.840. 114 [id number] Univers 16:00:00 16:51:02 Visit Nikko Herrera [id number] [id number] [phone] Wy dical NAL [address] [facility] 2021-12-12 2021-12-12 [facility]ill [facility] [id number] Univers 00:00:00 00:00:00 Anali Zacarias [place] [id number] [place]y [id number] [phone] Wy dical NAL [address] [facility] 2021-12-11 2021-12-11 Telephone [facility] [id number] Univers 00:00:00 00:00:00 Anali L [place] [id number] [place]y [id number] [id number] Wy dical NAL [address] [facility] 2021-12-08 2021-12-08 Outpatient R AD, [facility] [id number] Univers 08:15:00 09:13:00 ANALI ity [facility] 2021-12-08 2021-12-08 Office [facility] [id number] Univers 08:15:00 09:13:00 Visit Anali Zacarias [place] [id number] [place]y [place] [id number] [phone] Wy dical NAL [address] [facility] 2021-12-08 2021-12-08 [facility]ill [facility] 1.2.840.114 [id number] Univers 00:00:00 00:00:00 Anali Zacarias [place] [id number] [place]y [place] [id number] [id number] Wy dical NAL [address] [facility] 2021-11-17 2021-11-17 Outpatient R ADUM, [facility] [id number] Univers 10:30:00 10:30:00 ANALI ity [facility] 2021-11-17 2021-11-17 Outpatient R ADUM, [facility] [id number] Univers 10:30:00 10:30:00 ANALI ity [facility] 2021-11-03 2021-11-03 Hospital [facility] [id number] Univers 09:40:15 23:59:00 Encounter Anali [place] [id number] [facility] [id number] [id number] [facility] [address] [place] 2021-11-03 2021-11-03 [facility] [id number] Univers 09:39:13 09:39:13 Encounter Anali BURNS [id number] ity of [facility] [id number] [phone] [facility] [address] [place] 2021-11-03 2021-11-03 Outpatient [facility] [id number] Univers 09:39:13 09:39:13 ANALI ity [facility] 2021-11-03 2021-11-03 Orders Doctor ALEXA [id number] Univers 00:00:00 00:00:00 Only Unassigned, JONATHAN [id number] ity of [facility] [id number] Roberto as [phone] [facility] [address] 2021-10-19 2021-10-19 Telephone [facility] [id number] Univers 00:00:00 00:00:00 Anali GONZALEZTON [id number] ity of [facility] [id number] [phone] Wy dical NAL [address] [facility] 2021-10-06 2021-10-06 Outpatient [facility] [id number] Univers 09:00:00 10:30:20 ANALI ity of [facility] 2021-10-06 2021-10-06 Office [facility] [id number] Univers 09:00:00 10:30:20 Visit Anali GONZALEZTON [id number] ity of [facility] [id number] [phone] Wy dical NAL [address] [facility] 2021-10-06 2021-10-06 Letter Doctor ALEXA [id number] Univers 00:00:00 00:00:00 (Out) Unassigned, JONATHAN [id number] ity of [place] [facility] [id number] Roberto as [phone] [place] [address] Branch Results This patient has no known results.
--- NOTE | 2022-09-16 05:48 | EDPHYS ---
Physician Documentation [facility] Name: Awa Tracy Age: 67 yrs Sex: Female : 1955 Arrival Date: 09/16/2022 Time: 05:31 Bed 10 Private MD: ED Physician Gary Irizarry Historical: - Allergies: 09/16 05:44 PENICILLINS; kl - Home Meds: 05:44 alendronate 70 mg Oral tab 1 tab once wkly [Active]; amlodipine 5 mg tab [Active]; kl carvedilol 6.25 mg Oral tab [Active]; Livalo 2 mg Oral tab 1 tab once daily [Active]; oxybutynin chloride 10 mg Oral tab [Active]; - PMHx: 05:44 Hyperlipidemia; Hypertension; overactive bladder; kl - Immunization history:: Adult Immunizations up to date. - Social history:: Smoking status: Patient denies any tobacco usage or history of. Vital Signs: 05:42 BP 154 / 92; Pulse 82; Resp 20; Temp 98.1(TE); Pulse Ox 97% on R/A; Weight 68.04 kg kl (R); Height 5 ft. 4 in. ; Pain 10; 05:42 Body Mass Index 25.75 (68.04 kg, 162.56 cm) 05:42 Pain Scale: Adult kl MDM: 05:46 Patient medically screened. ms3 Administered Medications: No medications were administered Disposition Summary: 09/16/22 05:48 Discharge Ordered Location: Home ms3 Condition: Stable ms3 Diagnosis - Candidal stomatitis ms3 Followup: ms3 - With: Private Physician - When: 2 - 3 days - Reason: Recheck today's complaints Forms: - Medication Reconciliation Form ms3 - Thank You Letter ms3 - Antibiotic Education ms3 - Prescription Opioid Use ms3 Signatures: Rimma Torres RN RN Gary Liu DO DO ms3
--- NOTE | 2022-09-16 05:48 | ER ---
Nurse's Notes [facility] Name: Awa Tracy Age: 67 yrs Sex: Female : 1955 Arrival Date: 09/16/2022 Time: 05:31 Bed 10 Private MD: Diagnosis: Candidal stomatitis Presentation: 09/16 05:42 Chief complaint: Patient states: mouth sores x 3 days taking medication for strep and kl mouth sores seen in ER given RX for Bactrim also seen by PCP and [facility] outpatient r. Coronavirus screen: Vaccine status: Patient reports receiving the 2nd dose of the covid vaccine. Ebola Screen: Patient negative for fever greater than or equal to 101.5 degrees Fahrenheit, and additional compatible Ebola Virus Disease symptoms. Initial Sepsis Screen: Does the patient meet any 2 criteria? No. Patient's initial sepsis screen is negative. Does the patient have a suspected source of infection? No. Patient's initial sepsis screen is negative. Risk Assessment: Do you want to hurt yourself or someone else? Patient reports no desire to harm self or others. 05:42 Method Of Arrival: Ambulatory kl 05:42 Acuity: NICHOL 4 kl Triage Assessment: 05:47 General: Appears uncomfortable, well groomed, well developed, Behavior is calm, kl cooperative. Pain: Complains of pain in mouth Pain currently is 10 out of 10 on a pain scale. Quality of pain is described as burning. EENT: white film on tongue. Historical: - Allergies: 05:44 PENICILLINS; kl - Home Meds: 05:44 alendronate 70 mg Oral tab 1 tab once wkly [Active]; amlodipine 5 mg tab [Active]; kl carvedilol 6.25 mg Oral tab [Active]; Livalo 2 mg Oral tab 1 tab once daily [Active]; oxybutynin chloride 10 mg Oral tab [Active]; - PMHx: 05:44 Hyperlipidemia; Hypertension; overactive bladder; kl - Immunization history:: Adult Immunizations up to date. - Social history:: Smoking status: Patient denies any tobacco usage or history of. Vital Signs: 05:42 BP 154 / 92; Pulse 82; Resp 20; Temp 98.1(TE); Pulse Ox 97% on R/A; Weight 68.04 kg kl (R); Height 5 ft. 4 in. ; Pain 04/09; 05:42 Body Mass Index 25.75 (68.04 kg, 162.56 cm) 05:42 Pain Scale: Adult ED Course: 05:31 Patient arrived in ED. [id number] 05:34 Gary Irizarry DO is Attending Physician. ms3 05:44 Triage completed. kl Administered Medications: No medications were administered Outcome: 05:48 Discharge ordered by MD. ms3 Signatures: Rimma Torres RN RN Gary Liu DO DO ms3 Adeola Ray [email or web address]
[2022-09-16] MEDS ORDERED: MAGNES/ALUMIN/SIMET 30ML UCUP ONE (05:51)
[2022-09-16] MEDS ORDERED: LIDOCAINE VISCOUS 2% SOLN 15 ML UDC ONE (05:51)
[2022-09-16] MEDS ORDERED: NYSTATIN 500,000 UNIT/5 ML UDC ONE (05:58)
[2022-09-16 06:50] VITALS: TEMP 98.1
[2022-09-16 06:51] VITALS: BP 138/76; O2SAT 96
== END 2022-09-16 06:12 | disposition home or self-care (01) ==
LOC: ER 05:28
DX: B37.0 Candidal stomatitis (principal); K13.79 Other lesions of oral mucosa; Z88.0 Allergy status to penicillin; E78.5 Hyperlipidemia, unspecified; I10 Essential (primary) hypertension; N32.81 Overactive bladder
CPT/HCPCS: 99283

== ENCOUNTER 2022-09-17 16:00 | Emergency (ER) | payer OTHER ==
--- OUTSIDE RECORDS SUMMARY | 2022-09-17 16:09 | XMS REPORT | Continuity of Care Document ---
:1955 Author Organization [facility] t Address [address] [facility] [address] [place] [address] Care Team Providers Name Role Phone Asked, No Pcp Primary Care Physician Unavailable Siddhartha Luz Attending Clinician Unavailable ANALI VIVEROS Attending Clinician Unavailable Annabelle Burns PT Attending Clinician Unavailable Nikko Herrera MD Attending Clinician NIKKO HERRERA Attending Clinician Unavailable Anali Viveros MD Attending Clinician Doctor Unassigned, [place] Attending Clinician Unavailable Payers Payer Name Policy Type Policy Number Effective Date Expiration Date Jn VEGA TRUE CHOICE [id number] MEDICARE 00:00:00 Problems Condition Condition Condition [...] Luke s pain pain 00:00: Medical 00 Saline Neuropathy Neuropathy Disease [facility] Saline Diarrhea [facility] 00 Saline Fatigue Fatigue Disease [facility] 00 Saline Hair loss Hair loss Disease [facility] 00 Saline Multiple Multiple Disease Active [facility] joint pain joint pain 02-03 Rupali kes 00:00: Medical 00 Saline [id number] Benign Problem Common essential Spirit HTN - [facility] [id number] Nonalcohol Problem C ommon ic fatty Spirit liver - CHI disease [facility] [id number] Diverticul Problem Co mmon osis large Spirit intestine - CHI w/o St perforatio [facility] or Medical abscess Center w/o bleeding [id number] Age-relate Problem Com mon d Spirit osteoporos - CHI is without [facility] pathologic Medica l al Center fracture [id number] Mixed Problem Common hyperlipid Spirit emia - [facility] [id number] Overactive Problem Co mmon bladder Spirit - [facility] Allergies, Adverse Reactions, Alerts Allergy Allergy Status [...] Commo n in V in V Spirit - [facility] Family History Family Member Diagnosis Comments Start Date Stop Date Source Natural brother Diabetes [facility] Natural brother Heart disease [facility] Natural brother Cirrhosis [facility] Natural brother Cancer [facility] Natural father Mental illness [facility] Natural mother Cancer [facility] Natural mother Osteoporosis [facility] Natural sister Diabetes [facility] Natural sister Lupus [facility] Natural sister Cancer [facility] Natural sister Osteoporosis [facility] Natural sister Rheumatologic disease [facility] Social History Social Habit Start Date Stop Date Quantity Comments Source Exposure to 2022-01-23 2022-02-02 Not sure University SARS-CoV-2 00:00:00 14:47:00 [facility] (event) [place] Tobacco use and 2022-02-02 2022-02-02 Smokeless tobacco Un iversity of exposure 00:00:00 00:00:00 non-user [facility] Alcohol intake 2016-02-22 2016-02-22 Current [facility] 00:00:00 00:00:00 non-drinker of Medical nter alcohol (finding) Sex Ass[birth year] [facility] 00:00:00 00:00:00 [facility] Sex Assigned At [birth year] [facility] 00:00:00 00:00:00 Smoking Status Start Date Stop Date Source Unknown if ever smoked Common Sp paulina - [facility] Never smoked tobacco [facility] Medical [place] Medications Ordered Filled Start Stop Current Ordering Indication Dosage Frequency Signature Comments Components Source Medication Medication Date Date Medication? Clinician (SIG) Name Name oxybutynin 2021-0 Yes [id number] 15mg Take 1 Univers 15 mg 24 hr 8-05 tablet by ity of tablet 00:00: mouth in [place] 00 the Medical morning. Branch oxybutynin 2021-0 Yes [id number] 15mg Take 1 Univers 15 mg 24 hr 8-05 tablet by ity of tablet 00:00: mouth in [place] 00 the Medical morning. Branch oxybutynin 2021-0 Yes [id number] 15mg Take 1 Univers 15 mg 24 hr 8-05 tablet by ity of tablet 00:00: mouth in [place] 00 the Medical morning. Branch oxybutynin 2021-0 Yes [id number] 15mg Take 1 Univers 15 mg 24 hr 8-05 tablet by ity of tablet 00:00: mouth in [place] 00 the Medical morning. Branch alendronate 0 Yes [id number] 70mg Take 1 Univers 70 mg 6-14 tablet by ity of tablet 00:00: mouth [place] 00 weekly. Medical Branch alendronate 2021-0 Yes [id number] 70mg Take 1 Univers 70 mg 6-14 tablet by ity of tablet 00:00: mouth [place] 00 weekly. Medical Branch alendronate 2021-0 Yes [id number] 70mg Take 1 Univers 70 mg 6-14 tablet by ity of tablet 00:00: mouth [place] 00 weekly. Medical Branch alendronate 2021-0 Yes [id number] 70mg Take 1 Univers 70 mg 6-14 tablet by ity of tablet 00:00: mouth [place] 00 weekly. Medical Branch MELATONIN Yes Take by Unive rs ORAL 6-10 mouth. ity of 08:39: [place] 22 Medical Branch calcium 2021- Yes 1000mg Take 1,000 Un lore carbonate-v 6-10 mg by ity of itamin D3 08:39: mouth. [place] 250 22 Medical mg-3.125 Branch mcg (125 unit) per tablet MELATONIN Yes Take by Unive rs ORAL 6-10 mouth. ity of 08:39: [place] 22 Medical Branch calcium Yes 1000mg Take 1,000 Un lore carbonate-v 6-10 mg by ity of itamin D3 08:39: mouth. [place] 250 22 Medical mg-3.125 Branch mcg (125 unit) per tablet MELATONIN 0 Yes Take by Unive rs ORAL 6-10 mouth. ity of 08:39: [place] [address] Medical Branch calcium 0 Yes 1000mg Take 1,000 Un lore carbonate-v 6-10 mg by ity of itamin D3 08:39: mouth. [place] 250 22 Medical mg-3.125 Branch mcg (125 unit) per tablet MELATONIN Yes Take by Unive rs ORAL 6-10 mouth. ity of 08:39: [place] [address] Medical Branch calcium Yes 1000mg Take 1,000 Un lore carbonate-v 6-10 mg by ity of itamin D3 08:39: mouth. [place] 250 22 Medical mg-3.125 Branch mcg (125 unit) per tablet oxybutynin 0 2021- No [id number] 10mg Take 1 Univers 10 mg 24 hr 6-10 08-05 tablet by it y of tablet 00:00: 00:00 mouth [place] 00 :00 daily. Medical Branch oxybutynin 2021-0 2021- No [id number] 10mg Take 1 Univers 10 mg 24 hr 6-10 08-05 tablet by it y of tablet 00:00: 00:00 mouth [place] 00 :00 daily. Medical Branch carvediloL Yes 6.25mg Take 6.25 Univers 6.25 mg 4-08 mg by ity of tablet 09:26: mouth. [place] [address] Medical Branch amLODIPine 0 Yes 5mg Take 5 mg Un lore 5 mg tablet 4-08 by mouth. ity of 09:26: [place] [address] Medical Branch Pitavastati Yes Take by Uni vers n 2 mg Tab 4-08 mouth. ity of 09:26: [place] [address] Medical Branch carvediloL Yes 6.25mg Take 6.25 Univers 6.25 mg 4-08 mg by ity of tablet 09:26: mouth. [address] Branch amLODIPine Yes 5mg Take 5 mg Un lore 5 mg tablet 4-08 by mouth. ity of 09:26: [place] [address] Medical Branch Pitavastati Yes Take by Uni vers n 2 mg Tab 4-08 mouth. ity of 09:26: [address] carvediloL Yes 6.25mg Take 6.25 Univers 6.25 mg 4-08 mg by ity of tablet 09:26: mouth. [address] amLODIPine Yes 5mg Take 5 mg Un lore 5 mg tablet 4-08 by mouth. ity of 09:26: [address] Pitavastati Yes Take by Uni vers n 2 mg Tab 4-08 mouth. ity of 09:26: [address] carvediloL Yes 6.25mg Take 6.25 Univers 6.25 mg 4-08 mg by ity of tablet 09:26: mouth. [address] amLODIPine Yes 5mg Take 5 mg Un lore 5 mg tablet 4-08 by mouth. ity of 09:26: [address] Pitavastati Yes Take by Uni vers n 2 mg Tab 4-08 mouth. ity of 09:26: [address] calcium 2017-0 Yes 1000mg Take 1,000 [...] capsule 09:42: mouth. Hospita 05 l calcium 2015-0 Yes 1000mg Q.5D Take 1,[address] carbonate-v 8-22 mg by [facility]ukes itamin D2 12:16: mouth 2 Medic al (CALCIUM- 57 (two) Center TAMIN D) times 500-125 daily. mg-unit Tab RED YEAST 2015-0 Yes 600mg QD Take [address] [...] Center hours as needed for Pain. melatonin-p 2016-[address] [facility] [...] mouth 2 Medic al (CALCIUM- 57 (two) [facility] D) times 500-125 daily. mg-unit Tab RED YEAST 2016-0 Yes 600mg QD Take [address] RICE ORAL 8-22 mg by Lukes 12:16: mouth Medical 57 daily. Center traMADol 2016-0 Yes 50mg Take [address] (ULTRAM) 50 8-22 by mouth Luke s mg tablet 12:16: every 6 Medic al 57 (six) Center hours as needed for Pain. melatonin-p 2016-[address] [facility]I S [...] mouth 2 Medic [facility]125 daily. mg-unit Tab RED YEAST Yes 600mg QD Take [address] RICE ORAL 8-22 mg by Lukes 12:16: mouth Medical 57 daily. Center traMADol Yes 50mg Take [address] (ULTRAM) 50 02-19 by mouth Luke s mg tablet 12:16: [...] capsule 12:16: mouth Medical 57 daily. Center pitavastati Yes Method i n calcium 8-06 st (LIVALO) 2 00:00: Hospita mg tablet 00 l pitavastati Yes Method i n calcium 8- st (LIVALO) 2 00:00: Hospita mg tablet [...] 00:00: mouth. Hospita tablet 00 l carvedilol 2014- Yes 6.25mg Take 6.25 Methodi (COREG) 6-[address] 6.25 MG 00:00: mouth. Hospita tablet 00 l carvedilol 2014-0 Yes 6.25mg Take 6.25 Methodi (COREG) 6-26 [...] ical 00 by mouth Center daily. amLODIPine 2014-0 Yes 5mg Take 5 mg Me thodi (NORVASC) 5 5-[address] mg tablet 00:00: Hospita 00 l amLODIPine 2014-0 Yes 5mg Take 5 mg Me thodi (NORVASC) 5 5-[address] mg tablet 00:00: Hospita 00 l amLODIPine 2014-0 Yes 5mg Take 5 mg Me thodi [...] mg Tab 00:00: daily. Medical tablet 00 Saline omega-3 0 Yes 2g Q.5D Take [address] acid ethyl 5-06 capsules [facility]ukes esters 00:00: (2 g Medical (LOVAZA) 1 00 total) by Cent er gram mouth 2 capsule (two) times daily. pitavastati Yes Hyperlipide 2mg QD Take [address] n (LIVALO) 5-06 mary by mouth [facility]ukes 2 mg Tab 00:00: daily. Medical tablet 00 Saline omega-3 Yes 2g Q.5D Take [address] acid ethyl 5-06 capsules [facility]ukes esters 00:00: (2 g Medical (LOVAZA) 1 00 total) by Cent er gram mouth 2 capsule (two) times daily. pitavastati Yes Hyperlipide 2mg QD Take [address] n (LIVALO) 5-06 mary by mouth [facility]ukes 2 mg Tab 00:00: daily. Medical tablet 00 Saline omega-3 0 Yes 2g Q.5D Take [address] acid ethyl 5-06 capsules [facility]ukes esters 00:00: (2 g Medical (LOVAZA) 1 00 total) by Cent er gram mouth 2 capsule (two) times daily. pitavastati Yes Hyperlipide 2mg QD Take [address] n (LIVALO) 5-06 mary by mouth [facility] 2 mg Tab 00:00: daily. Medical tablet 00 Saline omega-3 0 Yes 2g Q.5D Take [address] acid ethyl 5-06 capsules [facility] esters 00:00: (2 g Medical (LOVAZA) 1 00 total) by Cent er gram mouth 2 capsule (two) times daily. omega-3 0 Yes 2g Take 2 g Method i acid ethyl 5-[address] esters 00:00: Hospita (LOVAZA) 1 00 l gram capsule omega-3 0 Yes 2g Take 2 g Method i acid ethyl 5-[address] esters 00:00: Hospita (LOVAZA) 1 00 l gram capsule omega-3 2014- Yes 2g Take 2 g Method i acid ethyl 5-[address] esters 00:00: Hospita (LOVAZA) 1 00 l gram capsule omega-3 2014-0 Yes 2g Take 2 g [...] Immunizations Ordered Filled Immunization Date Status Comments Sourc e Immunization Name Name Influenza High Dose 2021-07-03 Completed Unive rsity of [place] 00:00:00 [facility] Influenza High Dose 2021-07-03 Completed Unive rsity of [place] 00:00:00 [facility] Influenza High Dose 2021-07-03 Completed Unive rsity of [place] 00:00:00 [facility] Influenza High Dose 2021-07-03 Completed Unive rsity of Quad 00:00:00 [facility] SARS-COV-2 COVID-19 2021-05-09 Completed Unive rsity of MODERNA VACCINE 00:00:00 [facility] SARS-COV-2 COVID-19 2021-05-09 Completed Unive rsity of MODERNA VACCINE 00:00:00 [facility] SARS-COV-2 COVID-19 2021-05-09 Completed Unive rsity of MODERNA VACCINE 00:00:00 [facility] SARS-COV-2 COVID-19 2021-05-09 Completed Unive rsity of MODERNA 12+ YRS 00:00:00 [facility] ical VACCINE Branch SARS-COV-2 COVID-19 2020-10-06 Completed Unive rsity of MODERNA VACCINE 00:00:00 [place] Med ical Branch SARS-COV-2 COVID-19 2020-10-06 Completed Unive rsity of MODERNA VACCINE 00:00:00 [place] [facility] ical Branch SARS-COV-2 COVID-19 2020-10-06 Completed Unive rsity of MODERNA VACCINE 00:00:00 [place] [facility] ical Branch SARS-COV-2 COVID-19 2020-10-06 Completed Unive rsity of MODERNA 12+ YRS 00:00:00 [place] Med ical VACCINE Branch SARS-COV-2 COVID-19 2020-09-08 Completed Unive rsity of MODERNA VACCINE 00:00:00 [facility] ical Branch SARS-COV-2 COVID-19 2020-09-08 Completed Unive rsity of MODERNA VACCINE 00:00:00 [place] [facility] ical Branch SARS-COV-2 COVID-19 2020-09-08 Completed Unive rsity of MODERNA VACCINE 00:00:00 [facility] ical Branch SARS-COV-2 COVID-19 2020-09-08 Completed Unive rsity of MODERNA 12+ YRS 00:00:00 [facility] ical VACCINE Branch Vital Signs Vital Name Observation Time Observation Value Comments Source height 2022-06-19 10:00:00 63 [in_i] [facility] weight 2022-06-19 10:00:00 151.5 [lb_av] Common [facility] temperature 2022-06-19 10:00:00 96.8 [degF] [facility] bmi 2022-06-19 10:00:00 26.83 kg/m2 [facility] oximetry 2022-06-19 10:00:00 98 % [facility] respiratory rate 2022-06-19 10:00:00 18 /min Comm on [facility] blood pressure 2022-06-19 10:00:00 121 mm[Hg] Common [facility] blood pressure 2022-06-19 10:00:00 77 mm[Hg] Common Spirit - diastolic [facility] Systolic blood 2022-02-02 20:11:00 139 mm[Hg] Univer sity of pressure [facility] Diastolic blood 2022-02-02 20:11:00 82 mm[Hg] Unive rsity of pressure [facility] Heart rate 2022-02-02 20:11:00 70 /min Universi ty of [facility] Respiratory rate 2022-02-02 20:11:00 18 /min Univ ersity of [facility] Body height 2022-02-02 20:11:00 162.6 cm Universi ty [facility] Body weight 2022-02-02 20:11:00 71.215 kg Universi [facility] BMI 2022-02-02 20:11:00 26.95 kg/m2 [facility] Oxygen saturation in 2022-02-02 20:11:00 96 /min [facility] Arterial blood by [facility] Pulse oximetry Branch Plan of Care Planned Activity Planned Date Details Comments Source Future Scheduled 2022-09-17 COVID-19 VACCINE (#1) [facility] Test 16:08:37 [code = COVID-19 VACCINE (#1)] Future Scheduled 2022-09-17 BREAST CANCER [facility] Test 16:08:37 SCREENING [code = BREAST CANCER SCREENING] Future Scheduled 2022-09-17 COLONOSCOPY SCREENING [facility] Test 16:08:37 [code = COLONOSCOPY SCREENING] Future Scheduled 2022-09-17 SHINGLES VACCINES (1 Met [facility] Test 16:08:37 of 2) [code = SHINGLES VACCINES (1 of 2)] Future Scheduled 2022-09-17 65+ PNEUMOCOCCAL [facility] Hospital Test 16:08:37 VACCINE (1 - PCV) [code = 65+ PNEUMOCOCCAL VACCINE (1 - PCV)] Future Scheduled 2022-09-17 INFLUENZA VACCINE Method [facility] Test 16:08:37 [code = INFLUENZA VACCINE] Future Scheduled 2022-06-19 COVID-19 VACCINE (#1) [facility] Test 09:37:00 [code = COVID-19 VACCINE (#1)] Future Scheduled 2022-06-19 BREAST CANCER [facility] Test 09:37:00 SCREENING [code = BREAST CANCER SCREENING] Future Scheduled 2022-06-19 COLONOSCOPY SCREENING Me [facility] Test 09:37:00 [code = COLONOSCOPY SCREENING] Future Scheduled 2022-06-19 SHINGLES VACCINES (1 Met [facility] Test 09:37:00 of 2) [code = SHINGLES VACCINES (1 of 2)] Future Scheduled 2022-06-19 65+ PNEUMOCOCCAL [facility] Test 09:37:00 VACCINE (1 - PCV) [code = 65+ PNEUMOCOCCAL VACCINE (1 - PCV)] Future Scheduled 2022-06-19 INFLUENZA VACCINE Method is Hospital Test 09:37:00 [code = INFLUENZA VACCINE] Future Scheduled 2022-06-19 COVID-19 VACCINE (#1) Me [facility] Hospital Test 09:37:00 [code = COVID-19 VACCINE (#1)] Future Scheduled 2022-06-19 BREAST CANCER [facility] Test 09:37:00 SCREENING [code = BREAST CANCER SCREENING] Future Scheduled 2022-06-19 COLONOSCOPY SCREENING [facility] Test 09:37:00 [code = COLONOSCOPY SCREENING] Future Scheduled 2022-06-19 SHINGLES VACCINES (1 Met [facility] Test 09:37:00 of 2) [code = SHINGLES VACCINES (1 of 2)] Future Scheduled 2022-06-19 65+ PNEUMOCOCCAL [facility] Test 09:37:00 VACCINE (1 - PCV) [code = 65+ PNEUMOCOCCAL VACCINE (1 - PCV)] Future Scheduled 2022-06-19 INFLUENZA VACCINE Method [facility] Test 09:37:00 [code = INFLUENZA VACCINE] Future Scheduled 2022-03-12 HEPATITIS B VACCINES Met [facility] Test 13:59:25 (1 of 3 - 3-dose series) [code = HEPATITIS B VACCINES (1 of 3 - 3-dose series)] Future Scheduled 2022-03-12 COVID-19 VACCINE (#1) [facility] Test 13:59:25 [code = COVID-19 VACCINE (#1)] Future Scheduled 2022-03-12 BREAST CANCER [facility] Test 13:59:25 SCREENING [code = BREAST CANCER SCREENING] Future Scheduled 2022-03-12 COLONOSCOPY SCREENING [facility] Test 13:59:25 [code = COLONOSCOPY SCREENING] Future Scheduled 2022-03-12 SHINGLES VACCINES (1 [facility] Test 13:59:25 of 2) [code = [...] Clinicians Facility Department ID 2022-06-19 Outpatient Luz, [facility] [id number] Common 09:37:04 [facility] [address] Spirit [facility] 2022-10-09 2022-10-09 Outpatient Telly VIVEROS [facility] [id number] Univers 15:00:00 15:00:00 ANALI [facility] 2022-10-09 2022-10-09 Outpatient Telly VIVEROS [facility] [id number] Univers 13:30:00 13:30:00 ANALI [facility] 2022-06-19 2022-06-19 OFFICE [facility] [id number] Co mmon 00:00:00 00:00:00 VISIT NEW Spir it PT LEVEL 3 - [facility] 2022-03-12 2022-03-12 Ancillary Annabelle Burns [facility] 1.2.840. 114 [id number] Univers 14:00:00 15:00:00 Visit Nikko Herrera [id number] rufus [facility] [id number] Luis Daniel JULIO [phone] Mi dical [address] 2022-03-12 2022-03-12 Outpatient R ROSEANNA [facility] [id number] Univers 14:00:00 14:00:00 NIKKO pinzon [facility] 2022-02-12 2022-02-12 Outpatient Telly HERRERA [facility] [id number] Univers 15:00:00 15:59:43 NIKKO silvarufus [facility] 2022-02-12 2022-02-12 Ancillary Annabelle Burns [facility] 1.2.840. 114 [id number] Univers 15:00:00 15:59:43 Visit Nikko HerreraCHAZ [id number] ity of [facility] [id number] [phone] Mi dical NAL [address] [facility] 2022-02-12 2022-02-12 [facility] [id number] Univers 15:00:00 15:00:00 NIKKO pinzon [facility] 2022-02-02 2022-02-02 Out[facility] [id number] Univers 15:00:00 15:38:42 ANALI pinzon [facility] 2022-02-02 2022-02-02 Office [facility] 1.2.840.114 [id number] Univers 15:00:00 15:38:42 Visit Anali Zacarias [place] [id number] [id number] [phone] Mi dical NAL 134 [facility] 2022-01-29 2022-01-29 Ancillary Annabelle Burns [facility] 1.2.840. 114 [id number] Univers 15:00:00 16:02:07 Visit Nikko Herrera [place] [id number] ity of [facility] [id number] [phone] Mi dical NAL 179 [facility] 2022-01-15 2022-01-15 Outpatient [facility] [id number] Univers 16:00:00 16:51:02 NIKKO pinzon [facility] 2022-01-15 2022-01-15 Ancillary Annabelle Burns [facility] 1.2.840. 114 [id number] Univers 16:00:00 16:51:02 Visit Nikko Herrera [place] [id number] ity of [facility] [id number] [phone] Mi dical NAL 179 [facility] 2021-12-12 2021-12-12 [facility] 1.2.840.114 [id number] Univers 00:00:00 00:00:00 Anali L [place] [id number] ity of [place] [id number] [phone] Mi dical [address] 2021-12-11 2021-12-11 Telephone [facility] [id number] Univers 00:00:00 00:00:00 Anali L [place] [id number] ity of [place] [id number] [phone] Mi dical NAL [address] [place] [address] 2021-12-08 2021-12-08 Outpatient R ADUM, [facility] [id number] Univers 08:15:00 09:13:00 ANALI ity [facility] 2021-12-08 2021-12-08 Office [facility] 1.2.840.114 [id number] Univers 08:15:00 09:13:00 Visit Anali L [place] [id number] ity of [place] [id number] [phone] Mi dical NAL [address] [place] [address] 2021-12-08 2021-12-08 Refill [facility] 1.2.840.114 [id number] Univers 00:00:00 00:00:00 Anali L [place] [id number] ity of [place] [id number] [phone] Mi dical NAL [address] [place] [address] 2021-11-17 2021-11-17 Outpatient R ADUM, [facility] [id number] Univers 10:30:00 10:30:00 ANALI ity [facility] 2021-11-17 2021-11-17 Outpatient R ADUM, [facility] [id number] Univers 10:30:00 10:30:00 ANALI ity [facility] 2021-11-03 2021-11-03 [facility] 1.2.840.114 [id number] Univers 09:40:15 23:59:00 Encounter Anali L [place] [id number] ity of [facility] [id number] [phone] [facility] [address] [place] 2021-11-03 2021-11-03 Hospital [facility] 1.2.840.114 [id number] Univers 09:39:13 09:39:13 Encounter Anali Zacarias [place] [id number] ity of [facility] [id number] [id number] [facility] [address] [place] 2021-11-03 2021-11-03 [facility] [id number] Univers 09:39:13 09:39:13 ANALI ity of [facility] 2021-11-03 2021-11-03 Orders Doctor ALEXA 1.2.840.114 [id number] Univers 00:00:00 00:00:00 Only Unassigned, JONATHAN [id number] ity of [place] [facility] [id number] Roberto as [phone] [facility] 009 Branch 2021-10-19 2021-10-19 Telephone [facility] [id number] Univers 00:00:00 00:00:00 Anali Rell [place] [id number] [place] of [id number] [phone] Mi dical NAL [address] [place] [address] 2021-10-06 2021-10-06 [facility] [id number] Univers 09:00:00 10:30:20 ANALI ity of [facility] 2021-10-06 2021-10-06 Office [facility] 1.2.840.114 [id number] Univers 09:00:00 10:30:20 Visit Anali Rell [place] [id number] ity of [facility] [id number] [phone] Mi dical NAL 134 [facility] 2021-10-06 2021-10-06 Letter Doctor ALEXA 1.2.840.114 [id number] Univers 00:00:00 00:00:00 (Out) Unassigned, JONATHAN [id number] ity of [place] [facility] [id number] Roberto as [phone] [facility] 044 Branch
--- NOTE | 2022-09-17 17:48 | RAD REPORT ---
EXAM DESCRIPTION: Zina Single View09/17/2022 5:17 pm CLINICAL HISTORY: Chest pain/dysphasia COMPARISON: 2019 FINDINGS: The lungs appear clear of acute infiltrate. The heart is normal size IMPRESSION: No acute abnormalities displayed
[2022-09-17 18:00] LABS: Absolute Lymphocytes (CBC) 1.9 K/uL (0.7-4.9); Hematocrit 45.8 % (36.0-45.0); Lymphocytes % 18.4 % (15.3-44.8); MCV 85.2 fL (80-100); MPV 7.8 fL (7.6-11.3); RBC Red Blood Cell Count 5.38 M/uL (3.86-4.86)
[2022-09-17 18:13] LABS: Potassium 3.9 mEq/L (3.5-5.1)
[2022-09-17] MEDS ORDERED: HYDROCOD 2.5mg-ACETAMIN 108mg/5mL Soln ONE (18:56)
--- NOTE | 2022-09-17 19:03 | RAD REPORT ---
EXAM DESCRIPTION: CT - Soft Tissue Neck W/Contr - 09/17/2022 6:51 pm CLINICAL HISTORY: Neck pain with sore throat. Dysphagia COMPARISON: None. TECHNIQUE: Computed axial tomography of the neck was obtained. 50 cc Isovue 300 was administered in travenously. Coronal and sagittal reconstruction was performed. All CT scans are performed using dose optimization technique as appropriate and may include automated exposure control or mA/KV adjustment according to patient size. FINDINGS: An 11 millimeter apparent soft tissue region of the right tonsil. No abscess. Parapharynge al fat clear Soft tissue fullness right piriform sinus. Remainder of the airway unremarkable. Right submandibular gland absent The parotid, left submandibular appear unremarkable. A subcentimeter thyroid nodules likely benign. No follow-up recommended No lymphadenopathy is seen No fluid within the sinuses/mastoids IMPRESSION: 11 millimeter Josette soft tissue structure region the right tonsil. This may represent a mass or tonsillar inflammation. No abscess Soft tissue fullness right piriform sinus. This can be secondary to incomplete distention or mass. It is recommended that the patient have direct visualization for further evaluation
--- NOTE | 2022-09-17 19:59 | EDPHYS ---
Physician Documentation [facility] Name: Awa Tracy Age: 67 yrs Sex: Female : 1955 Arrival Date: 09/17/2022 Time: 16:03 Bed 2 Private MD: Sukh [facility] ED Physician Martha Luz HPI: 09/17 16:45 This 67 yrs old Female presents to ER via Ambulatory with complaints of cp Difficulty Swallowing, Mouth Problem. 16:45 The patient presents with sore throat, dysphagia, of both solids and liquids. The cp patient describes throat pain as constant. 16:45 Onset: The symptoms/episode began/occurred last week. cp 16:45 Patient returns to ED for reevaluation after being seen yesterday for dysphagia and cp sore throat. Patient reports being diagnosed with strep throat last week and taking Bactrim for about 4 days. Patient reportedly had allergic reaction to Bactrim, so she was started on Zithromax. Currently has 1 day left of Zithromax but sore throat continues. Seen in this ED yesterday and prescribed nystatin liquid. C/o difficulty eating and drinking due to pain. Historical: - Allergies: 16:21 PENICILLINS; aa5 - PMHx: 16:21 Hyperlipidemia; Hypertension; overactive bladder; aa5 ROS: 16:50 Constitutional: Positive for poor PO intake, Negative for body aches, chills, fever. cp 16:50 Eyes: Negative for injury, pain, redness, and discharge. cp 16:50 ENT: Positive for difficulty swallowing, ear pain, sore throat, Negative for drainage from ear(s), rhinorrhea, sinus congestion, sinus pain. 16:50 Neck: Positive for pain with movement, pain at rest, tenderness. 16:50 Cardiovascular: Negative for chest pain, edema, palpitations. 16:50 Respiratory: Negative for cough, shortness of breath, wheezing. 16:50 Abdomen/GI: Positive for nausea, Negative for abdominal pain, vomiting, diarrhea, constipation. 16:50 Skin: Negative for cellulitis, rash. 16:50 Neuro: Negative for altered mental status, dizziness, headache, weakness. 16:50 All other systems are negative. Exam: 17:00 Head/Face: Normocephalic, atraumatic. cp 17:00 Constitutional: The patient appears in no acute distress, alert, awake, non-diaphoretic, non-toxic, well developed, well nourished, uncomfortable. 17:00 Eyes: Periorbital structures: appear normal, Conjunctiva: normal, no exudate, no injection, Sclera: no appreciated abnormality, Lids and lashes: appear normal, bilaterally. 17:00 ENT: External ear(s): are unremarkable, Ear canal(s): are normal, clear, TM's: erythema, that is mild, on the right, Examination of the other ear shows no obvious abnormality, Nose: is normal, Mouth: Lips: moist, Oral mucosa: moist, Tongue: is normal, Posterior pharynx: Airway: no evidence of obstruction, patent, Tonsils: bilateral enlarged with right worse than left, left tonsil with exudate, marked erythema, Uvula: midline, swelling, that is mild, erythema, that is marked, Voice: is normal. 17:00 Neck: External neck: swelling, is not appreciated, tenderness, that is moderate, of the right anterior aspect of neck, ROM/movement: is normal, is supple, no meningismus, no nuchal rigidity. 17:00 Chest/axilla: Inspection: normal. 17:00 Cardiovascular: Rate: normal, Rhythm: regular. 17:00 Respiratory: the patient does not display signs of respiratory distress, Respirations: normal, no use of accessory muscles, no retractions, labored breathing, is not present, Breath sounds: are clear throughout, no decreased breath sounds, no stridor, no wheezing. 17:00 Abdomen/GI: Inspection: abdomen appears normal, Palpation: abdomen is soft and non-tender, in all quadrants. 17:00 Back: pain, is absent, ROM is normal. 17:00 Skin: cellulitis, is not appreciated, no rash present. 17:00 Neuro: Orientation: to person, place \T\ time. Mentation: is normal, Motor: moves all fours, strength is normal, Sensation: is normal. 18:12 ECG was reviewed by the Attending Physician. cp Vital Signs: 16:23 BP 141 / 87; Pulse 94; Resp 18 S; Temp 98.2(TE); Pulse Ox 97% on R/A; Weight 68.04 kg aa5 (R); Height 5 ft. 4 in. (R); 22:00 BP 152 / 81; Pulse 82; Resp 17; Pulse Ox 96% on R/A; ll3 23:00 BP 135 / 65; Pulse 80; Resp 17; Pulse Ox 95% on R/A; ll3 16:23 Body Mass Index 25.75 (68.04 kg, 162.56 cm) aa5 MDM: 16:27 Patient medically screened. [facility] 19:58 Data reviewed: vital signs, nurses notes, lab test result(s), EKG, radiologic studies, cp CT scan, plain films, I have discussed the patient's presentation/case with the attending Emergency Department Physician; and as a result, I will discharge patient. 19:58 Consideration of Admission/Observation Escalation of care including cp admission/observation considered. I considered the following discharge prescriptions or medication management in the emergency department Medications were administered in the Emergency Department. See MAR. Care significantly affected by the following chronic conditions: Hypertension. Response to treatment: the patient's symptoms have mildly improved after treatment, and as a result, I will discharge patient. 21:45 ED course: spoke with patient's primary ENT, DR Knight, as requested by patient and cp family. Will give IV fluids and patient is to contact clinic for f/u tomorrow. 09/17 16:41 Order name: Basic Metabolic Panel; Complete Time: 18:17 09/17 18:18 Interpretation: Normal except: CL 109; BUN 21; GFR 73. 09/17 16:41 Order name: CBC with Diff; Complete Time: 18:18 09/17 18:18 Interpretation: Normal except: RBC 5.38; HGB 15.2; HCT 45.8. 09/17 16:41 Order name: [place] Screen Profile; Complete Time: 19:11 09/17 16:41 Order name: Strep; Complete Time: 18:17 09/17 18:16 Order name: Throat Culture EDNV 09/17 16:41 Order name: XRAY Chest (1 view); Complete Time: 18:08 09/17 18:08 Interpretation: Report review. 09/17 16:41 Order name: CT Soft Tissue Neck W/contr; Complete Time: 19:11 09/17 16:41 Order name: EKG; Complete Time: 16:41 09/17 16:41 Order name: Cardiac monitoring; Complete Time: 23:14 09/17 16:41 Order name: EKG - Nurse/Tech; Complete Time: 21:50 cp 09/17 16:41 Order name: IV Saline Lock; Complete Time: 17:53 cp 09/17 16:41 Order name: Labs collected and sent; Complete Time: 17:53 cp 09/17 16:41 Order name: O2 Per Protocol; Complete Time: 21:40 cp 09/17 16:41 Order name: O2 Sat Monitoring; Complete Time: 21:40 cp 09/17 19:43 Order name: PO challenge; Complete Time: 22:12 cp EC:12 Rate is 88 beats/min. Rhythm is regular. AR interval is normal. QRS interval is normal. cp QT interval is normal. T waves are Inverted in leads V2, V3. Interpreted by me. Reviewed by me. Administered Medications: 19:15 Drug: Lortab PO Liquid 15 ml Route: PO; iw 23:14 Follow up: Response: No adverse reaction; No change in condition ll3 22:11 Drug: Clindamycin IVPB 600 mg Route: IVPB; Infused Over: 30 mins; Site: right ll3 antecubital; 23:13 Follow up: Response: No adverse reaction; IV Status: Completed infusion; IV Intake: [id number] 22:11 Drug: Ondansetron IVP 4 mg Route: IVP; Site: right antecubital; ll3 23:13 Follow up: Response: No adverse reaction ll3 22:11 Drug: NS 0.9% IV 1000 ml Route: IV; Rate: 1 bolus; Site: right antecubital; ll3 23:13 Follow up: Response: No adverse reaction; IV Status: Completed infusion; IV Intake: ll3 1000ml 22:11 Drug: fentaNYL (PF) IVP 25 mcg Route: IVP; Site: right antecubital; ll3 23:13 Follow up: Response: No adverse reaction ll3 22:11 Drug: GI Cocktail without - (Maalox PO Suspension 30 ml, Lidocaine Mucous ll3 Membrane Liquid 2 % 15 ml) Route: PO; 23:13 Follow up: Response: No adverse reaction; Marked relief of symptoms ll3 22:12 Drug: Decadron - Dexamethasone IVP 10 mg Route: IVP; Site: right antecubital; ll3 23:14 Follow up: Response: No adverse reaction ll3 Disposition Summary: 09/17/22 19:58 Discharge Ordered Location: Home cp Problem: an ongoing problem cp Symptoms: have improved cp Condition: Stable cp Diagnosis - Right Tonsillar Mass cp - Otitis media, unspecified, right ear cp Followup: cp - With: Tamika Bauer MD - When: 2 - 3 days - Reason: Recheck today's complaints Discharge Instructions: - Discharge Summary Sheet cp - Otitis Media, Adult cp Forms: - Medication Reconciliation Form cp - Thank You Letter cp - Antibiotic Education cp - Prescription Opioid Use cp Prescriptions: - codeine sulfate 30 mg Oral tablet - take 2 tablet by ORAL route every 8 hours As needed as needed for pain; 15 cp tablet; Refills: 0, Product Selection Permitted - Clindamycin HCl 300 mg Oral Capsule - take 1 capsule by ORAL route every 6 hours for 10 days; 40 capsule; Refills: 0, cp Product Selection Permitted - Zofran 4 mg Oral Tablet - take 1 tablet by ORAL route every 12 hours As needed; 20 tablet; Refills: 0, cp Product Selection Permitted Signatures: Dispatcher [employer] EDNV Otoniel Martinez MD MD cha Williams, Irene, RN RN Emelyn Zuniga RN RN aa5 Otoniel Chiu PA PA cp Clifton Maguire RN RN ll3 Corrections: (The following items were deleted from the chart) 09/18 20:09/17 16:40 Constitutional: The patient appears in no acute distress, alert, awake, cp non-diaphoretic, non-toxic, well developed, well nourished, uncomfortable, cp 09/19 19:09/17 16:40 Head/Face: Normocephalic, atraumatic. cp cp 09/19 19:09/17 16:40 Eyes: Periorbital structures: appear normal, Conjunctiva: normal, no cp exudate, no injection, Sclera: no appreciated abnormality, Lids and lashes: appear normal, bilaterally, cp 09/19 19:09/17 16:40 ENT: External ear(s): are unremarkable, Ear canal(s): are normal, clear, cp TM's: erythema, that is mild, on the right, Examination of the other ear shows no obvious abnormality, Nose: is normal, Mouth: Lips: moist, Oral mucosa: moist, Tongue: is normal, Posterior pharynx: Airway: no evidence of obstruction, patent, Tonsils: bilateral enlarged with right worse than left, left tonsil with exudate, marked erythema, Uvula: midline, swelling, that is mild, erythema, that is marked, Voice: is normal, cp 09/19 19:09/17 16:40 Neck: External neck: swelling, is not appreciated, tenderness, that is cp moderate, of the right anterior aspect of neck, ROM/movement: is normal, is supple, no meningismus, no nuchal rigidity, cp 09/19 19:09/17 16:40 Chest/axilla: Inspection: normal, cp cp 09/19 19:09/17 16:40 Cardiovascular: Rate: normal, Rhythm: regular, cp cp 09/19 19:09/17 16:40 Respiratory: the patient does not display signs of respiratory distress, cp Respirations: normal, no use of accessory muscles, no retractions, labored breathing, is not present, Breath sounds: are clear throughout, no decreased breath sounds, no stridor, no wheezing, cp 09/19 19:09/17 16:40 Abdomen/GI: Inspection: abdomen appears normal, Palpation: abdomen is soft cp and non-tender, in all quadrants, cp 09/19 19:09/17 16:40 Back: pain, is absent, ROM is normal, cp cp 09/19 19:09/17 16:40 Skin: cellulitis, is not appreciated, no rash present. cp cp 09/19 19:09/17 16:40 Neuro: Orientation: to person, place \T\ time. Mentation: is normal, Motor: cp moves all fours, strength is normal, Sensation: is normal, cp 09/18 20: 20:32 Data reviewed: vital signs, nurses notes, lab test result(s), EKG, radiologic cp studies, CT scan, plain films, cp
--- NOTE | 2022-09-17 19:59 | ER ---
Nurse's Notes [facility] Name: Awa Tracy Age: 67 yrs Sex: Female : 1955 Arrival Date: 09/17/2022 Time: 16:03 Bed 2 Private MD: Siddhartha Luz Diagnosis: Right Tonsillar Mass;Otitis media, unspecified, right ear Presentation: 09/17 16:21 Chief complaint: Patient states: "I was diagnosed with strep and I was taking Bactrim aa5 but I found out I was allergic to Bactrim because I got all this sores in my mouth and my throat and they changed my antibiotic to Z-pack and I only have 1 pill left". pt c/o pain to mouth, states "I can't eat or drink anything". 16:23 Coronavirus screen: sore throat. Ebola Screen: Patient denies travel to an [facility] Ebola-affected area in the 21 days before illness onset. Initial Sepsis Screen: Does the patient meet any 2 criteria? HR > 90 bpm. Does the patient have a suspected source of infection? No. Patient's initial sepsis screen is negative. Risk Assessment: Do you want to hurt yourself or someone else? Patient reports no desire to harm self or others. Onset of symptoms was August 2022. 16:23 Acuity: NICHOL 3 aa5 16:23 Method Of Arrival: Ambulatory aa5 Historical: - Allergies: 16:21 PENICILLINS; aa5 - PMHx: 16:21 Hyperlipidemia; Hypertension; overactive bladder; aa5 Screenin:16 [facility] ED Fall Risk Assessment (Adult) History of falling in the last 3 months, ll3 including since admission No falls in past 3 months (0 pts) Confusion or Disorientation No (0 pts) Intoxicated or Sedated No (0 pts) Impaired Gait No (0 pts) Mobility Assist Device Used No (0 pt) Altered Elimination No (0 pt) Score/Fall Risk Level 0 - 2 = Low Risk Oriented to surroundings, Maintained a safe environment, Educated pt \\T\\ family on fall prevention, incl call for assistance when getting out of bed. Abuse screen: Denies threats or abuse. Denies injuries from another. Nutritional screening: No deficits noted. Tuberculosis screening: No symptoms or risk factors identified. Assessment: 22:00 General: Appears in no apparent distress. uncomfortable, Behavior is calm, cooperative. ll3 Pain: Complains of pain in soft palate, left buccal mucosa and right buccal mucosa Pain does not radiate. Pain currently is 9 out of 10 on a pain scale. Neuro: Level of Consciousness is awake, alert, obeys commands, Oriented to person, place, time, situation. EENT: Throat is reddened Reports difficulty swallowing pain when swallowing. Derm: Skin is pink, warm \\T\\ dry. Vital Signs: 16:23 BP 141 / 87; Pulse 94; Resp 18 S; Temp 98.2(TE); Pulse Ox 97% on R/A; Weight 68.04 kg aa5 (R); Height 5 ft. 4 in. (R); 22:00 BP 152 / 81; Pulse 82; Resp 17; Pulse Ox 96% on R/A; ll3 23:00 BP 135 / 65; Pulse 80; Resp 17; Pulse Ox 95% on R/A; ll3 16:23 Body Mass Index 25.75 (68.04 kg, 162.56 cm) aa5 ED Course: 16:03 Patient arrived in ED. rg4 16:03 Siddhartha Luz DO is Private Physician. rg4 16:09 Otoniel Chiu PA is PHCP. cp 16:09 Micah Vigil MD is Attending Physician. cp 16:21 Arm band placed on. aa5 16:24 Triage completed. aa5 16:26 Attending Physician role handed off by Micah Vigil MD rafy 16:26 Otoniel Martinez MD is Attending Physician. rafy 17:19 XRAY Chest (1 view) In Process Unspecified. EDMS 18:49 Aparna Jenkins, EJ is Primary Nurse. iw 18:52 CT Soft Tissue Neck W/contr In Process Unspecified. EDMS 19:16 Martha Luz MD is Attending Physician. cp 19:57 Tamika Bauer MD is Referral Physician. cp 23:16 Patient has correct armband on for positive identification. Placed in gown. Bed in low ll3 position. Call light in reach. Side rails up X 1. Adult w/ patient. 23:16 No provider procedures requiring assistance completed. IV discontinued, intact, ll3 bleeding controlled, No redness/swelling at site. Pressure dressing applied. Administered Medications: 19:15 Drug: Lortab PO Liquid 15 ml Route: PO; iw 23:14 Follow up: Response: No adverse reaction; No change in condition ll3 22:11 Drug: Clindamycin IVPB 600 mg Route: IVPB; Infused Over: 30 mins; Site: right ll3 antecubital; 23:13 Follow up: Response: No adverse reaction; IV Status: Completed infusion; IV Intake: [id number] 22:11 Drug: Ondansetron IVP 4 mg Route: IVP; Site: right antecubital; ll3 23:13 Follow up: Response: No adverse reaction ll3 22:11 Drug: NS 0.9% IV 1000 ml Route: IV; Rate: 1 bolus; Site: right antecubital; ll3 23:13 Follow up: Response: No adverse reaction; IV Status: Completed infusion; IV Intake: ll3 1000ml 22:11 Drug: fentaNYL (PF) IVP 25 mcg Route: IVP; Site: right antecubital; ll3 23:13 Follow up: Response: No adverse reaction ll3 22:11 Drug: GI Cocktail without - (Maalox PO Suspension 30 ml, Lidocaine Mucous ll3 Membrane Liquid 2 % 15 ml) Route: PO; 23:13 Follow up: Response: No adverse reaction; Marked relief of symptoms ll3 22:12 Drug: Decadron - Dexamethasone IVP 10 mg Route: IVP; Site: right antecubital; ll3 23:14 Follow up: Response: No adverse reaction ll3 Medication: 23:17 VIS not applicable for this client. ll3 Intake: 23:13 IV: 1000ml; Total: 1000ml. ll3 23:13 IV: 50ml; Total: 1050ml. ll3 Outcome: 19:58 Discharge ordered by . grisel 23:16 Discharged to home via wheelchair, with family. ll3 23:16 Condition: stable 23:16 Discharge instructions given to patient, family, Instructed on discharge instructions, follow up and referral plans. medication usage, Demonstrated understanding of instructions, follow-up care, medications, Prescriptions given X 3. 23:17 Patient left the ED. ll3 Signatures: Dispatcher [employer] EDOtoniel Malagon MD MD cha Williams, Irene RN Emelyn Cadena RN RN aa5 Otoniel Chiu PA PA cp Garcia, Rubi 4 Clifton Maguire RN RN ll3 Corrections: (The following items were deleted from the chart) 16:24 16:21 Chief complaint: Patient states: "I was diagnosed with strep and I was taking aa5 aa5
[2022-09-17] MEDS ORDERED: MAGNES/ALUMIN/SIMET 30ML UCUP ONE (21:57)
[2022-09-17] MEDS ORDERED: ONDANSETRON 4 MG/2 ML VIAL ONE (21:59)
[2022-09-17] MEDS ORDERED: FENTANYL CITR 100 MCG/2 ML ONE (21:59)
[2022-09-17] MEDS ORDERED: dexAMETHasone 10 MG/ML VIAL ONE (21:59)
[2022-09-17] MEDS ORDERED: CLINDAMYCIN 600MG/D5W 50 ML IV ONE (22:00)
[2022-09-17] MEDS ORDERED: NA CHLORIDE 0.9% 1,000 ML ONE (22:00)
[2022-09-17] MEDS ORDERED: LIDOCAINE VISCOUS 2% SOLN 15 ML UDC ONE (22:00)
[2022-09-18 07:48] VITALS: TEMP 98.2
[2022-09-18 07:50] VITALS: BP 135/65; O2SAT 95
--- NOTE | 2022-09-18 12:59 | EKG ---
Test Date: 2022-09-17 Test Time: 18:02:17 Personnel Monitor: JULIANA MEASUREMENT RESULTS: Intervals: Rate: 88 CA: 174 QRSD: 84 QT: 366 QTc: 442 [place]: P: 7 CA: 174 QRS: -34 T: 0 INTERPRETIVE STATEMENTS: Normal sinus rhythm Left axis deviation Possible Anterior infarct, age undetermined Abnormal ECG Compared to ECG 04/23/2020 13:15:31 Left-axis deviation now present Myocardial infarct finding now present T-wave abnormality no longer present Electronically Signed On 09-18-22 12:58:06 CDT by Kian Salmon
== END 2022-09-17 23:17 | disposition home or self-care (01) ==
LOC: ER 16:00
DX: J35.8 Other chronic diseases of tonsils and adenoids (principal); H66.91 Otitis media, unspecified, right ear; Z88.0 Allergy status to penicillin
CPT/HCPCS: 87070; 85025; 80048; 36415; 86308; 87081; 70491; 71045; Q9967; J3010; J1100; J2405; J7030; 93005

== ENCOUNTER → 2023-08-21 | Emergency (ER) | payer OTHER ==
[~2023-08-21] MED LIST: DIPHENHYDRAMINE 50 MG/ML VIAL ONE; KETOROLAC 30 MG/ML INJ ONE; METOCLOPRAMIDE 10 MG/2mL INJ ONE; NA CHLORIDE 0.9% 1,000 ML ONE
[2023-08-21 11:08] LABS: Hematocrit 42.1 % (36.0-45.0); Lymphocytes % 18.7 % (15.3-44.8); MCV 83.7 fL (80-100); MPV 7.8 fL (7.6-11.3); Platelets 253 thou/uL (152-406); RBC Red Blood Cell Count 5.03 M/uL (3.86-4.86)
[2023-08-21 11:25] LABS: Albumin 3.5 g/dL (3.4-5.0); Bilirubin Total 0.6 mg/dL (0.2-1.0); Potassium 3.6 mEq/L (3.5-5.1); Protein, Total 7.4 g/dL (6.4-8.2)
--- NOTE | 2023-08-21 11:30 | RAD REPORT ---
EXAM DESCRIPTION: Zina Single View08/21/2023 11:23 am CLINICAL HISTORY: Cough COMPARISON: 2022 FINDINGS: The lungs appear clear of acute infiltrate. The heart is normal size IMPRESSION: No acute abnormalities displayed
--- NOTE | 2023-08-21 12:17 | EDPHYS ---
Physician Documentation [facility] Name: Awa Tracy Age: 68 yrs Sex: Female : 1955 Arrival Date: 08/21/2023 Time: 10:10 Bed 19 Private MD: ED Physician Kade Shields HPI: 08/21 10:38 This 68 yrs old Female presents to ER via Unassigned with complaints of ec2 Diarrhea, Productive Cough. 10:38 Patient arrives today for evaluation of persistent URI signs and symptoms. Patient ec2 reportedly tested positive for influenza approximately 1.5 weeks ago. Patient reports she has been having residual symptoms. Patient reports cough, decreased p.o. intake, nausea, diarrhea. No vomiting, no abdominal pain. Does complain of some general weakness.. Historical: - Allergies: 10:37 PENICILLINS; iw 10:37 Sulfa (Sulfonamide Antibiotics); iw - PMHx: 10:37 Hyperlipidemia; Hypertension; overactive bladder; shingles; iw - Immunization history:: Adult Immunizations up to date. - Social history:: Smoking status: Patient denies any tobacco usage or history of. ROS: 10:38 Constitutional: as per hpi ec2 Exam: 10:38 Constitutional: GEN: NAD Head: atraumatic Eyes: EOMI Ears: External ears are ec2 normal. CV: regular rate LUNGS: no respiratory distress ABD: non-distended SKIN: no evidence of rashes MSK: no evidence of trauma NEURO: moves all extremities equally Vital Signs: 10:42 BP 132 / 74; Pulse 77; Resp 16; Temp 97.9; Pulse Ox 98% on R/A; Weight 66.68 kg; Height iw 5 ft. 4 in. ; Pain 8/10; 10:42 Body Mass Index 25.23 (66.68 kg, 162.56 cm) iw 10:42 Pain Scale: Adult iw MDM: 10:26 Patient medically screened. ec2 10:38 ED course: Patient arrives today for URI signs and symptoms. Examination remarkable for ec2 well-appearing nontoxic individual is otherwise in no acute distress with a reassuring examination. Will obtain lab work, treat the patient's symptoms and reassess the patient. Suspect sequela of patient's influenza, low suspicion for acute process like pneumonia, low suspicion for bacteremia.. 10:45 Data reviewed: vital signs. ec2 11:32 ED course: CBC reassuring, metabolic profile with appropriate electrolytes, no marked ec2 renal abnormalities, chest x-ray shows no acute intrathoracic process. Presentation consistent with sequela of viral infection. Will discharge home. Return precautions given. . 08/21 10:30 Order name: CBC with Diff; Complete Time: 11:32 ec2 08/21 10:30 Order name: CMP; Complete Time: 11:32 ec2 08/21 10:30 Order name: CXR XRAY; Complete Time: 11:32 ec2 Administered Medications: 11:07 Drug: NS 0.9% IV 1000 ml IV at 1 bolus Per protocol; 1000 mL bolus Route: IV; Rate: 1 cp4 bolus; Site: left antecubital; 12:45 Follow up: Response: No adverse reaction; IV Status: Completed infusion cp4 11:07 Drug: metoCLOPramide IVP 10 mg IVP once; over 1 to 2 minutes Route: IVP; Site: left cp4 antecubital; 12:45 Follow up: Response: No adverse reaction cp4 11:07 Drug: diphenhydrAMINE IVP 50 mg IVP once Route: IVP; Site: left antecubital; cp4 12:45 Follow up: Response: No adverse reaction cp4 11:07 Drug: Ketorolac IVP 15 mg IVP once Route: IVP; Site: left antecubital; cp4 12:45 Follow up: Response: No adverse reaction cp4 Disposition Summary: 08/21/23 12:16 Discharge Ordered Notes: Location: Home ec2 Problem: an ongoing problem ec2 Symptoms: have improved ec2 Condition: Stable ec2 Diagnosis - Viral infection, unspecified ec2 Followup: ec2 - With: Private Physician - When: - Reason: Re-evaluation by your physician Discharge Instructions: - Discharge Summary Sheet ec2 - Viral Illness, Adult ec2 Forms: - Medication Reconciliation Form ec2 - Thank You Letter ec2 - Antibiotic Education ec2 - Prescription Opioid Use ec2 - Patient Portal Instructions ec2 - Leadership Thank You Letter ec2 Prescriptions: - Zofran 4 mg Oral Tablet - take 1 tablet ORAL route every 12 hours As needed; 20 tablet; Refills: 0, ec2 Product Selection Permitted - Tessalon Perles 100 mg Oral Capsule - take 1 capsule ORAL route every 8 hours As needed; 15 capsule; Refills: 0, ec2 Product Selection Permitted Signatures: Dispatcher [employer] Aparna Talbert RN RN iw Kade Shields MD MD ec2 Ashley Hurtado cp4 Corrections: (The following items were deleted from the chart) 10:47 10:38 Patient arrives today for evaluation of persistent URI signs and symptoms. ec2 Patient reportedly tested positive for influenza approximately 1.5 weeks ago. Patient reports has been having residual symptoms. Patient reports cough, decreased p.o. intake, nausea, diarrhea. No vomiting, no abdominal pain. Does complain of some general weakness.. ec2
--- NOTE | 2023-08-21 12:17 | ER ---
Nurse's Notes [facility] Name: Awa Tracy Age: 68 yrs Sex: Female : 1955 Arrival Date: 08/21/2023 Time: 10:10 Bed 19 Private MD: Diagnosis: Viral infection, unspecified Presentation: 08/21 10:37 Acuity: NICHOL 3 iw 10:42 Chief complaint: Patient states: was diagnosed with the flu a couple weeks ago, still iw having nausea, diarrhea, cough, not feeling well. Coronavirus screen: Client presents with at least one sign or symptom that may indicate coronavirus-19. Ebola Screen: Patient negative for fever greater than or equal to 101.5 degrees Fahrenheit, and additional compatible Ebola Virus Disease symptoms Patient denies exposure to infectious person. Patient denies travel to an Ebola-affected area in the 21 days before illness onset. No symptoms or risks identified at this time. Initial Sepsis Screen: Does the patient meet any 2 criteria? No. Patient's initial sepsis screen is negative. Does the patient have a suspected source of infection? No. Patient's initial sepsis screen is negative. Risk Assessment: Do you want to hurt yourself or someone else? Patient reports no desire to harm self or others. 10:42 Method Of Arrival: Ambulatory iw 12:44 Onset of symptoms was August 14, 2023. cp4 Triage Assessment: 12:44 General: Appears in no apparent distress. Behavior is calm, cooperative, appropriate cp4 for age. Historical: - Allergies: 10:37 PENICILLINS; iw 10:37 Sulfa (Sulfonamide Antibiotics); iw - PMHx: 10:37 Hyperlipidemia; Hypertension; overactive bladder; shingles; iw - Immunization history:: Adult Immunizations up to date. - Social history:: Smoking status: Patient denies any tobacco usage or history of. Screenin:08 [facility] ED Fall Risk Assessment (Adult) History of falling in the last 3 months, cp4 including since admission No falls in past 3 months (0 pts) Confusion or Disorientation No (0 pts) Intoxicated or Sedated No (0 pts) Impaired Gait No (0 pts) Mobility Assist Device Used No (0 pt) Altered Elimination No (0 pt) Score/Fall Risk Level 0 - 2 = Low Risk Oriented to surroundings, Maintained a safe environment, Educated pt \T\ family on fall prevention, incl call for assistance when getting out of bed, Assessed \T\ reinforced patient's understanding of fall precautions, Hourly rounding (assess needs \T\ fall precautionary measures) done. Abuse screen: Denies threats or abuse. Nutritional screening: No deficits noted. Tuberculosis screening: No symptoms or risk factors identified. Assessment: 11:08 Pain: Complains of pain in abdomen. GI: Reports diarrhea, nausea, vomiting. cp4 11:08 GI: Abdomen is round non-distended, Bowel sounds present X 4 quads. cp4 Vital Signs: 10:42 BP 132 / 74; Pulse 77; Resp 16; Temp 97.9; Pulse Ox 98% on R/A; Weight 66.68 kg; Height iw 5 ft. 4 in. ; Pain 8/10; 10:42 Body Mass Index 25.23 (66.68 kg, 162.56 cm) iw 10:42 Pain Scale: Adult iw ED Course: 10:13 Patient arrived in ED. ec2 10:14 Kade Shields MD is Attending Physician. ec2 10:37 Triage completed. iw 10:40 Ashley Hurtado is Primary Nurse. cp4 10:42 Arm band placed on. iw 11:08 Bed in low position. Call light in reach. Side rails up X 1. Provided Education on: cp4 nausea, vomiting, diarrhea. 11:08 Inserted saline lock: 20 gauge in left antecubital area, using aseptic technique. Blood cp4 collected. 11:25 CXR XRAY In Process Unspecified. EDMS 12:43 No provider procedures requiring assistance completed. intact, bleeding controlled, No cp4 redness/swelling at site. Pressure dressing applied. Administered Medications: 11:07 Drug: NS 0.9% IV 1000 ml IV at 1 bolus Per protocol; 1000 mL bolus Route: IV; Rate: 1 cp4 bolus; Site: left antecubital; 12:45 Follow up: Response: No adverse reaction; IV Status: Completed infusion cp4 11:07 Drug: metoCLOPramide IVP 10 mg IVP once; over 1 to 2 minutes Route: IVP; Site: left cp4 antecubital; 12:45 Follow up: Response: No adverse reaction cp4 11:07 Drug: diphenhydrAMINE IVP 50 mg IVP once Route: IVP; Site: left antecubital; cp4 12:45 Follow up: Response: No adverse reaction cp4 11:07 Drug: Ketorolac IVP 15 mg IVP once Route: IVP; Site: left antecubital; cp4 12:45 Follow up: Response: No adverse reaction cp4 Medication: 11:08 VIS not applicable for this client. cp4 Outcome: 12:16 Discharge ordered by . ec2 12:43 Discharged to home ambulatory, cp4 12:43 Condition: stable 12:43 Discharge instructions given to patient, Instructed on discharge instructions, follow up and referral plans. medication usage, Demonstrated understanding of instructions, follow-up care, medications, Prescriptions given X 2, 12:46 Patient left the ED. cp4 Signatures: Dispatcher [employer] Aparna Talbert RN RN iw Corral, Edwin, MD MD ec2 Potter, Christina cp4
[2023-08-21 12:52] VITALS: BP 132/74; TEMP 97.9; O2SAT 98
== END ==
LOC: ER 10:10
DX: B34.9 Viral infection, unspecified (principal); R19.7 Diarrhea, unspecified; I10 Essential (primary) hypertension; Z88.0 Allergy status to penicillin; Z88.2 Allergy status to sulfonamides
CPT/HCPCS: 85025; 36415; 80053; 71045; J2765; J1200; J7030

== ENCOUNTER 2024-02-09 11:20 | Emergency (ER) | payer OTHER ==
[2024-02-09 12:11] LABS: Absolute Eosinophils 0.1 K/uL (0-0.5); Absolute Lymphocytes (CBC) 1.1 K/uL (0.7-4.9); Absolute Neutrophil 4.4 K/uL (1.8-8.0); Basophils % 0.7 % (0-1.3); Eosinophils % 0.9 % (0-4.4); Hematocrit 43.5 % (36.0-45.0); Hemoglobin 14.3 g/dL (12.0-15.0); Lymphocytes % 16.3 % (15.3-44.8); MCH 28.5 pg (27.0-35.0); MCHC 32.8 g/dL (32.0-36.0); MPV 8.5 fL (7.6-11.3); Monocytes % 15.3 % (3.3-12.3); Neutrophils % 66.8 % (41.7-73.7); Platelets 163 thou/uL (152-406); Red Cell Distribution Width 14.3 % (12.1-15.2)
[2024-02-09] MEDS ORDERED: KETOROLAC 30 MG/ML INJ ONE (12:14)
[2024-02-09] MEDS ORDERED: ONDANSETRON 4 MG/2 ML VIAL ONE (12:14)
[2024-02-09 12:24] LABS: SARS-CoV-2 Antigen CONTROL BLUE LINE VIS/BG OK
[2024-02-09 12:25] LABS: SARS-CoV-2 Antigen Rapid Res Positive (Negative)
[2024-02-09 12:31] LABS: Albumin 3.7 g/dL (3.4-5.0); Albumin/Globulin Ratio 0.9 (1.1-1.8); Anion Gap 10.7 mEq/L (5.0-15.0); Bilirubin Total 0.8 mg/dL (0.2-1.0); Globulin 3.9 g/dL (2.3-3.5); Potassium 3.7 mEq/L (3.5-5.1); Protein, Total 7.6 g/dL (6.4-8.2)
--- NOTE | 2024-02-09 12:56 | EDPHYS ---
Physician Documentation [facility] Name: Awa Tracy Age: 68 yrs Sex: Female : 1955 Arrival Date: 02/09/2024 Time: 11:20 Bed 15 Private MD: ED Physician Donny Shin HPI: 02/08 12:02 This 68 yrs old Female presents to ER via Ambulatory with complaints of Fever. sb4 12:02 Intermittent fever x 4 days associated with diarrhea, nausea, nasal congestion, cough, sb4 fatigue, malaise. Unknown sick contacts. Had a stent placed in her tear duct last week, no issues. Denies any vomiting, chest pain, or shortness of breath. Historical: - Allergies: 11:57 PENICILLINS; nj1 11:57 Sulfa (Sulfonamide Antibiotics); nj1 11:57 tramadol; nj1 11:57 Bactrim; nj1 - PMHx: 11:57 Hyperlipidemia; Hypertension; overactive bladder; shingles; nj1 - PSHx: 11:57 Appendectomy; Cholecystectomy; Hysterectomy; Back surgery; Operative procedure on knee; nj1 Shoulder surgery; - Immunization history:: Client reports receiving the 2nd dose of the Covid vaccine. - Infectious Disease History:: Denies. - Social history:: Smoking status: Patient denies any tobacco usage or history of. ROS: 12:02 Cardiovascular: Negative for chest pain, palpitations, and edema, sb4 12:02 Constitutional: Positive for body aches, chills, fatigue, fever, malaise, 12:02 ENT: Positive for sinus congestion, 12:02 Respiratory: Positive for cough, 12:02 Abdomen/GI: Positive for nausea, diarrhea, abdominal cramps, 12:02 All other systems are negative, Exam: 12:02 Head/Face: Normocephalic, atraumatic. Eyes: Extra-ocular motions intact. Periorbital sb4 areas with no swelling, redness, or edema. ENT: Mucous membranes moist. Cardiovascular: Regular rate and rhythm with a normal S1 and S2. Respiratory: Lungs have equal breath sounds bilaterally, clear to auscultation and percussion. No rales, rhonchi or wheezes noted. No increased work of breathing, no retractions or nasal flaring. Abdomen/GI: Soft, non-tender, no distension. Skin: Warm, dry with normal turgor. Normal color with no rashes, no lesions, and no evidence of cellulitis. MS/ Extremity: Pulses equal, no cyanosis. Neurovascular intact. Full, normal range of motion. 12:02 Constitutional: The patient appears alert, awake, obviously ill, Vital Signs: 11:41 BP 137 / 86; Pulse 86; Resp 20; Temp 98.9(O); Pulse Ox 97% on R/A; Weight 70.31 kg; nj1 Height 5 ft. 4 in. ; Pain 8/10; 13:06 BP 128 / 62; Pulse 77; Resp 15; Pulse Ox 99% ; bp 11:41 Body Mass Index 26.61 (70.31 kg, 162.56 cm) nj1 11:41 Pain Scale: Adult nj1 MDM: 11:33 Patient medically screened. sb4 12:25 Data reviewed: vital signs, nurses notes, lab test result(s), and as a result, I will sb4 discharge patient. Counseling: I had a detailed discussion with the patient and/or guardian regarding the historical points, exam findings, and any diagnostic results supporting the discharge/admit diagnosis, lab results, to return to the emergency department if symptoms worsen or persist or if there are any questions or concerns that arise at home. 02/08 11:51 Order name: CBC with Diff; Complete Time: 12:13 sb4 02/08 11:51 Order name: CMP; Complete Time: 12:31 sb4 02/08 11:51 Order name: SARS RAPID; Complete Time: 12:26 sb4 02/08 11:51 Order name: IV Saline Lock; Complete Time: 12:01 sb4 02/08 11:51 Order name: Labs collected and sent; Complete Time: 12:01 sb4 Administered Medications: 12:01 Drug: NS 0.9% IV 1000 ml IV at 1 bolus Per protocol; 1000 mL bolus Route: IV; Rate: 1 bp bolus; Site: right forearm; 13:08 Follow up: IV Status: Completed infusion bp 12:16 Drug: Ketorolac IVP 15 mg IVP once Route: IVP; Site: right forearm; bp 13:08 Follow up: Response: No adverse reaction bp 12:17 Drug: Ondansetron IVP 4 mg IVP once; over 2 minutes Route: IVP; Site: right forearm; bp 13:08 Follow up: Response: No adverse reaction bp Disposition: 13:52 Co-signature as Attending Physician, Donny Shin MD I reviewed the patient's care rn provided by the Advanced Practice Provider and agree with the diagnosis and treatment plan. Disposition Summary: 02/09/24 12:55 Discharge Ordered Notes: Location: Home sb4 Problem: an ongoing problem sb4 Symptoms: have improved sb4 Condition: Stable sb4 Diagnosis - SARS-associated coronavirus as the cause of diseases classified elsewhere sb4 Followup: sb4 - With: Emergency Department - When: As needed - Reason: Trouble breathing, Worsening of condition Discharge Instructions: - Discharge Summary Sheet sb4 - 10 Things You Can Do to Manage Your COVID-19 Symptoms at Home - [facility] [place]NOTE 2[place] (01/13/2021) sb4 Forms: - Patient Portal Instructions sb4 - Leadership Thank You Letter sb4 Prescriptions: - Zofran 4 mg Oral Tablet - take 1 tablet ORAL route every 12 hours As needed; 20 tablet; Refills: 0, sb4 Product Selection Permitted - Tessalon Perles 100 mg Oral Capsule - take 1 capsule ORAL route every 8 hours As needed; 15 capsule; Refills: 0, sb4 Product Selection Permitted - Lomotil 2.5-0.025 mg Oral Tablet - take 2 tablets ORAL route once daily As needed; 20 tablet; Refills: 0, Product sb4 Selection Permitted Signatures: Dispatcher [employer] Donny Del Castillo MD MD rn Peltier, Brian, RN RN Josselyn Gauthier PADannielle PAAnaC sb4 Adina Guerrero RN RN nj1
--- NOTE | 2024-02-09 12:56 | ER ---
Nurse's Notes [facility] Name: Awa Tracy Age: 68 yrs Sex: Female : 1955 Arrival Date: 02/09/2024 Time: 11:20 Bed 15 Private MD: Diagnosis: SARS-associated coronavirus as the cause of diseases classified elsewhere Presentation: 02/08 11:41 Chief complaint: Patient states: Diarrhea, fever, cough, congestion, nausea for 4 days, nj1 getting worse. Had tylenol last night. No OTC meds today. States she had an eye stent placed on Jan 30. 11:41 Coronavirus screen: Vaccine status: Patient reports receiving the 2nd dose of the covid nj1 vaccine. Ebola Screen: Patient denies travel to an Ebola-affected area in the 21 days before illness onset. Initial Sepsis Screen: Does the patient meet any 2 criteria? No. Patient's initial sepsis screen is negative. Does the patient have a suspected source of infection? No. Patient's initial sepsis screen is negative. Risk Assessment: Do you want to hurt yourself or someone else? Patient reports no desire to harm self or others. Onset of symptoms was February 05, 2024. 11:41 Method Of Arrival: Ambulatory [facility] 11:41 Acuity: NICHOL 3 nj1 Triage Assessment: 12:00 General: Appears in no apparent distress. ill, Behavior is calm, cooperative, bp appropriate for age. Pain: Denies pain. EENT: Reports nasal congestion. Neuro: No deficits noted. Cardiovascular: No deficits noted. Respiratory: No deficits noted. GI: Reports nausea. Historical: - Allergies: 11:57 PENICILLINS; nj1 11:57 Sulfa (Sulfonamide Antibiotics); nj1 11:57 tramadol; nj1 11:57 Bactrim; nj1 - PMHx: 11:57 Hyperlipidemia; Hypertension; overactive bladder; shingles; nj1 - PSHx: 11:57 Appendectomy; Cholecystectomy; Hysterectomy; Back surgery; Operative procedure on knee; nj1 Shoulder surgery; - Immunization history:: Client reports receiving the 2nd dose of the Covid vaccine. - Infectious Disease History:: Denies. - Social history:: Smoking status: Patient denies any tobacco usage or history of. Screenin:06 [facility] ED Fall Risk Assessment (Adult) History of falling in the last 3 months, bp including since admission No falls in past 3 months (0 pts) Confusion or Disorientation No (0 pts) Intoxicated or Sedated No (0 pts) Impaired Gait No (0 pts) Mobility Assist Device Used No (0 pt) Altered Elimination No (0 pt) Score/Fall Risk Level 0 - 2 = Low Risk. Abuse screen: Denies threats or abuse. Denies injuries from another. Nutritional screening: No deficits noted. Tuberculosis screening: No symptoms or risk factors identified. Assessment: 12:00 General: Appears in no apparent distress. uncomfortable, ill, Behavior is calm, bp cooperative, appropriate for age. 13:06 Reassessment: Patient appears in no apparent distress at this time. Patient states bp symptoms have improved. Vital Signs: 11:41 BP 137 / 86; Pulse 86; Resp 20; Temp 98.9(O); Pulse Ox 97% on R/A; Weight 70.31 kg; nj1 Height 5 ft. 4 in. ; Pain 8/10; 13:06 BP 128 / 62; Pulse 77; Resp 15; Pulse Ox 99% ; bp 11:41 Body Mass Index 26.61 (70.31 kg, 162.56 cm) nj1 11:41 Pain Scale: Adult [facility] ED Course: 11:24 Patient arrived in ED. ra3 11:28 Josselyn Armenta PA-C is PHCP. sb4 11:28 Donny Shin MD is Attending Physician. sb4 11:47 Tyrese Hunter, EJ is Primary Nurse. bp 11:57 Triage completed. nj1 11:59 Arm band placed on. nj1 12:01 Initial lab(s) drawn, by ne, sent to lab. COVID swab sent to lab. Inserted saline lock: bp 22 gauge in right forearm, using aseptic technique. Blood collected. Flushed with 10 mL NS. 13:06 Patient has correct armband on for positive identification. bp 13:06 No provider procedures requiring assistance completed. IV discontinued, intact, bp bleeding controlled, No redness/swelling at site. Pressure dressing applied. Administered Medications: 12:01 Drug: NS 0.9% IV 1000 ml IV at 1 bolus Per protocol; 1000 mL bolus Route: IV; Rate: 1 bp bolus; Site: right forearm; 13:08 Follow up: IV Status: Completed infusion bp 12:16 Drug: Ketorolac IVP 15 mg IVP once Route: IVP; Site: right forearm; bp 13:08 Follow up: Response: No adverse reaction bp 12:17 Drug: Ondansetron IVP 4 mg IVP once; over 2 minutes Route: IVP; Site: right forearm; bp 13:08 Follow up: Response: No adverse reaction bp Medication: 13:06 VIS not applicable for this client. bp Outcome: 12:55 Discharge ordered by MD. parada 13:06 Discharged to home ambulatory, with family, bp 13:06 Condition: stable 13:06 Discharge instructions given to patient, family, Instructed on discharge instructions, follow up and referral plans. medication usage, Demonstrated understanding of instructions, follow-up care, medications, Prescriptions given X 3, 13:09 Patient left the ED. bp Signatures: Tyrese Hunter, RN RN Josselyn Gauthier, PA-C PA-C sb4 Adina Guerrero RN RN nj1 Ela Mueller ra3 Corrections: (The following items were deleted from the chart) 11:59 11:41 Chief complaint: Patient states: Diarrhea, fever, cough, congestion, nausea for 4 nj1 days, getting worse. Had tylenol last night. No OTC meds today. nj1 13:06 13:05 General: Appears in no apparent distress. ill, Behavior is calm, cooperative, bp appropriate for age, bp 13:06 13:05 Pain: Denies pain. bp bp 13:06 13:05 EENT: Reports nasal congestion bp bp 13:06 13:05 Neuro: No deficits noted. bp bp 13:06 13:05 Cardiovascular: No deficits noted. bp bp 13:06 13:05 Respiratory: No deficits noted. bp bp 13:06 13:05 GI: Reports nausea, bp bp
[2024-02-09 13:46] VITALS: TEMP 98.9
[2024-02-09 13:47] VITALS: BP 128/62; O2SAT 99
== END 2024-02-09 13:09 | disposition home or self-care (01) ==
LOC: ER 11:20
DX: U07.1 COVID-19 (principal)
CPT/HCPCS: 96361; 85025; 36415; 80053; 96375; 96374; 99284; 87811; J2405

== ENCOUNTER 2024-02-15 21:52 | Emergency (ER) | payer OTHER ==
[2024-02-15] MEDS ORDERED: NA CHLORIDE 0.9% 1,000 ML ONE (23:53)
[2024-02-15] MEDS ORDERED: FAMOTIDINE 20 MG/2 ML VIAL IV ONE (23:53)
[2024-02-15] MEDS ORDERED: ONDANSETRON 4 MG/2 ML VIAL ONE (23:53)
[2024-02-16 00:02] LABS: Absolute Eosinophils 0.1 K/uL (0-0.5); Absolute Lymphocytes (CBC) 1.7 K/uL (0.7-4.9); Absolute Monocytes 0.4 K/uL (0.1-1.3); Absolute Neutrophil 4.1 K/uL (1.8-8.0); Basophils % 0.7 % (0-1.3); Hematocrit 39.9 % (36.0-45.0); Hemoglobin 13.2 g/dL (12.0-15.0); Lymphocytes % 27.2 % (15.3-44.8); MCH 28.5 pg (27.0-35.0); MCHC 33.1 g/dL (32.0-36.0); MCV 86.1 fL (80-100); MPV 7.9 fL (7.6-11.3); Monocytes % 6.8 % (3.3-12.3); Neutrophils % 63.3 % (41.7-73.7); Platelets 224 thou/uL (152-406); RBC Red Blood Cell Count 4.63 M/uL (3.86-4.86); Red Cell Distribution Width 13.7 % (12.1-15.2)
[2024-02-16 00:03] LABS: Specific Gravity 1.026 (1.005-1.030); Sqamous Epithelial None Seen /HPF (None Seen); Urine Bacteria None Seen /HPF (<20); Urine Bilirubin NEGATIVE (Negative); Urine Blood Trace (Negative); Urine Clarity Clear (Clear); Urine Color Yellow (Yellow); Urine Culture Reflex Order NOT NEEDED; Urine Glucose NEGATIVE (Negative); Urine Ketones NEGATIVE (Negative); Urine Microscopic Reflex YN ORDER UMIC; Urine Nitrite NEGATIVE (Negative); Urine Protein TRACE (Negative); Urine RBC <5 /HPF (None Seen); Urine Urobilinogen 1+ (Normal); Urine WBC <5 /HPF (<5); Urine pH 5.5 (5.0-7.0)
[2024-02-16 00:06] LABS: PT Prothrombin Time 10.3 SECONDS (9.4-12.5); Protime INR 0.92
[2024-02-16 00:21] LABS: Albumin 3.6 g/dL (3.4-5.0); Albumin/Globulin Ratio 0.9 (1.1-1.8); Anion Gap 9.5 mEq/L (5.0-15.0); Bilirubin Total 0.3 mg/dL (0.2-1.0); Globulin 3.9 g/dL (2.3-3.5); Potassium 3.5 mEq/L (3.5-5.1); Protein, Total 7.5 g/dL (6.4-8.2); Troponin High Sensitivity 3.9 pg/mL (<58.9)
--- NOTE | 2024-02-16 03:16 | EDPHYS ---
Physician Documentation [facility] Name: Awa Tracy Age: 68 yrs Sex: Female : 1955 Arrival Date: 02/15/2024 Time: 21:52 Bed 6 Private MD: ED Physician Kade Shields HPI: 02/14 23:00 This 68 yrs old Female presents to ER via Ambulatory with complaints of cp General Weakness, Nausea, Fever. Historical: - Allergies: 22:26 Bactrim; vc1 22:26 PENICILLINS; vc1 22:26 Sulfa (Sulfonamide Antibiotics); vc1 22:26 tramadol; vc1 - PMHx: 22:26 Hyperlipidemia; Hypertension; overactive bladder; shingles; vc1 - PSHx: 22:26 Appendectomy; back surgery; Cholecystectomy; hysterectomy; Operative procedure on knee; vc1 shoulder surgery; - Immunization history:: Client reports receiving the 2nd dose of the Covid vaccine. - Infectious Disease History:: Denies. - Social history:: Smoking status: Patient denies any tobacco usage or history of. ROS: 23:05 Constitutional: Positive for fever, poor PO intake, cp 23:05 Cardiovascular: Negative for chest pain, edema, palpitations, cp 23:05 Respiratory: Negative for wheezing, Exam: 23:35 ECG was reviewed by the Attending Physician. cp 23:38 Constitutional: The patient appears in no acute distress, alert, awake, non-toxic, well cp developed, well nourished, uncomfortable, 23:38 Head/Face: Normocephalic, atraumatic. cp 23:38 Eyes: Periorbital structures: appear normal, Conjunctiva: normal, no exudate, no injection, Sclera: no appreciated abnormality, Lids and lashes: appear normal, bilaterally, 23:38 ENT: External ear(s): are unremarkable, Nose: is normal, Mouth: Lips: dry, Oral mucosa: moist, Posterior pharynx: Airway: no evidence of obstruction, patent, 23:38 Neck: ROM/movement: is normal, is supple, without pain, no range of motions limitations, no meningismus, 23:38 Chest/axilla: Inspection: normal, 23:38 Cardiovascular: Rate: normal, Rhythm: regular, Edema: is not appreciated, JVD: is not appreciated, 23:38 Respiratory: the patient does not display signs of respiratory distress, Respirations: normal, no use of accessory muscles, no retractions, labored breathing, is not present, Breath sounds: are clear throughout, no decreased breath sounds, no stridor, no wheezing, 23:38 Abdomen/GI: Inspection: abdomen appears normal, Bowel sounds: active, all quadrants, Palpation: soft, in all quadrants, moderate abdominal tenderness, in the epigastric area, rebound tenderness, is not appreciated, involuntary guarding, is not appreciated, 23:38 Back: CVA tenderness, is absent, 23:38 Neuro: Orientation: to person, place \T\ time. Mentation: able to follow commands, Motor: moves all fours, no focal deficits, Vital Signs: 22:24 Weight 68.04 kg; Height 5 ft. 4 in. ; vc1 22:26 BP 131 / 75; Pulse 75; Resp 18; Temp 98.3; Pulse Ox 97% ; vc1 23:30 BP 131 / 81; Pulse 71; Resp 18; Pulse Ox 99% ; 4 02/15 00:30 BP 154 / 70; Pulse 64; Resp 18; Pulse Ox 98% ; cp4 03:22 BP 142 / 84; Pulse 78; Resp 18; Temp 98.6; Pulse Ox 100% ; Pain 0/10; [facility] 02/14 22:24 Body Mass Index 25.75 (68.04 kg, 162.56 cm) vc1 03:22 Pain Scale: Adult 8 MDM: 02/14 22:29 Patient medically screened. 02/15 01:51 Data reviewed: vital signs. ED course: Patient recently diagnosed with COVID, came in ec2 with abdominal pain, generalized fatigue. Lab work is unremarkable, plan is follow-up CT imaging. . 03:12 ED course: CT of abdomen shows no acute intra-abdominal process. Will discharge home, ec2 suspect sequela of COVID causing the patient's symptoms. Return precautions given. . 02/14 22:52 Order name: CBC with Diff; Complete Time: 00:19 02/14 22:52 Order name: CMP; Complete Time: 01:04 02/15 01:04 Interpretation: Normal except: CL 111; GFR 77; GLOB 3.9; A/G 0.9. 02/14 22:52 Order name: Lactate w/ 2H reflex if indic.; Complete Time: 01:04 cp 02/15 01:05 Interpretation: Reviewed. 02/14 22:52 Order name: Protime (+inr); Complete Time: 00:19 02/14 22:52 Order name: Ptt, Activated; Complete Time: 00:19 cp 02/14 22:52 Order name: Urinalysis w/ reflexes; Complete Time: 00:19 02/15 01:05 Interpretation: Normal except: UBLD Trace; UPROT TRACE; UUROB 1+. 02/14 22:52 Order name: Troponin High Sensitivity; Complete Time: 01:04 02/15 00:21 Order name: CT Abd/Pelvis - IV Contrast Only 02/15 00:21 Order name: XRAY Chest (1 view) 02/14 22:52 Order name: Accucheck; Complete Time: 23:49 02/14 22:52 Order name: Cardiac monitoring; Complete Time: 23:34 02/14 22:52 Order name: EKG - Nurse/Tech; Complete Time: 23:34 02/14 22:52 Order name: IV Saline Lock - Large Bore; Complete Time: 23:49 02/14 22:52 Order name: Labs collected and sent; Complete Time: 23:49 02/14 22:52 Order name: O2 Per Protocol; Complete Time: 23:34 cp 02/14 22:52 Order name: O2 Sat Monitoring; Complete Time: 23:34 cp 02/14 22:52 Order name: Vital Signs; Complete Time: 23:34 cp EC/17 23:35 Rate is 69 beats/min. Rhythm is regular. MT interval is prolonged at 214 msec. QRS cp interval is normal. QT interval is normal. T waves are Inverted in lead aVR. Interpreted by me. Reviewed by me. Administered Medications: 23:56 Drug: Famotidine IVP 20 mg IVP once; dilute with 10 mL 0.9% NaCl; give over 2 minutes cp4 Route: IVP; Site: right antecubital; 02/15 03:23 Follow up: Response: No adverse reaction 4 02/14 23:57 Drug: NS 0.9% IV 1000 ml IV at 999 ml/hr Per protocol Route: IV; Rate: 999 ml/hr; Site: cp4 right antecubital; 02/15 01:03 Follow up: Response: No adverse reaction; IV Status: Completed infusion cp4 02/14 23:57 Drug: Ondansetron IVP 4 mg IVP once; over 2 minutes Route: IVP; Site: right antecubital;cp4 02/15 03:23 Follow up: Response: No adverse reaction; Nausea is decreased cp4 Disposition Summary: 02/16/24 03:16 Discharge Ordered Notes: Location: Home ec2 Condition: Stable ec2 Diagnosis - SARS-associated coronavirus as the cause of diseases classified elsewhere ec2 Followup: ec2 - With: Private Physician - When: - Reason: Re-evaluation by your physician Discharge Instructions: - Discharge Summary Sheet ec2 - COVID-19 ec2 Forms: - Medication Reconciliation Form ec2 - Antibiotic Education ec2 - Prescription Opioid Use ec2 - Patient Portal Instructions ec2 - Leadership Thank You Letter ec2 Prescriptions: - Reglan 10 mg Oral Tablet - take 1 tablet ORAL route every 6 hours take 30 minutes before meals and at ec2 bedtime; 20 tablet; Refills: 0, Product Selection Permitted Signatures: Dispatcher [employer] EDMS Otoniel Chiu PA PA cp Ana Lilia León, RN RN vc1 Kade Shields MD MD ec2 Ashley Hurtado cp4 Benson Tejada RN RN [id number] Corrections: (The following items were deleted from the chart) 02/14 22:53 22:53 CBC+H.LAB.BRZ ordered. EDMS EDMS 22:53 22:53 COMPREHENSIVE METABOLIC PANEL+C.LAB.BRZ ordered. EDMS EDMS 22:53 22:53 LACTATE+C.LAB.BRZ ordered. EDMS EDMS 22:53 22:53 PROTIME (+INR)+COAG.LAB.BRZ ordered. EDMS EDMS 22:53 22:53 PTT, ACTIVATED+COAG.LAB.BRZ ordered. EDMS EDMS 22:53 22:53 Urinalysis+U.LAB.BRZ ordered. EDMS EDMS 22:53 22:53 Troponin High Sensitivity+C.LAB.BRZ ordered. EDMS EDMS 02/15 00:21 00:21 Chest Single View+RAD.RAD.BRZ ordered. EDMS EDMS
--- NOTE | 2024-02-16 03:16 | ER ---
Nurse's Notes [facility] Name: Awa Tracy Age: 68 yrs Sex: Female : 1955 Arrival Date: 02/15/2024 Time: 21:52 Bed 6 Private MD: Diagnosis: SARS-associated coronavirus as the cause of diseases classified elsewhere Presentation: 02/14 22:24 Chief complaint: Patient states: Came last Saturday was covid positive. Still can't get vc1 rid of diarrhea, stomach bloated, weak. Coronavirus screen: Client denies travel out of the [place] in the last 14 days. congestion, diarrhea, fatigue, fever, nausea, runny nose, sore throat, Client presents with at least one sign or symptom that may indicate coronavirus-19. Ebola Screen: Patient negative for fever greater than or equal to 101.5 degrees Fahrenheit, and additional compatible Ebola Virus Disease symptoms Patient denies exposure to infectious person. Patient denies travel to an Ebola-affected area in the 21 days before illness onset. No symptoms or risks identified at this time. Initial Sepsis Screen: Does the patient meet any 2 criteria? No. Patient's initial sepsis screen is negative. Does the patient have a suspected source of infection? No. Patient's initial sepsis screen is negative. Risk Assessment: Do you want to hurt yourself or someone else? Patient reports no desire to harm self or others. Onset of symptoms is unknown. Care prior to arrival: None. Activity prior to arrival: None. Mechanism of Injury: No Mechanism of Injury. Transition of care: patient was not received from another setting of care. 22:24 Method Of Arrival: Ambulatory vc1 22:24 Acuity: NICHOL 3 vc1 Triage Assessment: 02/15 03:22 GI: Reports nausea. cp4 Historical: - Allergies: 02/14 22:26 Bactrim; vc1 22:26 PENICILLINS; vc1 22:26 Sulfa (Sulfonamide Antibiotics); vc1 22:26 tramadol; vc1 - PMHx: 22:26 Hyperlipidemia; Hypertension; overactive bladder; shingles; vc1 - PSHx: 22:26 Appendectomy; back surgery; Cholecystectomy; hysterectomy; Operative procedure on knee; vc1 shoulder surgery; - Immunization history:: Client reports receiving the 2nd dose of the Covid vaccine. - Infectious Disease History:: Denies. - Social history:: Smoking status: Patient denies any tobacco usage or history of. Screenin:49 [facility] ED Fall Risk Assessment (Adult) History of falling in the last 3 months, cp4 including since admission No falls in past 3 months (0 pts) Confusion or Disorientation No (0 pts) Intoxicated or Sedated No (0 pts) Impaired Gait No (0 pts) Mobility Assist Device Used No (0 pt) Altered Elimination No (0 pt) Score/Fall Risk Level 0 - 2 = Low Risk Oriented to surroundings, Maintained a safe environment, Assessed \T\ reinforced patient's understanding of fall precautions, Hourly rounding (assess needs \T\ fall precautionary measures) done. Abuse screen: Denies threats or abuse. Nutritional screening: No deficits noted. Tuberculosis screening: No symptoms or risk factors identified. Assessment: 23:49 General: Appears distressed, ill, Behavior is calm, cooperative, appropriate for age. cp4 Pain: Denies pain. Neuro: Level of Consciousness is awake, alert, obeys commands, Oriented to person, place, time, situation. Cardiovascular: Rhythm is sinus rhythm with 1st degree heart block. Respiratory: Airway is patent Respiratory effort is even, unlabored. GI: Abdomen is round non-distended, Bowel sounds present X 4 quads. Abd is soft and non tender X 4 quads. : No signs and/or symptoms were reported regarding the genitourinary system. EENT: No signs and/or symptoms were reported regarding the EENT system. Derm: No signs and/or symptoms reported regarding the dermatologic system. Musculoskeletal: No signs and/or symptoms reported regarding the musculoskeletal system. Vital Signs: 22:24 Weight 68.04 kg; Height 5 ft. 4 in. ; vc1 22:26 BP 131 / 75; Pulse 75; Resp 18; Temp 98.3; Pulse Ox 97% ; vc1 23:30 BP 131 / 81; Pulse 71; Resp 18; Pulse Ox 99% ; cp4 08 00:30 BP 154 / 70; Pulse 64; Resp 18; Pulse Ox 98% ; cp4 03:22 BP 142 / 84; Pulse 78; Resp 18; Temp 98.6; Pulse Ox 100% ; Pain 0/10; jh8 02/14 22:24 Body Mass Index 25.75 (68.04 kg, 162.56 cm) vc1 03:22 Pain Scale: Adult [facility] ED Course: 02/14 21:54 Patient arrived in ED. jj6 21:55 [facility]iu [facility]. cp 21:55 Kade Shields MD is Attending Physician. cp 22:26 Triage completed. vc1 22:26 Arm band placed on left wrist. vc1 23:48 Ashley Hurtado is Primary Nurse. cp4 23:49 Bed in low position. Call light in reach. Side rails up X 1. cp4 23:49 CBC with Diff Sent. cp4 23:49 CMP Sent. cp4 23:49 Lactate w/ 2H reflex if indic. Sent. cp4 23:49 Protime (+inr) Sent. cp4 23:49 Ptt, Activated Sent. cp4 23:49 Urinalysis w/ reflexes Sent. cp4 23:49 Troponin High Sensitivity Sent. cp4 23:49 No provider procedures requiring assistance completed. Initial lab(s) drawn, by dc, 4 sent to lab. Urine collected: clean catch specimen, cloudy, EKG done, by ED staff, reviewed by Otoniel HENRY. Inserted saline lock: 22 gauge in right antecubital area, using aseptic technique. Blood collected. Flushed with 10 mL NS. 02/15 01:08 CT Abd/Pelvis - IV Contrast Only In Process Unspecified. EDMS 01:25 XRAY Chest (1 view) In Process Unspecified. EDMS 03:21 Provided Education on: follow up. [facility] 03:21 IV discontinued. [facility] Administered Medications: 02/14 23:56 Drug: Famotidine IVP 20 mg IVP once; dilute with 10 mL 0.9% NaCl; give over 2 minutes [facility] Route: IVP; Site: right antecubital; 02/15 03:23 Follow up: Response: No adverse reaction [facility] 02/14 23:57 Drug: NS 0.9% IV 1000 ml IV at 999 ml/hr Per protocol Route: IV; Rate: 999 ml/hr; Site: cp4 right antecubital; 02/15 01:03 Follow up: Response: No adverse reaction; IV Status: Completed infusion [facility] 02/14 23:57 Drug: Ondansetron IVP 4 mg IVP once; over 2 minutes Route: IVP; Site: right antecubital;cp4 02/15 03:23 Follow up: Response: No adverse reaction; Nausea is decreased cp4 Medication: 02/14 23:49 VIS not applicable for this client. cp4 Outcome: 02/15 03:16 Discharge ordered by . [email or web address] 03:21 Discharged to home ambulatory, 8 03:21 Condition: good 03:21 Discharge instructions given to patient, Instructed on discharge instructions, follow up and referral plans. medication usage, Demonstrated understanding of instructions, follow-up care, medications, Prescriptions given X 1, 03:23 Patient left the ED. jh8 Signatures: Dispatcher [employer] EDMS Otoniel Chiu PA PA cp Jeffries, Jennifer jj6 Ana Lilia León RN RN vc1 Kade Shields MD MD ec2 Ashley Hurtado cp4 Benson Tejada, RN RN jh8
[2024-02-16 04:11] VITALS: BP 142/84; TEMP 98.6; O2SAT 100
--- NOTE | 2024-02-18 11:43 | RAD REPORT ---
EXAM DESCRIPTION: RAD - Chest Single View - 02/16/2024 1:23 am CLINICAL HISTORY: Weakness. COMPARISON: None. TECHNIQUE: XR CHEST 1 VIEW 02/16/2024 12:21 AM CDT FINDINGS: The heart is mildly enlarged. Lungs are clear without consolidation, atelectasis, mass or edema. There is no pleural effusion. There is no pneumothorax. There are no acute osseous findings. IMPRESSION: Clear lungs. Electronically signed by: Roddy Reich MD 02/16/2024 02:30 AM CDT RP Due to temporary technical issues with the PACS/Fluency reporting system, reports are being signed by the in house radiologist without review as a courtesy to ensure prompt reporting. The interpreting r adiologist is fully responsible for the content of the report.
--- NOTE | 2024-02-18 15:10 | RAD REPORT ---
EXAM DESCRIPTION: CT - Abdomen Pelvis W Contrast - 02/18/2024 2:04 pm CLINICAL HISTORY: The patient is 68 years old and is Female; ABD PAIN; IV ONLY Bed Name: 6; TECHNIQUE: Axial computed tomography images of the abdomen and pelvis with intravenous contrast. S agittal and coronal reformatted images were created and reviewed. This CT exam was performed using one or more of the following dose reduction techniques: automated exposure control, adjustment of t he mA and/or kV according to patient size, and/or use of iterative reconstruction technique. COMPARISON: No relevant prior studies available. FINDINGS: Lung bases: No acute infiltrate. ABDOMEN: Liver: No abnormality noted. Gallbladder and bile ducts: No calcified stones. No ductal dilation. Pancreas: Homogeneous enhancement. No mass, inflammation or ductal dilation. Spleen: No splenomegaly. Adrenals: No mass. Kidneys and ureters: No solid mass. No hydronephrosis. Stomach and bowel: Stomach grossly normal. Bowel nondilated or thickened. Diverticulosis coli wit hout acute diverticulitis. PELVIS: Appendix: Prior appendectomy. Bladder: Bladder mildly filled, not thickened. Reproductive: Prior hysterectomy. ABDOMEN and PELVIS: Intraperitoneal space: No abnormal extraluminal air or fluid. Bones/joints: No acute fracture or dislocation. No aggressive lesion. Soft tissues: Normal body wall soft tissues. Vasculature: Scattered atherosclerotic plaque of the aorta. No aneurysm or dissection. Widely pat ent celiac trunk and SMA. Lymph nodes: No enlarged lymph nodes. IMPRESSION: 1. No acute intra-abdominal or pelvic abnormality. 2. Diverticulosis coli without acute diverticulitis. Electronically signed by: Lavinia Douglas MD 02/16/2024 03:10 AM [facility] Due to temporary technical issues with the PACS/Fluency reporting system, reports are being signed by the in house radiologists without review as a courtesy to insure prompt reporting. The interpreting radiologist is fully responsible for the content of the report.
--- NOTE | 2024-02-18 17:54 | EKG ---
Test Date: 2024-02-15 Test Time: 23:30:59 Advertising Sales Agent: RADHA MEASUREMENT RESULTS: Intervals: Rate: 69 VA: 214 QRSD: 94 QT: 396 QTc: 424 [place]: P: 50 VA: 214 QRS: -1 T: 36 INTERPRETIVE STATEMENTS: Sinus rhythm with 1st degree AV block Nonspecific T wave abnormality Abnormal ECG Compared to ECG 09/28/2022 18:43:56 First degree AV block now present T-wave abnormality now present Left ventricular hypertrophy no longer present Myocardial infarct finding no longer present Electronically Signed On 02-18-24 17:48:16 CDT by Juan Anderson
== END 2024-02-16 03:23 | disposition home or self-care (01) ==
LOC: ER 21:52
DX: U07.1 COVID-19 (principal); R11.0 Nausea
CPT/HCPCS: 96361; 85025; 81001; 36415; 85610; 83605; 85730; 84484; 80053; 74177; 71045; 96375; 96374; 99284; Q9967; J2405; J7030; 93005

== ENCOUNTER 2024-02-27 22:39 | Emergency (ER) | payer OTHER ==
[2024-02-27] MEDS ORDERED: NA CHLORIDE 0.9% 1,000 ML ONE (23:39)
[2024-02-27] MEDS ORDERED: GUAIFENESIN/DM 5 ML UCUP ONE (23:39)
[2024-02-28] MEDS ORDERED: ONDANSETRON 4 MG/2 ML VIAL ONE (00:05)
[2024-02-28 01:01] LABS: PT Prothrombin Time 11.1 SECONDS (9.4-12.5); Protime INR 0.99
[2024-02-28 01:03] LABS: Absolute Basophils 0.1 K/uL (0-0.5); Absolute Eosinophils 0.1 K/uL (0-0.5); Absolute Lymphocytes (CBC) 0.6 K/uL (0.7-4.9); Absolute Monocytes 0.8 K/uL (0.1-1.3); Basophils % 2.6 % (0-1.3); Eosinophils % 1.8 % (0-4.4); Hematocrit 42.4 % (36.0-45.0); Hemoglobin 14.1 g/dL (12.0-15.0); Lymphocytes % 11.1 % (15.3-44.8); MCH 28.8 pg (27.0-35.0); MCHC 33.2 g/dL (32.0-36.0); MCV 86.6 fL (80-100); MPV 8.4 fL (7.6-11.3); Monocytes % 13.4 % (3.3-12.3); Neutrophils % 71.1 % (41.7-73.7); Platelets 202 thou/uL (152-406); RBC Red Blood Cell Count 4.89 M/uL (3.86-4.86); Red Cell Distribution Width 14.2 % (12.1-15.2)
[2024-02-28 01:20] LABS: ALT/SGPT 26 U/L (13-56); AST/SGOT 20 U/L (15-37); Albumin 3.8 g/dL (3.4-5.0); Alkaline Phosphatase 83 U/L (45-117); Anion Gap 9.8 mEq/L (5.0-15.0); BUN Blood Urea Nitrogen 11 mg/dL (7-18); Bicarbonate 22 mEq/L (21-32); Bilirubin Total 0.5 mg/dL (0.2-1.0); Glomerular Filtration Rate 91 ml/min (=/>90); Glucose Level 94 mg/dL (74-106); NT PRO-BNP 28 pg/mL (<125); Potassium 3.8 mEq/L (3.5-5.1); Protein, Total 7.8 g/dL (6.4-8.2); Sodium Level 138 mEq/L (136-145)
[2024-02-28 01:23] LABS: Bilirubin Direct < 0.2 mg/dL (0-0.2); Bilirubin Indirect, Calculated 0.3 mg/dL (0.2-0.8); Troponin High Sensitivity < 3.0 pg/mL (<58.9)
[2024-02-28 01:25] LABS: SARS-CoV-2 Antigen CONTROL BLUE LINE VIS/BG OK; SARS-CoV-2 Antigen Rapid Res Negative (Negative)
--- NOTE | 2024-02-28 02:16 | EDPHYS ---
Physician Documentation [facility] Name: Awa Tracy Age: 68 yrs Sex: Female : 1955 Arrival Date: 02/27/2024 Time: 22:39 Bed 15 Private MD: ED Physician Valentin Clarke HPI: 02/26 22:52 This 68 yrs old Female presents to ER via Ambulatory with complaints of Cough, sp4 Fever, Congestion, Sore Throat. 02/27 06:12 68-year-old female presents with protracted symptoms of productive cough, fever, sp4 congestion, sore throat also difficulty breathing. Historical: - Allergies: 02/26 22:51 Bactrim; ss 22:51 PENICILLINS; ss 22:51 Sulfa (Sulfonamide Antibiotics); ss 22:51 tramadol; ss - PMHx: 22:51 Hyperlipidemia; Hypertension; overactive bladder; shingles; ss - PSHx: 22:51 Appendectomy; back surgery; Cholecystectomy; hysterectomy; Operative procedure on knee; ss shoulder surgery; - Immunization history:: Client reports receiving the 2nd dose of the Covid vaccine. - Infectious Disease History:: Denies. - Social history:: Smoking status: Patient denies any tobacco usage or history of. - Family history:: not pertinent. ROS: 02/27 06:12 Constitutional: Negative for fever, chills, and weight loss, sp4 All other systems are negative, Exam: 06:10 Constitutional: This is a well developed, well nourished patient who is awake, alert, sp4 and in no acute distress. Head/Face: Normocephalic, atraumatic. Eyes: Pupils equal round and reactive to light, extra-ocular motions intact. Lids and lashes normal. Conjunctiva and sclera are not injected. Cornea within normal limits. Periorbital areas with no swelling, redness, or edema. ENT: Nares patent. No nasal discharge, no septal abnormalities noted. Tympanic membranes are normal and external auditory canals are clear. Oropharynx with no redness, swelling, or masses, exudates, or evidence of obstruction, uvula midline. Mucous membranes moist. Neck: Trachea midline, no thyromegaly or masses palpated, and no cervical lymphadenopathy. Supple, full range of motion without nuchal rigidity, or vertebral point tenderness. Chest/axilla: Normal chest wall appearance and motion. Nontender with no deformity. No lesions are appreciated. Cardiovascular: Regular rate and rhythm with a normal S1 and S2. No gallops, murmurs, or rubs. Normal PMI, no JVD. No pulse deficits. Respiratory: Lungs have equal breath sounds bilaterally, clear to auscultation and percussion. No rales, rhonchi or wheezes noted. No increased work of breathing, no retractions or nasal flaring. Abdomen/GI: Soft, with normal bowel sounds. No distension or tympany. No guarding or rebound. No evidence of tenderness throughout. Back: No spinal tenderness. No costovertebral tenderness. Skin: Warm, dry with normal turgor. Normal color with no rashes, no lesions, and no evidence of cellulitis. MS/ Extremity: Pulses equal, no cyanosis. Neurovascular intact. Full, normal range of motion. Neuro: Awake and alert, GCS 15, oriented to person, place, time, and situation. Cranial nerves II-XII grossly intact. Motor strength 5/5 in all extremities. Sensory grossly intact. Psych: Awake, alert, with orientation to person, place and time. Behavior, mood, and affect are within normal limits 06:10 ECG was reviewed by the Attending Physician. EKG at 2352 EKG reveals normal sinus rhythm rate 93 Vital Signs: 02/26 22:50 BP 153 / 93; Pulse 98; Resp 16; Temp 99.6(O); Pulse Ox 100% on R/A; Weight 68.04 kg; Height 5 ft. 4 in. ; Pain 7/10; 02/27 00:00 BP 160 / 87; Pulse 91; Resp 18; Pulse Ox 93% ; jj7 01:00 BP 175 / 83; Pulse 85; Resp 16; Temp 98.6; Pulse Ox 95% ; jj7 01:30 BP 153 / 84; Pulse 86; Resp 17; Pulse Ox 92% ; jj7 02:36 BP 146 / 79; Pulse 96; Resp 17; Temp 98.3; Pulse Ox 93% ; jj7 02/26 22:50 Body Mass Index 25.75 (68.04 kg, 162.56 cm) 02/26 22:50 Pain Scale: Adult MDM: 02/26 23:00 Patient medically screened. sp4 02/27 02:08 ED course: CTA THORAX - PULMONARYARTERIES HISTORY: Suspected pulmonary embolus. sp4 COMPARISON: None. TECHNIQUE: Intravenous low osmolar contrast. Coronal and sagittal reformations including 3D maximum intensity projections. This exam was performed according to our departmental dose-optimization program, which includes automated exposure control, adjustment of the mA and/or kV according to patient size and/or use of iterative reconstruction technique. FINDINGS: PULMONARYARTERIAL SYSTEM: Contrast bolus is adequate. No CT evidence for pulmonary embolism. CARDIAC: Normal. AORTA/VASCULAR: No aneurysm. LYMPH NODES/MEDIASTINUM: No thoracic adenopathy. CENTRAL AIRWAYS: Central airways are patent. Mild diffuse bronchial wall thickening. LUNGS: Multifocal tree-in-bud opacities in the right upper lobe. Bilateral dependent reticular opacities, likely atelectasis. PLEURA: Normal. ESOPHAGUS: Collapsed and not well assessed by CT, without obvious abnormality. THYROID: Negative, where seen. CHEST WALL: Normal. UPPER ABDOMEN: Normal. THORACIC SKELETAL: No acute finding. ADDITIONAL CHEST FINDINGS: None. IMPRESSION: 1. No evidence of acute pulmonary embolus. 2. Multifocal tree-in-bud opacities in the right upper lobe, concerning for atypical infectious/inflammatory process. 3. Mild diffuse bronchial wall thickening, suggesting bronchitis. Electronically signed by: Froy Kwon MD 02/28/2024 01:19 AM. 06:12 Differential Diagnosis: Bronchitis Influenza Upper Respiratory Infection Sinusitis sp4 Pharyngitis Otitis Media. Data reviewed: vital signs, nurses notes, lab test result(s), EKG, radiologic studies, CT scan. Consideration of Admission/Observation Escalation of care including admission/observation considered. ED course: CT has revealed no evidence of pulmonary embolus, multifocal opacification in the right upper lobe concerning for atypical pneumonia. Diffuse bronchial wall thickening suggesting bronchitis.. 02/26 22:52 Order name: SARS RAPID; Complete Time: 02:06 sp4 02/26 23:17 Order name: Basic Metabolic Panel; Complete Time: 02:06 sp4 02/26 23:17 Order name: CBC with Diff; Complete Time: 02:06 sp4 02/26 23:17 Order name: LFT's; Complete Time: 02:06 sp4 02/26 23:17 Order name: NT PRO-BNP; Complete Time: 02:06 sp4 02/26 23:17 Order name: PT-INR; Complete Time: 02:06 sp4 02/26 23:17 Order name: Troponin HS; Complete Time: 02:06 sp4 02/26 23:17 Order name: Strep; Complete Time: 02:06 sp4 02/26 23:17 Order name: Influenza Screen (a \T\ B); Complete Time: 02:06 sp4 02/26 23:17 Order name: CRP; Complete Time: 02:06 4 02/27 00:46 Order name: Throat Culture EDMN 02/26 23:17 Order name: CT Chest For PE [facility] 02/26 23:17 Order name: EKG; Complete Time: 23:18 sp4 02/26 23:17 Order name: Cardiac monitoring; Complete Time: 00:12 4 02/26 23:17 Order name: EKG - Nurse/Tech; Complete Time: 23:54 4 02/26 23:17 Order name: IV Saline Lock; Complete Time: 00:03 4 02/26 23:17 Order name: Labs collected and sent; Complete Time: 00:03 4 02/26 23:17 Order name: O2 Per Protocol; Complete Time: 00:04 4 02/26 23:17 Order name: O2 Sat Monitoring; Complete Time: 00:04 sp4 EC:10 Rate is 93 beats/min. Rhythm is regular, Normal Sinus Rhythm. QRS [place] is Normal. [place] sp4 interval is normal. QRS interval is normal. QT interval is normal. No Q waves. T waves are Normal. No ST changes noted. Clinical impression: No evidence of ischemia. Interpreted by me. Reviewed by me. Administered Medications: 02/26 23:54 Drug: Dextromethorphan-Guaifenesin PO Liquid 10 mg-100 mg/5 mL 10 ml PO once Route: PO; jj7 02/27 02:30 Follow up: Response: No adverse reaction bm8 00:03 Drug: NS 0.9% IV 1000 ml IV at 1 bolus Per protocol; 1000 mL bolus Route: IV; Rate: 1 jj7 bolus; Site: right antecubital; 02:30 Follow up: Response: No adverse reaction; IV Status: Completed infusion; IV Intake: bm8 1000ml 00:07 Drug: Ondansetron IVP 8 mg IVP once; over 2 minutes Route: IVP; Site: right antecubital;jj7 02:30 Follow up: Response: No adverse reaction bm8 02:30 Drug: LevOfloxacin PO 750 mg PO once Route: PO; bm8 02:31 Follow up: Response: No adverse reaction bm8 02:30 Drug: Tessalon Perle PO 200 mg PO once Route: PO; bm8 02:31 Follow up: Response: No adverse reaction bm8 02:30 Drug: Dextromethorphan-Guaifenesin PO Liquid 10 mg-100 mg/5 mL 10 ml PO once Route: PO; bm8 02:31 Follow up: Response: No adverse reaction bm8 Disposition Summary: 02/28/24 02:16 Discharge Ordered Notes: Location: Home sp4 Problem: new sp4 Symptoms: have improved sp4 Condition: Stable sp4 Diagnosis - Other pneumonia, unspecified organism sp4 - Atypical pneumonia , right upper lung pneumonia sp4 Followup: sp4 - With: Siddhartha Luz, DO - When: 7 - 10 days - Reason: Recheck today's complaints Discharge Instructions: - Discharge Summary Sheet sp4 - Community-Acquired Pneumonia, Adult sp4 Forms: - Patient Portal Instructions sp4 Prescriptions: - dextromethorphan-guaifenesin 60-1,200 mg Oral Tablet, Extended Release 12 hr - take 1 tablet ORAL route every 12 hours PRN cough; 60 tablet; Refills: 0, sp4 Product Selection Permitted - benzonatate 200 mg Oral capsule - take 1 capsule ORAL route 3 times per day as needed; 60 capsule; Refills: 0, sp4 Product Selection Permitted - levofloxacin 750 mg Oral tablet - take 1 tablet ORAL route once daily; 7 tablet; Refills: 0, Product Selection sp4 Permitted Signatures: Dispatcher [employer] EDMS Shayy Bajwa RN RN ss Johnson, Juwairiyah RN RN jj7 Valentin Clarke MD MD sp4 Fred Herrera RN RN bm8 Corrections: (The following items were deleted from the chart) 02/26 22:53 22:53 SARS-COV-2 Antigen Rapid+I.LAB.BRZ ordered. EDMS EDMS 23:18 23:18 BASIC METABOLIC PANEL+C.LAB.BRZ ordered. EDMS EDMS 23:18 23:18 CBC+H.LAB.BRZ ordered. EDMS EDMS 23:18 23:18 HEPATIC FUNCTION+C.LAB.BRZ ordered. EDMS EDMS 23:18 23:18 PROBNP+C.LAB.BRZ ordered. EDMS EDMS 23:18 23:18 PROTIME (+INR)+COAG.LAB.BRZ ordered. EDMS EDMS 23:18 23:18 Troponin High Sensitivity+C.LAB.BRZ ordered. EDMS EDMS
--- NOTE | 2024-02-28 02:16 | ER ---
Nurse's Notes [facility] Name: Awa Tracy Age: 68 yrs Sex: Female : 1955 Arrival Date: 02/27/2024 Time: 22:39 Bed 15 Private MD: Diagnosis: Other pneumonia, unspecified organism;Atypical pneumonia , right upper lung pneumonia Presentation: 02/26 22:50 Chief complaint: Patient states: Diagnosed with COVID on 02/09/24 and states she still ss is having body aches, congestion and fever. Coronavirus screen: Client denies travel out of the [place] in the last 14 days. Ebola Screen: Patient denies exposure to infectious person. Patient denies travel to an Ebola-affected area in the 21 days before illness onset. Resp Distress? No respiratory distress is noted at this time. Initial Sepsis Screen: Does the patient meet any 2 criteria? No. Patient's initial sepsis screen is negative. Does the patient have a suspected source of infection? No. Patient's initial sepsis screen is negative. Risk Assessment: Do you want to hurt yourself or someone else? Patient reports no desire to harm self or others. Onset of symptoms was February 09, 2024. 22:50 Method Of Arrival: Ambulatory ss 22:50 Acuity: NICHOL 3 ss Triage Assessment: 22:51 General: Appears ill, Behavior is calm, cooperative. General: Reports fever for feeling ss ill for fatigue for. Neuro: Level of Consciousness is awake, alert, obeys commands, Oriented to person, place, time, situation. Respiratory: Airway is patent Respiratory effort is even, unlabored, Respiratory pattern is regular, symmetrical. Historical: - Allergies: 22:51 Bactrim; ss 22:51 PENICILLINS; ss 22:51 Sulfa (Sulfonamide Antibiotics); ss 22:51 tramadol; ss - PMHx: 22:51 Hyperlipidemia; Hypertension; overactive bladder; shingles; ss - PSHx: 22:51 Appendectomy; back surgery; Cholecystectomy; hysterectomy; Operative procedure on knee; ss shoulder surgery; - Immunization history:: Client reports receiving the 2nd dose of the Covid vaccine. - Infectious Disease History:: Denies. - Social history:: Smoking status: Patient denies any tobacco usage or history of. - Family history:: not pertinent. Screenin:05 [facility] Fall Risk Assessment (Adult) History of falling in the last 3 months, jj7 including since admission No falls in past 3 months (0 pts) Confusion or Disorientation No (0 pts) Intoxicated or Sedated No (0 pts) Impaired Gait No (0 pts) Mobility Assist Device Used No (0 pt) Altered Elimination No (0 pt) Score/Fall Risk Level 0 - 2 = Low Risk Oriented to surroundings, Maintained a safe environment, Educated pt \T\ family on fall prevention, incl call for assistance when getting out of bed, Assessed \T\ reinforced patient's understanding of fall precautions. Abuse screen: Denies threats or abuse. Nutritional screening: No deficits noted. Tuberculosis screening: No symptoms or risk factors identified. Assessment: 23:05 General: Appears in no apparent distress. uncomfortable, Behavior is calm, cooperative, jj7 appropriate for age. Pain: Complains of pain in bodyaches. Cardiovascular: No deficits noted. Respiratory: Reports cough that is Vital Signs: 22:50 BP 153 / 93; Pulse 98; Resp 16; Temp 99.6(O); Pulse Ox 100% on R/A; Weight 68.04 kg; Height 5 ft. 4 in. ; Pain 7/10; 08 00:00 BP 160 / 87; Pulse 91; Resp 18; Pulse Ox 93% ; jj7 01:00 BP 175 / 83; Pulse 85; Resp 16; Temp 98.6; Pulse Ox 95% ; jj7 01:30 BP 153 / 84; Pulse 86; Resp 17; Pulse Ox 92% ; jj7 02:36 BP 146 / 79; Pulse 96; Resp 17; Temp 98.3; Pulse Ox 93% ; jj7 02/26 22:50 Body Mass Index 25.75 (68.04 kg, 162.56 cm) 02/26 22:50 Pain Scale: Adult ED Course: 02/26 22:45 Patient arrived in ED. jj6 22:51 Triage completed. 22:51 Arm band placed on right wrist. 22:52 Valentin Clarke MD is Attending Physician. sp4 22:59 Justin Sanchez RN is Primary Nurse. jj7 23:05 Patient has correct armband on for positive identification. Bed in low position. Call jj7 light in reach. Provided Education on: use of call piedra. 23:54 Influenza Screen (a \T\ B) Sent. jj7 23:54 Strep Sent. jj7 02/27 00:04 Basic Metabolic Panel Sent. jj7 00:04 CBC with Diff Sent. jj7 00:04 LFT's Sent. jj7 00:04 NT PRO-BNP Sent. jj7 00:04 PT-INR Sent. jj7 00:04 Troponin HS Sent. jj7 00:12 CRP Sent. jj7 00:12 SARS RAPID Sent. jj7 00:57 CT Chest For PE Angio In Process Unspecified. EDMS 02:14 Siddhartha Luz DO is Referral Physician. sp4 02:36 No provider procedures requiring assistance completed. IV discontinued, intact, jj7 bleeding controlled, No redness/swelling at site. Pressure dressing applied. Administered Medications: 02/26 23:54 Drug: Dextromethorphan-Guaifenesin PO Liquid 10 mg-100 mg/5 mL 10 ml PO once Route: PO; jj7 02/27 02:30 Follow up: Response: No adverse reaction bm8 00:03 Drug: NS 0.9% IV 1000 ml IV at 1 bolus Per protocol; 1000 mL bolus Route: IV; Rate: 1 jj7 bolus; Site: right antecubital; 02:30 Follow up: Response: No adverse reaction; IV Status: Completed infusion; IV Intake: bm8 1000ml 00:07 Drug: Ondansetron IVP 8 mg IVP once; over 2 minutes Route: IVP; Site: right antecubital;jj7 02:30 Follow up: Response: No adverse reaction bm8 02:30 Drug: LevOfloxacin PO 750 mg PO once Route: PO; bm8 02:31 Follow up: Response: No adverse reaction bm8 02:30 Drug: Tessalon Perle PO 200 mg PO once Route: PO; bm8 02:31 Follow up: Response: No adverse reaction bm8 02:30 Drug: Dextromethorphan-Guaifenesin PO Liquid 10 mg-100 mg/5 mL 10 ml PO once Route: PO; bm8 02:31 Follow up: Response: No adverse reaction bm8 Medication: 02/26 23:05 VIS not applicable for this client. jj7 Intake: 02/27 02:30 IV: 1000ml; Total: 1000ml. bm8 Outcome: 02:16 Discharge ordered by MD. wray 02:36 Discharged to home ambulatory, with significant other, jj7 02:36 Condition: improved 02:36 Discharge instructions given to patient, Instructed on discharge instructions, medication usage, Demonstrated understanding of instructions, medications, Prescriptions given X 3, 02:36 Patient left the ED. jj7 Signatures: Dispatcher [employer] EDMS Shayy Bajwa RN RN Adeola Ray jj6 Justin Sanchez RN RN jj7 Valentin Clarke MD MD sp4 Fred Herrera RN RN bm8 Corrections: (The following items were deleted from the chart) 02:47 02:46 Patient left the ED. jj7 jj7
[2024-02-28] MEDS ORDERED: levoFLOXacin 750 MG TAB ONE (02:26)
[2024-02-28] MEDS ORDERED: GUAIFENESIN/DM 5 ML UCUP ONE (02:27)
[2024-02-28] MEDS ORDERED: BENZONATATE 100 MG CAP PO ONE (02:27)
[2024-02-28 03:00] VITALS: BP 146/79; TEMP 98.3; O2SAT 93
--- NOTE | 2024-02-28 10:39 | RAD REPORT ---
EXAM DESCRIPTION: CT - Chest For Pe Angio - 02/28/2024 6:04 am CLINICAL HISTORY: Suspected pulmonary embolus. COMPARISON: None. TECHNIQUE: Intravenous low osmolar contrast. Coronal and sagittal reformations including 3D maximu m intensity projections. This exam was performed according to our departmental dose-optimization program, which includes autom ated exposure control, adjustment of the mA and/or kV according to patient size and/or use of iterati ve reconstruction technique. FINDINGS: PULMONARY ARTERIAL SYSTEM: Contrast bolus is adequate. No CT evidence for pulmonary embo lism. CARDIAC: Normal. AORTA/VASCULAR: No aneurysm. LYMPH NODES/MEDIASTINUM: No thoracic adenopathy. CENTRAL AIRWAYS: Central airways are patent. Mild diffuse bronchial wall thickening. LUNGS: Multifocal tree-in-bud opacities in the right upper lobe. Bilateral dependent reticular opacit ies, likely atelectasis. PLEURA: Normal. ESOPHAGUS: Collapsed and not well assessed by CT, without obvious abnormality. THYROID: Negative, where seen. CHEST WALL: Normal. UPPER ABDOMEN: Normal. THORACIC SKELETAL: No acute finding. ADDITIONAL CHEST FINDINGS: None. IMPRESSION: 1. No evidence of acute pulmonary embolus. 2. Multifocal tree-in-bud opacities in the right upper lobe, concerning for atypical infectious/inf lammatory process. 3. Mild diffuse bronchial wall thickening, suggesting bronchitis. Electronically signed by: Froy Kwon MD 02/28/2024 01:19 AM CDT RP Z9 Due to temporary technical issues with the PACS/Fluency reporting system, reports are being signed by the in house radiologist without review as a courtesy to ensure prompt reporting. The interpreting r adiologist is fully responsible for the content of the report.
--- NOTE | 2024-02-28 14:37 | EKG ---
Test Date: 2024-02-27 Test Time: 23:52:48 Manager Merchandising: AJ MEASUREMENT RESULTS: Intervals: Rate: 93 AR: 202 QRSD: 84 QT: 336 QTc: 417 [place]: P: 36 AR: 202 QRS: -13 T: 43 INTERPRETIVE STATEMENTS: Normal sinus rhythm Septal infarct, age undetermined Abnormal ECG Compared to ECG 02/15/2024 23:30:59 Myocardial infarct finding now present First degree AV block no longer present T-wave abnormality no longer present Electronically Signed On 02-28-24 14:36:53 CDT by Juan Anderson
== END 2024-02-28 02:46 | disposition home or self-care (01) ==
LOC: ER 22:39
DX: J18.8 Other pneumonia, unspecified organism (principal); Z11.52 Encounter for screening for COVID-19; I10 Essential (primary) hypertension
CPT/HCPCS: 96361; 93005; 87070; 85025; 80048; 36415; 85610; 80076; 87081; 84484; 83880; 86140; 87804 ×2; 71275; 96374; 99284; 87811; Q9967; J2405; J7030

== ENCOUNTER 2024-03-08 11:02 | Emergency (ER) | payer OTHER ==
[2024-03-08] MEDS ORDERED: CYCLOBENZAPRINE 10 MG TAB ONE (11:55)
[2024-03-08] MEDS ORDERED: KETOROLAC 30 MG/ML INJ ONE (11:55)
[2024-03-08] MEDS ORDERED: ONDANSETRON 4 MG/2 ML VIAL ONE (11:55)
[2024-03-08] MEDS ORDERED: MORPHINE 4 MG/ML SYR ONE (11:56)
[2024-03-08 12:01] LABS: Absolute Basophils 0.1 K/uL (0-0.5); Absolute Lymphocytes (CBC) 1.2 K/uL (0.7-4.9); Absolute Monocytes 0.6 K/uL (0.1-1.3); Absolute Neutrophil 5.9 K/uL (1.8-8.0); Basophils % 0.8 % (0-1.3); Eosinophils % 0.6 % (0-4.4); Hematocrit 41.6 % (36.0-45.0); Hemoglobin 13.7 g/dL (12.0-15.0); Lymphocytes % 15.6 % (15.3-44.8); MCH 28.5 pg (27.0-35.0); MCHC 32.9 g/dL (32.0-36.0); MCV 86.6 fL (80-100); MPV 8.3 fL (7.6-11.3); Monocytes % 7.6 % (3.3-12.3); Neutrophils % 75.4 % (41.7-73.7); Platelets 177 thou/uL (152-406); Red Cell Distribution Width 14.1 % (12.1-15.2)
[2024-03-08 12:23] LABS: ALT/SGPT 17 U/L (13-56); Albumin 3.5 g/dL (3.4-5.0); Albumin/Globulin Ratio 0.8 (1.1-1.8); Alkaline Phosphatase 81 U/L (45-117); BUN Blood Urea Nitrogen 13 mg/dL (7-18); Bicarbonate 24 mEq/L (21-32); Bilirubin Direct 0.2 mg/dL (0-0.2); Bilirubin Indirect, Calculated 0.6 mg/dL (0.2-0.8); Bilirubin Total 0.8 mg/dL (0.2-1.0); Globulin 4.3 g/dL (2.3-3.5); Glomerular Filtration Rate 93 ml/min (=/>90); Glucose Level 101 mg/dL (74-106); Magnesium 2.3 mg/dL (1.6-2.4); Protein, Total 7.8 g/dL (6.4-8.2); Sodium Level 140 mEq/L (136-145)
[2024-03-08 12:24] LABS: AST/SGOT < 10 U/L (15-37); Troponin High Sensitivity < 3.0 pg/mL (<58.9)
--- NOTE | 2024-03-08 12:25 | RAD REPORT ---
EXAM DESCRIPTION: CT - CTHCSPWOC - 03/08/2024 12:15 pm CLINICAL HISTORY: Trauma, head and neck injury. headache, neck pain COMPARISON: Soft Tissue Neck W/Contr dated 09/17/2022 TECHNIQUE: Axial 5 mm thick images of the head were obtained. Axial 2 mm thick images of the cervical spine were obtained with sagittal and coronal reconstruction images generated and reviewed. All CT scans are performed using dose optimization technique as appropriate and may include automated exposure control or mA/KV adjustment according to patient size. FINDINGS: CT HEAD WITHOUT CONTRAST: No acute hemorrhage, hydrocephalus or extra-axial collection is identified.No areas of brain edema or midline shift. Mild polypoid mucosal thickening of the maxillary antra.The calvarium is intact. CT CERVICAL SPINE WITHOUT CONTRAST: No fracture or subluxation.Mild lower cervical degenerative changes.No prevertebral soft tissues swel ling is identified. IMPRESSION: No acute intracranial or cervical spine findings.
--- NOTE | 2024-03-08 12:27 | RAD REPORT ---
EXAM DESCRIPTION: CT - Thorax Wo Con CLINICAL HISTORY: Chest pain upper back pain COMPARISON: Chest For Pe Angio dated 02/28/2024 FINDINGS: The lungs are clear. No pleural thickening or pleural effusion. No pneumothorax. No axillary, mediastinal or hilar adenopathy. No concerning bony finding. No gross upper abdominal finding. All CT scans are performed using dose optimization technique as appropriate and may include automated exposure control or mA/KV adjustment according to patient size. IMPRESSION: No acute abnormality detected.
--- NOTE | 2024-03-08 13:04 | ER ---
Nurse's Notes [facility] Name: Awa Tracy Age: 68 yrs Sex: Female : 1955 Arrival Date: 03/08/2024 Time: 11:02 Bed 18 Private MD: Diagnosis: Neck pain;Upper back pain Presentation: 03/08 11:24 Chief complaint: Patient states: upper left back and neck started to hurt with tm6 headache. 8/10 pain. Nausea, no vomiting. Coronavirus screen: Vaccine status: Patient reports receiving the 2nd dose of the covid vaccine. Ebola Screen: Patient negative for fever greater than or equal to 101.5 degrees Fahrenheit, and additional compatible Ebola Virus Disease symptoms Patient denies exposure to infectious person. Patient denies travel to an Ebola-affected area in the 21 days before illness onset. No symptoms or risks identified at this time. Initial Sepsis Screen: Does the patient meet any 2 criteria? No. Patient's initial sepsis screen is negative. Does the patient have a suspected source of infection? No. Patient's initial sepsis screen is negative. Risk Assessment: Do you want to hurt yourself or someone else? Patient reports no desire to harm self or others. Onset of symptoms was March 05, 2024. 11:24 Method Of Arrival: Ambulatory tm6 11:24 Acuity: NICHOL 3 tm6 Triage Assessment: 11:25 General: Appears in no apparent distress. uncomfortable, Behavior is calm, cooperative. tm6 Pain: Complains of pain in scalp, left trapezius and neck Pain currently is 8 out of 10 on a pain scale. Pain began 2-3 days ago. EENT: No signs and/or symptoms were reported regarding the EENT system. Neuro: Level of Consciousness is awake, alert, obeys commands, Oriented to person, place, time, situation, Reports headache. Cardiovascular: Patient's skin is warm and dry. Respiratory: Airway is patent Respiratory effort is even, unlabored, Respiratory pattern is regular, symmetrical. GI: Abdomen is flat, non-distended, Reports nausea. : No signs and/or symptoms were reported regarding the genitourinary system. Derm: No signs and/or symptoms reported regarding the dermatologic system. Musculoskeletal: Circulation, motion, and sensation intact. Reports pain in scalp, left trapezius and neck since . Pain is 8 out of 10 on a pain scale. Historical: - Allergies: 11:25 tramadol; tm6 11:25 Sulfa (Sulfonamide Antibiotics); tm6 11:25 PENICILLINS; tm6 11:25 Bactrim; tm6 - PMHx: 11:25 Hyperlipidemia; Hypertension; overactive bladder; shingles; tm6 - PSHx: 11:25 Appendectomy; Cholecystectomy; hysterectomy; back surgery; Operative procedure on knee; tm6 shoulder surgery; - Immunization history:: Client reports receiving the 2nd dose of the Covid vaccine. - Infectious Disease History:: Denies. - Social history:: Smoking status: Patient denies any tobacco usage or history of. Patient/guardian denies using alcohol. - Family history:: not pertinent. Screenin:58 Abuse screen: Denies threats or abuse. Nutritional screening: No deficits noted. ap3 Tuberculosis screening: No symptoms or risk factors identified. 13:34 [facility] ED Fall Risk Assessment (Adult) History of falling in the last 3 months, ap3 including since admission No falls in past 3 months (0 pts) Confusion or Disorientation No (0 pts) Intoxicated or Sedated No (0 pts) Impaired Gait No (0 pts) Mobility Assist Device Used No (0 pt) Altered Elimination No (0 pt) Score/Fall Risk Level 0 - 2 = Low Risk Oriented to surroundings, Maintained a safe environment, Educated pt \T\ family on fall prevention, incl call for assistance when getting out of bed, Assessed \T\ reinforced patient's understanding of fall precautions, Hourly rounding (assess needs \T\ fall precautionary measures) done, Used ambulatory aids as needed (educated on \T\ assisted with), Used gait belt as appropriate. Vital Signs: 11:23 BP 138 / 83; Pulse 74; Resp 21; Temp 98.5(O); Pulse Ox 98% on R/A; Weight 68.04 kg; tm6 Height 5 ft. 4 in. ; Pain 8/10; 12:34 BP 148 / 80; Pulse 74; Resp 17; Pulse Ox 94% ; ap3 13:22 BP 162 / 84; Pulse 64; Resp 17; Temp 97.8; Pulse Ox 100% ; ap3 11:23 Body Mass Index 25.75 (68.04 kg, 162.56 cm) tm6 11:23 Pain Scale: Adult tm6 ED Course: 11:06 Patient arrived in ED. mr 11:08 Jacob Greer MD is Attending Physician. rt 11:25 Triage completed. tm6 11:25 Arm band placed on left wrist. tm6 11:55 Initial lab(s) drawn, by me, sent to lab. Inserted saline lock: 22 gauge in right cc6 antecubital area, using aseptic technique. Blood collected. Flushed with 10 mL NS. 11:58 Mesha Negron, EJ is Primary Nurse. ap3 11:58 Patient has correct armband on for positive identification. Bed in low position. Call ap3 light in reach. Side rails up X 1. Provided Education on: call light education. Client placed on continuous cardiac and pulse oximetry monitoring. NIBP monitoring applied. disposal operator on. Pulse ox on. NIBP on. 12:00 No provider procedures requiring assistance completed. ap3 12:16 CT Head C Spine In Process Unspecified. EDMS 12:16 CT Chest Wo Con In Process Unspecified. EDMS 13:35 IV discontinued, intact, bleeding controlled, No redness/swelling at site. Pressure ap3 dressing applied. Administered Medications: 12:33 Drug: morphine IVP or IV 4 mg IVP once over 4 mins Route: IVP; Infused Over: 4 mins; ap3 Site: right antecubital; 13:34 Follow up: Response: No adverse reaction; Pain is decreased; RASS: Alert and Calm (0) ap3 12:33 Drug: Ondansetron IVP 4 mg IVP once; over 2 minutes Route: IVP; Site: right antecubital;ap3 13:34 Follow up: Response: No adverse reaction ap3 12:33 Drug: Cyclobenzaprine PO 10 mg PO once Route: PO; ap3 13:34 Follow up: Response: No adverse reaction; Pain is decreased ap3 12:34 Drug: Ketorolac IVP 15 mg IVP once Route: IVP; Site: right antecubital; ap3 13:34 Follow up: Response: No adverse reaction; Pain is decreased ap3 Medication: 12:00 VIS not applicable for this client. ap3 Outcome: 13:03 Discharge ordered by MD. rt 13:35 Discharged to home ambulatory, with family, ap3 13:35 Condition: good 13:35 Discharge instructions given to patient, Instructed on discharge instructions, follow up and referral plans. medication usage, Demonstrated understanding of instructions, follow-up care, medications, Prescriptions given X 3, 13:42 Patient left the ED. ap3 Signatures: Dispatcher [employer] EDMS Toma Luo, Reg Reg mr Mesha Negron, RN RN ap3 Jacob Greer MD MD rt Masterson, Tawney, RN RN tm6 Joelle Soares 6
--- NOTE | 2024-03-08 13:04 | EDPHYS ---
Physician Documentation [facility] Name: Awa Tracy Age: 68 yrs Sex: Female : 1955 Arrival Date: 03/08/2024 Time: 11:02 Bed 18 Private MD: ED Physician Jacob Greer HPI: 03/08 13:48 This 68 yrs old Female presents to ER via Ambulatory with complaints of Back rt Pain, Nausea. 13:48 Patient had a recent diagnosis of a pneumonia. Patient reports of pain to the left rt upper back, left neck, as well as a headache for the past 3 days. Denies cough, difficulty breathing. Denies other acute complaints at this time, symptoms are moderate in severity, no other aggravating or alleviating factors.. Historical: - Allergies: 11:25 tramadol; tm6 11:25 Sulfa (Sulfonamide Antibiotics); tm6 11:25 PENICILLINS; tm6 11:25 Bactrim; tm6 - PMHx: 11:25 Hyperlipidemia; Hypertension; overactive bladder; shingles; tm6 - PSHx: 11:25 Appendectomy; Cholecystectomy; hysterectomy; back surgery; Operative procedure on knee; tm6 shoulder surgery; - Immunization history:: Client reports receiving the 2nd dose of the Covid vaccine. - Infectious Disease History:: Denies. - Social history:: Smoking status: Patient denies any tobacco usage or history of. Patient/guardian denies using alcohol. - Family history:: not pertinent. ROS: 13:48 Constitutional: Negative for fever, chills, and weight loss, Cardiovascular: Negative rt for chest pain, palpitations, and edema, Respiratory: Negative for shortness of breath, cough, wheezing, and pleuritic chest pain, Abdomen/GI: Negative for abdominal pain, nausea, vomiting, diarrhea, and constipation, Skin: Negative for injury, rash, and discoloration, 13:48 Neck: Positive for pain with movement, Negative for injury or acute deformity, 13:48 Back: Positive for pain at rest, Negative for injury or acute deformity, 13:48 Neuro: Positive for headache, Exam: 13:48 Constitutional: This is a well developed, well nourished patient who is awake, alert, rt and in no acute distress. Head/Face: Normocephalic, atraumatic. Chest/axilla: Normal chest wall appearance and motion. Nontender with no deformity. No lesions are appreciated. Cardiovascular: Regular rate and rhythm with a normal S1 and S2. No gallops, murmurs, or rubs. Normal PMI, no JVD. No pulse deficits. Respiratory: Lungs have equal breath sounds bilaterally, clear to auscultation and percussion. No rales, rhonchi or wheezes noted. No increased work of breathing, no retractions or nasal flaring. Abdomen/GI: Soft, non-tender, with normal bowel sounds. No distension or tympany. No guarding or rebound. No evidence of tenderness throughout. Skin: Warm, dry with normal turgor. Normal color with no rashes, no lesions, and no evidence of cellulitis. MS/ Extremity: Pulses equal, no cyanosis. Neurovascular intact. Full, normal range of motion. Neuro: Awake and alert, GCS 15, oriented to person, place, time, and situation. Cranial nerves II-XII grossly intact. Motor strength 5/5 in all extremities. Sensory grossly intact. Cerebellar exam normal. Normal gait. 13:48 Neck: Tenderness to the left superior trapezius muscle, no midline tenderness, no step-offs, 13:48 ECG was reviewed by the Attending Physician. 13:48 Back: Tenderness to the left upper back, no midline tenderness, Vital Signs: 11:23 BP 138 / 83; Pulse 74; Resp 21; Temp 98.5(O); Pulse Ox 98% on R/A; Weight 68.04 kg; tm6 Height 5 ft. 4 in. ; Pain 8/10; 12:34 BP 148 / 80; Pulse 74; Resp 17; Pulse Ox 94% ; ap3 13:22 BP 162 / 84; Pulse 64; Resp 17; Temp 97.8; Pulse Ox 100% ; ap3 11:23 Body Mass Index 25.75 (68.04 kg, 162.56 cm) tm6 11:23 Pain Scale: Adult tm6 MDM: 11:30 Patient medically screened. rt 13:48 Differential diagnosis: Musculoskeletal pain, intracranial hemorrhage, pulmonary rt abscess. Data reviewed: vital signs, nurses notes, lab test result(s), EKG, radiologic studies. Consideration of Admission/Observation Escalation of care including admission/observation considered. Workup is benign, low suspicion for PE, scans are unremarkable. Symptoms are improving with treatment in the ED, no indications for admission at this time.. I considered the following discharge prescriptions or medication management in the emergency department Medications were administered in the Emergency Department. See MAR. Independent interpretation of the following test(s) in the Emergency Department CT Scan: My interpretation is No pneumothorax seen on interpretation of CT scan images. Care significantly affected by the following chronic conditions: Hypertension. Counseling: I had a detailed discussion with the patient and/or guardian regarding the historical points, exam findings, and any diagnostic results supporting the discharge/admit diagnosis, lab results, radiology results, the need for outpatient follow up, to return to the emergency department if symptoms worsen or persist or if there are any questions or concerns that arise at home. Response to treatment: the patient's symptoms have markedly improved after treatment. 03/08 11:39 Order name: Basic Metabolic Panel; Complete Time: 12:25 rt 03/08 11:39 Order name: CBC with Diff; Complete Time: 12:25 rt 03/08 11:39 Order name: LFT's; Complete Time: 12:25 rt 03/08 11:39 Order name: Magnesium; Complete Time: 12:25 rt 03/08 11:39 Order name: Troponin HS; Complete Time: 12:25 rt 03/08 11:39 Order name: CT Head C Spine; Complete Time: 12:48 rt 03/08 11:39 Order name: CT Chest Wo Con; Complete Time: 12:48 rt 03/08 11:39 Order name: EKG; Complete Time: 11:40 rt 03/08 11:39 Order name: Cardiac monitoring; Complete Time: 12:34 rt 03/08 11:39 Order name: EKG - Nurse/Tech; Complete Time: 13:09 rt 03/08 11:39 Order name: IV Saline Lock; Complete Time: 12:03 rt 03/08 11:39 Order name: Labs collected and sent; Complete Time: 12:03 rt 03/08 11:39 Order name: O2 Per Protocol; Complete Time: 11:52 rt 03/08 11:39 Order name: O2 Sat Monitoring; Complete Time: 11:52 rt EC:48 Rate is 60 beats/min. Rhythm is regular, Normal Sinus Rhythm with No ectopy. QRS [place] rt is Normal. OR interval is normal. QRS interval is normal. QT interval is normal. No Q waves. No ST changes noted. Interpreted by me. Administered Medications: 12:33 Drug: morphine IVP or IV 4 mg IVP once over 4 mins Route: IVP; Infused Over: 4 mins; ap3 Site: right antecubital; 13:34 Follow up: Response: No adverse reaction; Pain is decreased; RASS: Alert and Calm (0) ap3 12:33 Drug: Ondansetron IVP 4 mg IVP once; over 2 minutes Route: IVP; Site: right antecubital;ap3 13:34 Follow up: Response: No adverse reaction ap3 12:33 Drug: Cyclobenzaprine PO 10 mg PO once Route: PO; ap3 13:34 Follow up: Response: No adverse reaction; Pain is decreased ap3 12:34 Drug: Ketorolac IVP 15 mg IVP once Route: IVP; Site: right antecubital; ap3 13:34 Follow up: Response: No adverse reaction; Pain is decreased ap3 Disposition Summary: 03/08/24 13:03 Discharge Ordered Notes: Location: Home rt Problem: new rt Symptoms: have improved rt Condition: Stable rt Diagnosis - Neck pain rt - Upper back pain rt Followup: rt - With: Private Physician - When: 2 - 3 days - Reason: Discharge Instructions: - Discharge Summary Sheet rt - Acute Back Pain, Adult rt - Neck Exercises rt Forms: - Medication Reconciliation Form rt - Antibiotic Education rt - Prescription Opioid Use rt - Patient Portal Instructions rt - Leadership Thank You Letter rt Prescriptions: - acetaminophen-codeine 300-15 mg Oral tablet - take 1 tablet ORAL route every 6 hours as needed for pain; 15 tablet; Refills: rt 0, Product Selection Permitted - ondansetron 4 mg Oral Tablet,disintegrating - take 1 tablet ORAL route every 6 hours as needed for nausea; 18 tablet; rt Refills: 0, Product Selection Permitted - Cyclobenzaprine 5 mg Oral Tablet - take 1 tablet ORAL route 3 times per day As needed; 15 tablet; Refills: 0, rt Product Selection Permitted Signatures: Dispatcher [employer] EDMS Mesha Negron RN RN ap3 Jacob Greer MD MD rt Belkis Montesinos RN RN tm6 Corrections: (The following items were deleted from the chart) 11:39 11:39 Thorax Wo Con+CT.RAD.BRZ ordered. EDMS EDMS 11:40 11:40 BASIC METABOLIC PANEL+C.LAB.BRZ ordered. EDMS EDMS 11:40 11:40 CBC+H.LAB.BRZ ordered. EDMS EDMS :40 11:40 HEPATIC FUNCTION+C.LAB.BRZ ordered. EDMS EDMS 11:40 11:40 MAGNESIUM+C.LAB.BRZ ordered. EDMS EDMS 11:40 11:40 Troponin High Sensitivity+C.LAB.BRZ ordered. EDMS EDMS 13:48 13:48 Patient had a recent diagnosis of a pneumonia. Patient reports of pain to the rt left upper back, left neck, as well as a headache. rt
[2024-03-08 13:48] VITALS: BP 162/84; TEMP 97.8; O2SAT 100
--- NOTE | 2024-03-10 16:59 | EKG ---
Test Date: 2024-03-08 Test Time: 13:06:38 [employer]crete Plant Laborer: JUSTINA MEASUREMENT RESULTS: Intervals: Rate: 60 NC: 184 QRSD: 88 QT: 398 QTc: 398 [place]: P: 16 NC: 184 QRS: -7 T: 9 INTERPRETIVE STATEMENTS: Normal sinus rhythm Nonspecific T wave abnormality Abnormal ECG Compared to ECG 02/27/2024 23:52:48 T-wave abnormality now present Myocardial infarct finding no longer present Electronically Signed On 03-10-24 16:53:56 CDT by Kian Salmon
== END 2024-03-08 13:42 | disposition home or self-care (01) ==
LOC: ER 11:02
DX: M54.9 Dorsalgia, unspecified (principal); M54.2 Cervicalgia; E78.5 Hyperlipidemia, unspecified; I10 Essential (primary) hypertension; Z90.710 Acquired absence of both cervix and uterus; Z90.49 Acquired absence of other specified parts of digestive tract
CPT/HCPCS: 93005; 85025; 80048; 36415; 83735; 80076; 84484; 70450; 71250; 72125; 96375; 96374; 99285; J2405

== ENCOUNTER 2024-08-08 08:26 | Emergency (ER) | payer OTHER ==
[2024-08-08] MEDS ORDERED: ACETAMINOPHEN 500 MG TAB ONE (08:56)
[2024-08-08] MEDS ORDERED: ONDANSETRON 4 MG/2 ML VIAL ONE (08:56)
[2024-08-08] MEDS ORDERED: NA CHLORIDE 0.9% 500 ML ONE (08:57)
[2024-08-08] MEDS ORDERED: KETOROLAC 30 MG/ML INJ ONE (08:57)
[2024-08-08] MEDS ORDERED: LIDOCAINE 4% PATCH ONE (08:57)
[2024-08-08 09:12] LABS: Absolute Eosinophils 0.1 K/uL (0-0.5); Absolute Lymphocytes (CBC) 1.2 K/uL (0.7-4.9); Absolute Monocytes 0.3 K/uL (0.1-1.3); Absolute Neutrophil 3.1 K/uL (1.8-8.0); Basophils % 0.6 % (0-1.3); Eosinophils % 2.5 % (0-4.4); Hematocrit 42.3 % (36.0-45.0); Hemoglobin 14.1 g/dL (12.0-15.0); Lymphocytes % 25.4 % (15.3-44.8); MCH 28.4 pg (27.0-35.0); MCHC 33.3 g/dL (32.0-36.0); MCV 85.5 fL (80-100); Monocytes % 5.8 % (3.3-12.3); Neutrophils % 65.7 % (41.7-73.7); Nucleated Red Blood Cells % 0.1 % (0-0); Platelets 213 thou/uL (152-406); RBC Red Blood Cell Count 4.95 M/uL (3.86-4.86); Red Cell Distribution Width 14.3 % (12.1-15.2)
[2024-08-08 09:17] LABS: Anion Gap 7.6 mEq/L (5.0-15.0)
[2024-08-08 09:20] LABS: Potassium 3.6 mEq/L (3.5-5.1)
[2024-08-08 09:29] LABS: Specific Gravity 1.019 (1.005-1.030); Sqamous Epithelial <5 /HPF (None Seen); Urine Bacteria None Seen /HPF (<20); Urine Bilirubin NEGATIVE (Negative); Urine Blood Trace (Negative); Urine Clarity Clear (Clear); Urine Color Light-Yellow (Yellow); Urine Culture Reflex Order NOT NEEDED; Urine Glucose NEGATIVE (Negative); Urine Ketones NEGATIVE (Negative); Urine Micro Reflex YN NO BILL MICROSCOPIC; Urine Mucus Slight /HPF (None Seen); Urine Nitrite NEGATIVE (Negative); Urine Protein NEGATIVE (Negative); Urine RBC <5 /HPF (None Seen); Urine Urobilinogen Normal (Normal); Urine WBC <5 /HPF (<5); Urine pH 5.5 (5.0-7.0)
--- NOTE | 2024-08-08 09:45 | RAD REPORT ---
EXAMINATION: CT ABDOMEN AND PELVIS WITHOUT CONTRAST CLINICAL INDICATION: Female, 69 years old.L flank pain TECHNIQUE: CT abdomen and pelvis was performed, without IV contrast, as per department protocol. Axia l, sagittal and coronal reconstructions were obtained. One or more of the following dose reduction techniques were used: Automated exposure control, adjustment of the mA and/or kV according to the pat ient size, and/or iterative reconstruction. Unless otherwise specified, incidental findings do not require dedicated imaging follow-up. [id number]. IV CONTRAST: Not administered. COMPARISON: 02/16/2024 FINDINGS: The lack of intravenous contrast limits the sensitivity of this exam for evaluation of solid visceral organs, vascular structures, and retroperitoneum. LOWER CHEST: No acute process identified.No significant pericardial effusion. UPPER GI: No significant abnormality. LIVER: Hepatic steatosis, but otherwise unremarkable. GALLBLADDER/BILE DUCTS: Cholecystectomy. No significant biliary ductal dilatation.? PANCREAS: No mass, ductal dilation, or mervin-pancreatic fluid. SPLEEN: Unremarkable. ADRENALS: No adrenal masses. KIDNEYS AND URETERS: No hydronephrosis.Within the limitations of a noncontrast CT, no suspicious vahe l lesions. ABDOMINAL AORTA AND OTHER VESSELS: Mild atherosclerotic changes. PERITONEUM: No abnormal free fluid. No free air. LYMPH NODES: No pathologic lymphadenopathy. ABDOMINAL WALL: Small fat containing umbilical hernia. SMALL BOWEL/COLON: Small bowel has normal course and caliber. No colonic wall thickening or pericolon ic inflammatory changes.No appendicitis. Moderate diverticulosis without diverticulitis. URINARY BLADDER: Underdistended but grossly unremarkable. REPRODUCTIVE ORGANS: No pathologic process. MUSCULOSKELETAL: No acute or suspicious osseous abnormality. ADDITIONAL FINDINGS: None. IMPRESSION: No acute or significant abnormalities in the abdomen or pelvis, with evaluation limited by lack of IV contrast. No urinary tract calculi.
--- NOTE | 2024-08-08 09:54 | ER ---
Nurse's Notes [facility] Name: Awa Tracy Age: 69 yrs Sex: Female : 1955 Arrival Date: 08/08/2024 Time: 08:26 Bed 19 Private MD: Diagnosis: Low back pain Presentation: 08/08 08:38 Chief complaint: Patient states: L lower back pain for 1 week with urinary frequency, ll1 chills, and nausea. No fever. Coronavirus screen: Client denies travel out of the [place] in the last 14 days. At this time, the client does not indicate any symptoms associated with coronavirus-19. Ebola Screen: Patient denies travel to an Ebola-affected area in the 21 days before illness onset. Initial Sepsis Screen: Does the patient meet any 2 criteria? No. Patient's initial sepsis screen is negative. Does the patient have a suspected source of infection? No. Patient's initial sepsis screen is negative. Risk Assessment: Do you want to hurt yourself or someone else? Patient reports no desire to harm self or others. Onset of symptoms was August 01, 2024. 08:38 Method Of Arrival: Ambulatory ll1 08:38 Acuity: NICHOL 3 ll1 Triage Assessment: 08:40 General: Appears uncomfortable, Behavior is calm, cooperative, appropriate for age. ll1 Pain: Complains of pain in back Pain currently is 10 out of 10 on a pain scale. Quality of pain is described as aching. GI: Reports nausea. : Reports urinary frequency, smell to urine. Musculoskeletal: Reports pain in L lower back. Historical: - Allergies: 08:31 Bactrim; ll1 08:31 PENICILLINS; ll1 08:31 Sulfa (Sulfonamide Antibiotics); ll1 08:31 tramadol; ll1 - PMHx: 08:31 Hyperlipidemia; Hypertension; overactive bladder; shingles; ll1 - PSHx: 08:31 back surgery; Appendectomy; Cholecystectomy; hysterectomy; Operative procedure on knee; ll1 shoulder surgery; - Immunization history:: Adult Immunizations up to date. - Infectious Disease History:: Denies. - Social history:: Smoking status: Patient denies any tobacco usage or history of. Screenin:04 [facility] ED Fall Risk Assessment (Adult) History of falling in the last 3 months, ll1 including since admission No falls in past 3 months (0 pts) Confusion or Disorientation No (0 pts) Intoxicated or Sedated No (0 pts) Impaired Gait No (0 pts) Mobility Assist Device Used No (0 pt) Altered Elimination Yes (1 pt) Score/Fall Risk Level 0 - 2 = Low Risk Maintained a safe environment, Hourly rounding (assess needs \T\ fall precautionary measures) done. Abuse screen: Denies threats or abuse. Nutritional screening: No deficits noted. Tuberculosis screening: No symptoms or risk factors identified. Assessment: 09:13 Reassessment: No changes from previously documented assessment. Patient and/or family ll1 updated on plan of care and expected duration. Pain level reassessed. Patient is alert, oriented x 3, equal unlabored respirations, skin warm/dry/pink. 09:36 Reassessment: Patient and/or family updated on plan of care and expected duration. Pain ll1 level reassessed. back from CT. 10:15 Reassessment: No changes from previously documented assessment. Patient and/or family ll1 updated on plan of care and expected duration. Pain level reassessed. Patient is alert, oriented x 3, equal unlabored respirations, skin warm/dry/pink. 10:15 Neuro: Level of Consciousness is awake, alert, obeys commands. ll1 Vital Signs: 08:38 BP 158 / 75; Pulse 72; Resp 16; Temp 97.4; Pulse Ox 98% ; Weight 72.57 kg; Height 5 ft. ll1 4 in. ; Pain 10/10; 09:03 BP 156 / 75; Pulse 64; Resp 17; Pulse Ox 98% ; ll1 10:14 BP 159 / 74; Pulse 65; Resp 17; Pulse Ox 98% ; Pain 7/10; ll1 08:38 Body Mass Index 27.46 (72.57 kg, 162.56 cm) ll1 08:38 Pain Scale: Adult ll1 10:14 Pain Scale: Adult ll1 ED Course: 08:28 Patient arrived in ED. mr 08:31 Kade Shields MD is Attending Physician. ec2 08:31 Arm band placed on Patient placed in an exam room, on a stretcher. ss 08:39 Triage completed. ll1 09:04 Patient has correct armband on for positive identification. Provided Education on: ER ll1 procedures and process. 09:04 Initial lab(s) drawn, by me, sent to lab. Inserted saline lock: 22 gauge in right ll1 antecubital area, using aseptic technique. Blood collected. Flushed with 10 mL NS. 09:13 UAM Sent. ll1 09:13 Urine collected: clean catch specimen, clear, Amount Voided: 100mL. ll1 09:29 CT Abd/Pelvis - Without Contrast In Process Unspecified. EDMS 09:36 Patrick Torres, RN is Primary Nurse. ll1 10:15 No provider procedures requiring assistance completed. IV discontinued, intact, ll1 bleeding controlled, No redness/swelling at site. Pressure dressing applied. Administered Medications: 09:05 Drug: Ketorolac IVP 15 mg IVP once {Note: pain 04/09 RASS 0.} Route: IVP; Site: right ll1 antecubital; 10:00 Follow up: Response: No adverse reaction; Pain is decreased; RASS: Alert and Calm (0) ll1 09:05 Drug: Ondansetron IVP 4 mg IVP once; over 2 minutes Route: IVP; Site: right antecubital;ll1 10:00 Follow up: Response: No adverse reaction; Nausea is decreased ll1 09:05 Drug: NS 0.9% IV 500 ml 500 ml IV at 1 bolus once; to be given as a bolus over 30 ll1 minutes Volume: 500 ml; Route: IV; Rate: 1 bolus; Site: right antecubital; 10:00 Follow up: Response: No adverse reaction; IV Status: Completed infusion; IV Intake: ll1 500ml 09:05 Drug: Lidoderm Topical Patch 5 % (700 mg/patch) 1 patches Topical once; leave on for 12 ll1 hours; cover most painful area; may cut into smaller pieces Route: Topical; Site: affected area; 10:01 Follow up: Response: No adverse reaction; Pain is decreased ll1 09:05 Drug: Acetaminophen PO 1000 mg PO once Route: PO; ll1 10:01 Follow up: Response: No adverse reaction; Pain is decreased ll1 10:00 Drug: Methocarbamol PO 500 mg PO once Route: PO; ll1 10:14 Follow up: Response: No adverse reaction; Pain is decreased; RASS: Alert and Calm (0) ll1 Medication: 09:04 VIS not applicable for this client. ll1 Intake: 10:00 IV: 500ml; Total: 500ml. ll1 Outcome: 09:53 Discharge ordered by . ec2 10:15 Discharged to home via wheelchair, ll1 10:15 Condition: stable 10:15 Discharge instructions given to patient, Instructed on discharge instructions, follow up and referral plans. no drinking with medication, no driving heavy equipment, medication usage, Demonstrated understanding of instructions, follow-up care, medications, Prescriptions given X 1, 10:15 Patient left the ED. 1 Signatures: Dispatcher [employer] EDToma Jernigan, Reg Reg mr Shayy Bajwa, RN RN Patrick Lopez RN RN ll1 Kade Shields MD MD ec2
--- NOTE | 2024-08-08 09:54 | EDPHYS ---
Physician Documentation [facility] Name: Awa Tracy Age: 69 yrs Sex: Female : 1955 Arrival Date: 08/08/2024 Time: 08:26 Bed 19 Private MD: ED Physician Kade Shields HPI: 08/08 08:49 This 69 yrs old Female presents to ER via Ambulatory with complaints of Back ec2 Pain. 08:49 Patient arrives today for evaluation of left-sided flank pain onset of 1 week ago. ec2 Worse with movements, also complains of urinary frequency. No fevers or vomiting. Does endorse some nausea.. Historical: - Allergies: 08:31 Bactrim; ll1 08:31 PENICILLINS; ll1 08:31 Sulfa (Sulfonamide Antibiotics); ll1 08:31 tramadol; ll1 - PMHx: 08:31 Hyperlipidemia; Hypertension; overactive bladder; shingles; ll1 - PSHx: 08:31 back surgery; Appendectomy; Cholecystectomy; hysterectomy; Operative procedure on knee; ll1 shoulder surgery; - Immunization history:: Adult Immunizations up to date. - Infectious Disease History:: Denies. - Social history:: Smoking status: Patient denies any tobacco usage or history of. ROS: 08:49 Constitutional: as per hpi ec2 Exam: 08:49 Constitutional: GEN: NAD Head: atraumatic Eyes: EOMI Ears: External ears are ec2 normal. CV: regular rate LUNGS: no respiratory distress ABD: non-distended, soft, left CVA TTP. SKIN: no evidence of rashes MSK: no evidence of trauma Vital Signs: 08:38 BP 158 / 75; Pulse 72; Resp 16; Temp 97.4; Pulse Ox 98% ; Weight 72.57 kg; Height 5 ft. ll1 4 in. ; Pain 10/10; 09:03 BP 156 / 75; Pulse 64; Resp 17; Pulse Ox 98% ; ll1 10:14 BP 159 / 74; Pulse 65; Resp 17; Pulse Ox 98% ; Pain 7/10; ll1 08:38 Body Mass Index 27.46 (72.57 kg, 162.56 cm) ll1 08:38 Pain Scale: Adult ll1 10:14 Pain Scale: Adult ll1 MDM: 08:40 Medical Screening Exam initiated ec2 08:49 Data reviewed: vital signs, nurses notes. ED course: Patient arrives today for left ec2 flank pain. Examination yields MSK and abdominal findings as above. Will obtain lab work, CT imaging and treat the patient's pain. Differential diagnosis considered include processes such as ureteral stone, diverticulitis, MSK pain.. 09:52 ED course: CT imaging negative. Suspect MSK pain. Will discharge home. Turn precautions ec2 given.. 08/08 08:48 Order name: CBC with Diff; Complete Time: 09:26 ec2 08/08 08:48 Order name: BMP; Complete Time: 09:26 ec2 08/08 08:48 Order name: UAM; Complete Time: 09:33 ec2 08/08 08:48 Order name: CT Abd/Pelvis - Without Contrast; Complete Time: 09:52 ec2 08/08 08:48 Order name: IV; Complete Time: 08:54 ec2 Administered Medications: 09:05 Drug: Ketorolac IVP 15 mg IVP once {Note: pain 1010 RASS 0.} Route: IVP; Site: right ll1 antecubital; 10:00 Follow up: Response: No adverse reaction; Pain is decreased; RASS: Alert and Calm (0) ll1 09:05 Drug: Ondansetron IVP 4 mg IVP once; over 2 minutes Route: IVP; Site: right antecubital;ll1 10:00 Follow up: Response: No adverse reaction; Nausea is decreased ll1 09:05 Drug: NS 0.9% IV 500 ml 500 ml IV at 1 bolus once; to be given as a bolus over 30 ll1 minutes Volume: 500 ml; Route: IV; Rate: 1 bolus; Site: right antecubital; 10:00 Follow up: Response: No adverse reaction; IV Status: Completed infusion; IV Intake: ll1 500ml 09:05 Drug: Lidoderm Topical Patch 5 % (700 mg/patch) 1 patches Topical once; leave on for 12 ll1 hours; cover most painful area; may cut into smaller pieces Route: Topical; Site: affected area; 10:01 Follow up: Response: No adverse reaction; Pain is decreased ll1 09:05 Drug: Acetaminophen PO 1000 mg PO once Route: PO; ll1 10:01 Follow up: Response: No adverse reaction; Pain is decreased ll1 10:00 Drug: Methocarbamol PO 500 mg PO once Route: PO; ll1 10:14 Follow up: Response: No adverse reaction; Pain is decreased; RASS: Alert and Calm (0) ll1 Disposition Summary: 08/08/24 09:53 Discharge Ordered Notes: Location: Home ec2 Condition: Stable ec2 Diagnosis - Low back pain ec2 Followup: ec2 - With: Private Physician - When: - Reason: Re-evaluation by your physician Discharge Instructions: - Discharge Summary Sheet ec2 - Acute Back Pain, Adult ec2 Forms: - Medication Reconciliation Form ec2 - Antibiotic Education ec2 - Prescription Opioid Use ec2 - Patient Portal Instructions ec2 - Leadership Thank You Letter ec2 Prescriptions: - methocarbamol 500 mg Oral tablet - take 1 tablet ORAL route 4 times per day; 20 tablet; Refills: 0, Product ec2 Selection Permitted Signatures: Dispatcher [employer] Patrick Parrish RN RN 1 Kade Shields MD MD ec2 Corrections: (The following items were deleted from the chart) 08:48 08:48 Abdomen Pelvis Wo Con+CT.RAD.BRZ ordered. EDMS EDMS
[2024-08-08] MEDS ORDERED: methocarbamoL 500 MG TAB ONE (09:56)
[2024-08-08 10:22] VITALS: TEMP 97.4; O2SAT 98
[2024-08-08 10:24] VITALS: BP 159/74
== END 2024-08-08 10:15 | disposition home or self-care (01) ==
LOC: ER 08:26
DX: M54.50 Low back pain, unspecified (principal)
CPT/HCPCS: 96361; 85025; 81001; 80048; 36415; 74176; 96375; 96374; 99284; J2003; J2405; J7040

== ENCOUNTER 2024-08-13 09:40 | Emergency (ER) | payer OTHER ==
[2024-08-13] MEDS ORDERED: ONDANSETRON 4 MG/2 ML VIAL ONE (10:09)
[2024-08-13] MEDS ORDERED: GABAPENTIN 300 MG CAP ONE (10:10)
[2024-08-13] MEDS ORDERED: KETOROLAC 30 MG/ML INJ ONE (10:10)
[2024-08-13] MEDS ORDERED: MORPHINE 4 MG/ML SYR ONE (10:10)
[2024-08-13] MEDS ORDERED: dexAMETHasone 10 MG/ML VIAL ONE (10:10)
--- NOTE | 2024-08-13 10:32 | RAD REPORT ---
EXAMINATION: CT LUMBAR SPINE WITHOUT CONTRAST CLINICAL INDICATION: Female, 69 years old. PAIN TECHNIQUE: Axial CT images were obtained through the lumbar spine in soft tissue and bone windows wit hout intravenous contrast. Coronal and Sagittal reformatted images were created from the data set. One or more of the following dose reduction techniques were used: Automated exposure control, adjustm ent of the mA and/ or kV according to patient size, and/or iterative reconstruction. Unless otherwise specified, incidental findings do not require dedicated imaging follow-up. COMPARISON: No prior exam. FINDINGS: For purposes of this dictation, it is assumed that there are 5 non rib-bearing lumbar type vertebrae, and the most caudal fully segmented lumbar vertebra is labeled L5. ALIGNMENT: The lumbar spine demonstrates normal alignment without scoliosis or spondylolisthesis. BONES: No significant soft tissue abnormalities. No aggressive osseous lesions. DISCS: Posterior disc bulges are present most notable at L3-4, L4-5. In combination with facet hypert rophy this results in moderate to significant central canal narrowing. Evidence of disc extrusion at L5-S1. Bilateral exit foraminal narrowing suspected most notable at L3-4 and L4-5. SOFT TISSUE: No soft tissue abnormalities. IMPRESSION: No acute lumbar spine abnormalities. Moderate lower lumbar degenerative spondylosis resulting in probable central canal and exit foraminal stenosis as described. Nonemergent follow-up MRI imaging would be useful for further characterization.
--- NOTE | 2024-08-13 11:01 | ER ---
Nurse's Notes [facility] Name: Awa Tracy Age: 69 yrs Sex: Female : 1955 Arrival Date: 08/13/2024 Time: 09:40 Bed 8 Private MD: Diagnosis: Low back pain Presentation: 08/13 09:52 Chief complaint: Patient states: Low back, L hip, and L leg pain have not gotten better ll1 since her visit here on Saturday. No new trauma or falls. Coronavirus screen: Client denies travel out of the [place] in the last 14 days. At this time, the client does not indicate any symptoms associated with coronavirus-19. Ebola Screen: Patient denies travel to an Ebola-affected area in the 21 days before illness onset. Initial Sepsis Screen: Does the patient meet any 2 criteria? No. Patient's initial sepsis screen is negative. Does the patient have a suspected source of infection? No. Patient's initial sepsis screen is negative. Risk Assessment: Do you want to hurt yourself or someone else? Patient reports no desire to harm self or others. Onset of symptoms. 09:52 Method Of Arrival: Wheelchair ll1 09:52 Acuity: NICHOL 3 ll1 Triage Assessment: 09:53 General: Appears uncomfortable, Behavior is calm, cooperative, appropriate for age. ll1 Pain: Complains of pain in back Pain radiates to left leg Quality of pain is described as aching, throbbing. Musculoskeletal: Reports pain in low back/L hip/L leg. Historical: - Allergies: 09:43 Bactrim; ll1 09:43 PENICILLINS; ll1 09:43 Sulfa (Sulfonamide Antibiotics); ll1 09:43 tramadol; ll1 - PMHx: 09:43 Hyperlipidemia; Hypertension; overactive bladder; shingles; ll1 - PSHx: 09:43 Appendectomy; back surgery; Cholecystectomy; hysterectomy; Operative procedure on knee; ll1 shoulder surgery; - Immunization history:: Adult Immunizations up to date. - Infectious Disease History:: Denies. - Social history:: Smoking status: Patient denies any tobacco usage or history of. - Family history:: not pertinent. Screenin:29 [facility] ED Fall Risk Assessment (Adult) History of falling in the last 3 months, ph including since admission No falls in past 3 months (0 pts) Confusion or Disorientation No (0 pts) Intoxicated or Sedated No (0 pts) Impaired Gait No (0 pts) Mobility Assist Device Used No (0 pt) Altered Elimination No (0 pt) Score/Fall Risk Level 0 - 2 = Low Risk Oriented to surroundings, Maintained a safe environment, Hourly rounding (assess needs \T\ fall precautionary measures) done. Abuse screen: Denies threats or abuse. Denies injuries from another. Nutritional screening: No deficits noted. Tuberculosis screening: No symptoms or risk factors identified. Assessment: 10:28 General: Appears in no apparent distress. uncomfortable, Behavior is calm, cooperative. ph Pain: Complains of pain in back Pain radiates to left leg. Neuro: Level of Consciousness is awake, alert, obeys commands, Oriented to person, place, time, situation. Cardiovascular: Capillary refill < 3 seconds in bilateral fingers Patient's skin is warm and dry. Respiratory: Airway is patent Respiratory effort is even, unlabored. Derm: Skin is pink, warm \T\ dry. Musculoskeletal: Circulation, motion, and sensation intact. Range of motion: intact in all extremities. 11:30 Reassessment: Patient appears in no apparent distress at this time. Patient and/or ph family updated on plan of care and expected duration. Pain level reassessed. Patient is alert, oriented x 3, equal unlabored respirations, skin warm/dry/pink. Vital Signs: 09:52 BP 162 / 79; Pulse 72; Resp 17; Temp 97.9; Pulse Ox 98% on R/A; Weight 72.57 kg; Height ll1 5 ft. 4 in. ; Pain 10/10; 11:30 BP 162 / 84; Pulse 68; Resp 18; Temp 97.9; Pulse Ox 100% on R/A; ph 09:52 Body Mass Index 27.46 (72.57 kg, 162.56 cm) ll1 09:52 Pain Scale: Adult ll1 ED Course: 09:42 Patient arrived in ED. im 09:43 Jacob Greer MD is Attending Physician. rt 09:43 Arm band placed on Patient placed in an exam room, on a stretcher. ll1 09:53 Triage completed. ll1 10:14 CT Lumbar Spine Wo Con In Process Unspecified. EDMS 10:28 Inserted saline lock: 22 gauge in right antecubital area, using aseptic technique. ph Flushed with 10 mL NS. 10:29 Patient has correct armband on for positive identification. Bed in low position. Call ph light in reach. Side rails up X 1. Pulse ox on. NIBP on. Door closed. Noise minimized. Lights dimmed. Warm blanket given. 11:30 Maura Llanes RN is Primary Nurse. ph 11:30 No provider procedures requiring assistance completed. IV discontinued, intact, ph bleeding controlled, No redness/swelling at site. Pressure dressing applied. Administered Medications: 10:27 Drug: morphine IVP or IV 2 mg IVP once over 4 mins Route: IVP; Infused Over: 4 mins; ph Site: right antecubital; 11:31 Follow up: Response: No adverse reaction; Pain is decreased ph 10:27 Drug: Ondansetron IVP 4 mg IVP once; over 2 minutes Route: IVP; Site: right antecubital;ph 11:31 Follow up: Response: No adverse reaction; Pain is decreased ph 10:27 Drug: Gabapentin PO 300 mg PO once Route: PO; ph 11:31 Follow up: Response: No adverse reaction; Pain is decreased ph 10:27 Drug: Ketorolac IVP 15 mg IVP once Route: IVP; Site: right antecubital; ph 11:31 Follow up: Response: No adverse reaction; Pain is decreased ph 10:28 Drug: Dexamethasone IVP 10 mg IVP once; (not to exceed 40 mg) Route: IVP; Site: right ph antecubital; 11:30 Follow up: Response: No adverse reaction ph Medication: 10:29 VIS not applicable for this client. ph Outcome: 11:00 Discharge ordered by MD. rt 11:31 Discharged to home via wheelchair, with significant other, ph 11:31 Condition: good 11:31 Discharge instructions given to patient, Instructed on discharge instructions, follow up and referral plans. medication usage, Demonstrated understanding of instructions, follow-up care, medications, Prescriptions given X 5 11:32 Patient left the ED. ph Signatures: Dispatcher [employer] EDME Maura Llanes RN RN ph Patrick Torres RN RN ll1 Jacob Greer MD MD rt Cherrie Sifuentes Corrections: (The following items were deleted from the chart) 09:53 09:52 Chief complaint: Patient states: Low back, L hip, and L leg pain have not gotten ll1 better since her visit here on Saturday. ll1
--- NOTE | 2024-08-13 11:01 | EDPHYS ---
Physician Documentation [facility] Name: Awa Tracy Age: 69 yrs Sex: Female : 1955 Arrival Date: 08/13/2024 Time: 09:40 Bed 8 Private MD: ED Physician Jacob Greer HPI: 08/13 10:14 This 69 yrs old Female presents to ER via Wheelchair with complaints of Low rt Back Pain, Hip Pain, Leg Pain, all left side. 10:14 Patient presents to the ED with persistence of a left-sided lower back pain that rt radiates down the back of the left leg. The patient is currently undergoing further evaluation by her primary care, does have an appoint with her spine physician and has an MRI appointment coming up. States that the pain has worsened. Had a recent evaluation in the ED with a negative CT scan of the abdomen pelvis, urinalysis that was negative for kidney stone. Is taken methocarbamol, Tylenol with only modest relief. Denies other acute complaints at this time, symptoms are moderate in severity, no other aggravating or alleviating factors.. Historical: - Allergies: 09:43 Bactrim; ll1 09:43 PENICILLINS; ll1 09:43 Sulfa (Sulfonamide Antibiotics); ll1 09:43 tramadol; ll1 - PMHx: 09:43 Hyperlipidemia; Hypertension; overactive bladder; shingles; ll1 - PSHx: 09:43 Appendectomy; back surgery; Cholecystectomy; hysterectomy; Operative procedure on knee; ll1 shoulder surgery; - Immunization history:: Adult Immunizations up to date. - Infectious Disease History:: Denies. - Social history:: Smoking status: Patient denies any tobacco usage or history of. - Family history:: not pertinent. ROS: 10:14 Constitutional: Negative for fever, chills, and weight loss, Cardiovascular: Negative rt for chest pain, palpitations, and edema, Respiratory: Negative for shortness of breath, cough, wheezing, and pleuritic chest pain, Abdomen/GI: Negative for abdominal pain, nausea, vomiting, diarrhea, and constipation, MS/Extremity: Negative for injury and deformity, Skin: Negative for injury, rash, and discoloration, 10:14 Back: Positive for pain at rest, pain with movement, Exam: 10:14 Constitutional: This is a well developed, well nourished patient who is awake, alert, rt and in no acute distress. Head/Face: Normocephalic, atraumatic. Chest/axilla: Normal chest wall appearance and motion. Nontender with no deformity. No lesions are appreciated. Cardiovascular: Regular rate and rhythm with a normal S1 and S2. No gallops, murmurs, or rubs. Normal PMI, no JVD. No pulse deficits. Respiratory: Lungs have equal breath sounds bilaterally, clear to auscultation and percussion. No rales, rhonchi or wheezes noted. No increased work of breathing, no retractions or nasal flaring. Abdomen/GI: Soft, non-tender, with normal bowel sounds. No distension or tympany. No guarding or rebound. No evidence of tenderness throughout. Skin: Warm, dry with normal turgor. Normal color with no rashes, no lesions, and no evidence of cellulitis. MS/ Extremity: Pulses equal, no cyanosis. Neurovascular intact. Full, normal range of motion. Neuro: Awake and alert, GCS 15, oriented to person, place, time, and situation. Cranial nerves II-XII grossly intact. Motor strength 5/5 in all extremities. Sensory grossly intact. Cerebellar exam normal. Normal gait. 10:14 Back: Tenderness at the left lower lumbar region to the SI notch, no midline tenderness, no overlying skin changes, Vital Signs: 09:52 BP 162 / 79; Pulse 72; Resp 17; Temp 97.9; Pulse Ox 98% on R/A; Weight 72.57 kg; Height ll1 5 ft. 4 in. ; Pain 10/10; 11:30 BP 162 / 84; Pulse 68; Resp 18; Temp 97.9; Pulse Ox 100% on R/A; ph 09:52 Body Mass Index 27.46 (72.57 kg, 162.56 cm) ll1 09:52 Pain Scale: Adult ll1 MDM: 09:50 Medical Screening Exam initiated rt 11:11 Differential diagnosis: Herniated disc, musculoskeletal pain, lumbosacral rt radiculopathy, shingles. Data reviewed: vital signs, nurses notes, radiologic studies. Test considered but Not performed: Other Details Patient had recent evaluation for kidney stone with labs, urinalysis that were all unremarkable. Do not believe that repeats are needed.. Care significantly affected by the following chronic conditions: Hypertension. Counseling: I had a detailed discussion with the patient and/or guardian regarding the historical points, exam findings, and any diagnostic results supporting the discharge/admit diagnosis, radiology results, the need for outpatient follow up. Response to treatment: the patient's symptoms have mildly improved after treatment. 08/13 09:58 Order name: CT Lumbar Spine Wo Con; Complete Time: 10:41 rt Administered Medications: 10:27 Drug: morphine IVP or IV 2 mg IVP once over 4 mins Route: IVP; Infused Over: 4 mins; ph Site: right antecubital; 11:31 Follow up: Response: No adverse reaction; Pain is decreased ph 10:27 Drug: Ondansetron IVP 4 mg IVP once; over 2 minutes Route: IVP; Site: right antecubital;ph 11:31 Follow up: Response: No adverse reaction; Pain is decreased ph 10:27 Drug: Gabapentin PO 300 mg PO once Route: PO; ph 11:31 Follow up: Response: No adverse reaction; Pain is decreased ph 10:27 Drug: Ketorolac IVP 15 mg IVP once Route: IVP; Site: right antecubital; ph 11:31 Follow up: Response: No adverse reaction; Pain is decreased ph 10:28 Drug: Dexamethasone IVP 10 mg IVP once; (not to exceed 40 mg) Route: IVP; Site: right ph antecubital; 11:30 Follow up: Response: No adverse reaction ph Disposition Summary: 08/13/24 11:00 Discharge Ordered Notes: Location: Home rt Problem: an ongoing problem rt Symptoms: have improved rt Condition: Stable rt Diagnosis - Low back pain rt Followup: rt - With: Private Physician - When: 2 - 3 days - Reason: Discharge Instructions: - Discharge Summary Sheet rt - Acute Back Pain, Adult rt - Lumbosacral Radiculopathy rt Forms: - Medication Reconciliation Form rt - Antibiotic Education rt - Prescription Opioid Use rt - Patient Portal Instructions rt - Leadership Thank You Letter rt Prescriptions: - Lidoderm 5 % Topical adhesive patch, medicated - apply 1 patch TOPICAL route daily leave on most painful area for up to 12 hrs; rt 10 patch; Refills: 0, Product Selection Permitted - acetaminophen-codeine 300-30 mg Oral tablet - take 1 tablet ORAL route every 8 hours as needed for pain; 15 tablet; Refills: rt 0, Product Selection Permitted - gabapentin 100 mg Oral capsule - take 1 capsule ORAL route every 8 hours; 21 capsule; Refills: 0, Product rt Selection Permitted - Medrol (Rogelio) 4 mg Oral Tablets, Dose Pack - take 1 tablet ORAL route as directed - follow package instructions; 1 packet; rt Refills: 0, Product Selection Permitted - methocarbamol 500 mg Oral tablet - take 1 tablet ORAL route 4 times per day; 30 tablet; Refills: 0, Product rt Selection Permitted Signatures: Dispatcher [employer] Maura Viera RN RN ph Patrick Torres RN RN ll1 Jacob Greer MD MD rt
[2024-08-13 11:47] VITALS: TEMP 97.9
[2024-08-13 11:52] VITALS: BP 162/84; O2SAT 100
== END 2024-08-13 11:32 | disposition home or self-care (01) ==
LOC: ER 09:40
DX: M54.50 Low back pain, unspecified (principal)
CPT/HCPCS: 72131; 96375; 96374; 99284; J1100; J2405

== ENCOUNTER 2024-10-16 14:56 | Emergency (ER) | payer OTHER ==
[2024-10-16] MEDS ORDERED: ONDANSETRON 4 MG (ODT) TAB ONE (15:08)
[2024-10-16] MEDS ORDERED: ACETAMINOPHEN 500 MG TAB ONE (15:08)
--- NOTE | 2024-10-16 16:10 | RAD REPORT ---
Procedure: Chest Single View HISTORY: Chest pain COMPARISON: 2023 FINDINGS: The lungs appear clear of acute infiltrate. No significant pleural effusion noted. The heart is normal size. IMPRESSION: No acute abnormality is displayed.
--- NOTE | 2024-10-16 16:11 | RAD REPORT ---
Exam: Sternum x-ray Clinical history chest pain FINDINGS: Bones are osteoporotic. No fracture visualized
--- NOTE | 2024-10-16 16:12 | RAD REPORT ---
EXAMINATION: Lumbar Spine 3 Views CLINICAL INDICATION: Back pain FINDINGS: No fracture or dislocation seen. Bones are osteoporotic. Mild spondylosis lumbar spine. Osteoarthritis facet joints lower lumbar spine. Minimal scoliosis
--- NOTE | 2024-10-16 16:13 | RAD REPORT ---
Exam:Knee Left 3 View HISTORY: Left knee pain FINDINGS: No fracture or dislocation seen Mild medial joint space narrowing.. Osteoporosis
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
[2024-10-16 16:38] VITALS: TEMP 98.2
[2024-10-16 16:40] VITALS: BP 149/88; O2SAT 98
== END 2024-10-16 16:34 | disposition home or self-care (01) ==
LOC: ER 14:56
DX: S80.02XA Contusion of left knee, initial encounter (principal); V49.50XA Passenger injured in collision with unspecified motor vehicles in traffic accident, initial encounter
CPT/HCPCS: 71045; 71120; 72100; 73562; Q0162; 99283